=== PATIENT | male | born 1965 | race Caucasian/White ===

== ENCOUNTER → 2021-01-28 12:23 | Outpatient (REF) | payer MEDICAID, SELFPAY ==
--- NOTE | 2021-01-28 13:00 | CA_ITS ---
Transthoracic Echocardiogram Patient (Last, First, Middle): Radhames Carrillo, Gender: Male Date of : 1965 Age: 55 Procedure Date: 01/28/2021 Procedure Type: Transthoracic Echocardiogram Location: OP Height: 180.34 cm Weight: 108.86 kg BSA: 2.28 m2 Heart Rate: bpm BP: 122 / 80 mmHg Echocardiograph Tech: Referring MD: Hever Finch MD Symptoms: I42.8 CARDIOMYOPATHY Study Quality: Good ECG Rhythm: Sinus Conclusions: - The left ventricular systolic function is normal. The visually estimated ejection fraction is between 60-65%. - No obvious valvular pathology seen on this study. Findings Left Ventricle Normal left ventricular cavity size. There is normal left ventricular wall thickness. The left ventricular systolic function is normal. The visually estimated ejection fraction is between 60-65%. There is no evidence of regional wall motion abnormalities. Diastolic function is normal for age. Right Ventricle Normal right ventricular cavity size and systolic function. Atria The left atrium is normal in size. The right atrium is normal in size. Aortic Valve There is a normal trileaflet aortic valve. There is no aortic valve stenosis. There is no aortic valve regurgitation. Mitral Valve The mitral valve appears normal. There is no mitral valve regurgitation. There is no mitral valve stenosis. Pulmonic Valve The pulmonic valve was not well visualized. Tricuspid Valve Normal tricuspid valve structure. There is trace tricuspid valve regurgitation. The pulmonary artery systolic pressure is normal. Great Vessels Top normal ascending aortic size at 3.7 cm. Venous The inferior vena cava is normal in size and collapses greater than 50% with inspiration. Pericardium/Pleural There is no evidence of pericardial effusion. Prior Study Comparison No significant change compared to prior study dated: 11/14/2019. Recommendations, Care & Conclusions No obvious valvular pathology seen on this study. Measurements 2D Linear Measurements IVSd: 1.02 0.6-0.9/0.6-1.0 cm LVIDd: 4.35 3.9-5.3/4.2-5.9 cm LVIDd Index: 1.91 2.4-3.2/2.2-3.1 cm/m2 LVIDs: 2.88 2.0-3.6 cm LVPWd: 0.96 0.7-1.1 cm Ao Root: 3.80 2.1-3.5 cm LA Diam: 3.80 2.7-3.8/3.0-4.0 cm LAIDs Index: 1.67 1.5-2.3 cm/m2 LV Mass: 178.55 67-162/88-224 g LV Mass Index: 78.31 43-95/49-115 g/m2 LVOT Diam: 2.20 3.0+(-)1.3 cm 2D Systolic Function EF 4C: 63.50 >55% EF 2C: 50.00 >55% EF BiP: 59.30 >55% Mitral Valve MV Pk E: 0.67 MV PK A: 0.91 MV Decel Time: 92.00 E/A: 0.70 E'Lateral: 11.10 E'Medial: 6.67 E/E' Med: 10.10 E/E' Lat: 6.10 PHT: 27.00 MVA PHT: 8.15 Decel Grundy: 7.36 Aortic Valve AoV Pk Alan: 1.44 AoV Mn Alan: 0.92 AoV VTI: 0.23 AoV Pk Grad: 8.00 Aov Mn Grad: 4.00 EDOUARD Cont.VTI: 3.38 LVOT LVOT Pk Alan: 1.15 LVOT Mn Alan: 0.76 LVOT VTI: 0.20 LVOT Pk Grad: 5.00 LVOT Mn Grad: 3.00 LVOT Diam: 2.20 LVOT Area: 3.80 Diastolic Function MV Pk E: 0.67 MV Pk A: 0.91 E/A: 0.70 E'Medial: 6.67 E/E' Med: 10.10 E' Laterial: 11.10 E/E' Lat: 6.10 Tricuspid Valve TR Pk Alan: 2.50 TR Pk Grad: 25.00 RA Press: 3.00 RVSP: 28.00 Great Vessels Aorta Ao Root-2D: 3.80 2.0-3.7 cm Ao Asc: 3.70 2.1-3.4 cm Pulmonary Valve PV Pk Alan: 1.00 Peak PV Grad: 4.00 Updated in Other Vendor System with Status of Final James Julian MD electronically signed on 01/28/2021 4:45:48 PM with status of Final
== END ==
LOC: HO.CARD 12:23
PROVIDERS: PCP Family Medicine; Visit Provider Internal Medicine Cardiovascular Disease
DX: I42.9 Cardiomyopathy, unspecified (principal)
CPT/HCPCS: 93306

== ENCOUNTER → 2021-04-24 09:44 | Outpatient (REF) | payer MEDICAID, SELFPAY ==
--- NOTE | ~2021-04-24 | NM_ITS ---
Myocardial perfusion study Indication: Chest pain to evaluate for myocardial ischemia Technique: The patient was brought in for a Lexiscan perfusion study on 04/24/2021. Patient performed low-level exercise and was injected 0.4 mg of Lexiscan intravenously. Within a minute of injection, 35 mCi of sestamibi was given intravenously. Images were obtained using the SPECT gamma camera interlaced with the gating device. Images were obtained in supine position. Resting perfusion study was performed on 04/25/2021. Patient was administered 35 mCi of sestamibi intravenously at rest. Images were then obtained in supine position. Images obtained with and without CT attenuation. Total DLP 104 mGy-cm. Images were processed with the software and compared side to side in short axis, horizontal long axis and vertical long axis views. Findings: The stress perfusion study showed nondistended images show mildly reduced uptake in the inferior wall of the LV myocardium. Remainder of the LV myocardium normally perfused. Attenuation corrected images show normal uptake of radiotracer in all segments of LV myocardium. The gated study shows normal LV systolic function with calculated LVEF of 70%. LV cavity is normal in size. The gated study shows normal systolic wall thickening and contraction of segments. Resting study shows no change in perfusion in compared to stress perfusion study. Gating at rest reveals normal systolic wall motion with ejection fraction at 57%. The findings are consistent with normal myocardial perfusion. NM/NM gopi perf SPECT rest & str Impression: 1. Myocardial perfusion imaging study shows normal myocardial perfusion 2. Gated LVEF is 70% 3. Transient ischemic dilatation not present EKG is nondiagnostic for ischemia
--- NOTE | 2021-04-24 09:51 | CA_ITS ---
Acquisition Time: 2021-04-24 10:05:56 Total Exercise Time: 00:02:00 Test Indications: SOB, CP Medications: SEE CHART Protocol: LEXISCAN Max HR: 122 BPM 73% of Pred: 167 BPM Max BP: 130/080 mmHG Max Work Load: 1.0 METS Pharmacological stress test with Lexiscan injection, while sitting and kicking his legs, without anginal symptoms, with isolated PVC, with normotensive response to injection, with nondiagnostic EKG for ischemia. Nuclear images pending. Test reviewed with Dr Saucedo. Referred By: Hever Finch Overread By: MARIAN NOVAK
== END ==
LOC: HO.CARD 09:44
PROVIDERS: Visit Provider Internal Medicine Cardiovascular Disease
DX: R07.9 Chest pain, unspecified (principal); I42.9 Cardiomyopathy, unspecified
CPT/HCPCS: 78452; 93017; A9500; J0280; J2785

== ENCOUNTER 2021-04-28 00:41 | Emergency (ER) | payer MEDICAID, SELFPAY ==
--- NOTE | 2021-04-28 | ECG_ITS ---
Test Reason : WEAKNESS Blood Pressure : / mmHG Vent. Rate : 109 BPM Atrial Rate : 109 BPM P-R Int : 134 ms QRS Dur : 088 ms QT Int : 338 ms P-R-T Axes : 034 041 053 degrees QTc Int : 455 ms Sinus tachycardia Possible Left atrial enlargement Nonspecific ST and T wave abnormality Abnormal ECG When compared with ECG of 27-OCT-2018 00:25, No significant change was found Referred By: Generic ED Physician Electronically Signed By:MARIN LANG MD
--- NOTE | ~2021-04-28 | XR_ITS ---
EXAMINATION: XR CHEST CLINICAL INFORMATION: sob COMPARISON: None TECHNIQUE: Frontal view of the chest was obtained. FINDINGS: Low lung volumes. Patchy linear opacities in both lungs most consistent with atelectasis. No pneumothorax or pleural effusion. Cardiac and mediastinal contours are normal. Pulmonary vasculature is unremarkable. No acute osseous findings. XR/XR chest 1V IMPRESSION: Low lung volumes with bibasilar lateral linear subsegmental atelectasis. No focal airspace consolidation.
--- NOTE | ~2021-04-28 | CT_ITS ---
EXAMINATION: CT ABDOMEN AND PELVIS WITHOUT CONTRAST CLINICAL INFORMATION: Abdominal pain. COMPARISON: 04/25/2019 TECHNIQUE: Multidetector volumetric imaging was performed from the superior aspect of the liver through the pubic symphysis. Sagittal and coronal reformatted images were obtained on the technologist's workstation. This CT examination was performed using dose optimization techniques as appropriate, variously including the following: *Automated exposure control *Adjustment of mA and/or kV according to patient size (this includes techniques or standardized protocols for targeted exams where dose is matched to indication/reason for exam; i.e. extremities or head) *Use of iterative reconstruction technique DLP: 812 mGy-cm FINDINGS: LUNG BASES: Mild subsegmental bibasilar atelectasis, dependent in location. LIVER, GALLBLADDER, AND BILIARY TREE: Relative hypoattenuation of the hepatic parenchyma is consistent with steatosis. There is focal fatty sparing around the gallbladder fossa. Liver is enlarged, measuring 25 cm craniocaudal. Contour is normal. No focal lesions are identified in these unenhanced images. No biliary ductal dilatation. The gallbladder is unremarkable with no evidence of radiopaque gallstones, gallbladder wall thickening, or obvious pericholecystic inflammatory changes. PANCREAS: Unremarkable. SPLEEN: Enlarged, measuring 17 cm in greatest diameter. No focal lesions. ADRENAL GLANDS: Unremarkable. KIDNEYS AND URETERS: The kidneys are normal in size, shape, and attenuation. No hydronephrosis, hydroureter, or calculi seen. Mild bilateral perinephric stranding. BLADDER: Unremarkable. GASTROINTESTINAL TRACT: Stomach, small bowel, and colon are normal in caliber. There is mild pericolonic fat stranding in the cecum and ascending colon. Sensitivity for bowel wall thickening is somewhat limited given the absence of intravenous or oral contrast material. Mild bowel wall thickening is present in the ascending and transverse colon as well. Appendix is not well seen. No evidence of acute appendicitis. No intraperitoneal free fluid or free air. ABDOMINAL WALL: No significant hernia is appreciated. LYMPH NODES: A few small reactive mesenteric nodes are present in the right lower quadrant, measuring up to 8 mm in diameter. No retroperitoneal adenopathy. VASCULAR: A few foci of calcific atherosclerosis are present at the major visceral branches of the abdominal aorta. No aneurysmal dilatation. PELVIC VISCERA: The prostate and seminal vesicles are unremarkable. OSSEOUS STRUCTURES: Mild to moderate degenerative disc disease is present at L5-S1. Mild osteoarthritis is evident in both hips. Focal AVN is evident at the left femoral head, likely chronic. CT/CT abdomen pelvis wo con IMPRESSION: 1. Mild pericolonic fat stranding in the cecum and ascending colon with subtle wall thickening as can be seen with mild colitis. Sensitivity and specificity are somewhat limited without oral or intravenous contrast. 2. Hepatosplenomegaly. Hepatic steatosis.
[2021-04-28 00:49] VITALS: BP 123/69; BP 136/86; PULSE 105; RESP 30; TEMP 37.2; O2SAT 89; O2SAT 94; BMI 33.5
--- NOTE | 2021-04-28 01:17 | ED.NAVMDI ---
HPI - Nausea/Vomiting/Diarrhea General Chief complaint: Nausea/Vomiting/Diarrhea Stated complaint: abd pain vomiting diarrhea Time Seen by Provider: 04/28/21 01:16 History of Present Illness HPI Narrative: 55-year-old male with a history of non-Hodgkin's lymphoma presents today with having abdominal pain. Diffuse. Associated with nausea vomiting diarrhea. No travel history patient from home. Positive history of non-Hodgkin's. Currently not on chemo or radiation. Patient having some fever with these episodes. Patient denies any coughing congestion upper respiratory symptoms. Had had his coronavirus vaccine x2 over 2 weeks ago. Patient denies any blood in his stool. Pain is diffuse 03/10 Related Data Previous Rx's Medication Instructions Recorded ondansetron 4 mg PO TID PRN 5 Days #10 tab 04/28/21 Allergies Allergy/AdvReac Type Severity Reaction Status Date / Time iodine [IODINE] Allergy Unknown DIFFICULTY Unverified 07/18/20 16:25 BREATHING SEAFOOD Allergy Unknown ANAPHYLAXIS Uncoded 07/18/20 16:25 seafood Allergy Unknown Uncoded 05/06/20 00:00 Review of Systems Review of Systems: Constitutional: No Weight loss, No Fever, No Chills, No Night Sweats, No Fatigue, No Malaise ENT/Mouth: No Hearing loss, No Ear Pain, No Nasal Congestion, No Sinus Pain, No Hoarseness, No sore throat, No Rhinorrhea, No Swallowing Difficulty Eyes: No Eye Pain, No Swelling, No Redness, No Foreign Body, No Discharge, No Vision Changes Cardiovascular: No Chest Pain, No SOB, No Dyspnea on Exertion, No Orthopnea, No Edema, No Palpitations Respiratory: No Cough, No Sputum, No Wheezing, No Smoke Exposure, No Dyspnea Gastrointestinal: positive nausea, positive vomiting positive diarrhea Genitourinary: no irregular bleeding, No Dysuria, No Urinary Frequency, No Hematuria, No Urinary Incontinence, No Urgency, No Flank Pain, No Urinary Flow Changes, No Hesitancy Musculoskeletal: No joint pain, No Myalgias, No Joint Swelling Skin: No Skin Lesions, No rash Neuro: No Weakness, No Numbness, No Paresthesias, No Loss of Consciousness, No Dizziness, No Headache Psych: No Anxiety/Panic, No Depression, No SI/HI/AH/VH, No Social Issues, Heme/Lymph: No Bruising, No Bleeding,No Lymphadenopathy Endocrine: No Polyuria, No Polydipsia, No Temperature Intolerance [facility] Past Medical History Attestation statement: The following information was validated with the patient. Social History Social History Advance Directives: No Physical Exam Vital Signs: Vital Signs: Last Vital Signs Temp 99.0 F 04/28/21 00:49 Pulse 107 H 04/28/21 02:00 Resp 32 H 04/28/21 02:00 BP 128/71 04/28/21 02:00 Pulse Ox 96 04/28/21 02:00 Oxygen Flow Rate 2 04/28/21 00:49 Body Mass Index 33.5 Appearance: Alert. Oriented X3. No acute distress. Eyes: Pupils equal, round and reactive to light. ENT: Pharynx normal. Neck: Normal inspection. Neck supple. No lymph nodes noted. No crepitus CVS: Normal heart rate and rhythm. Pulses normal. Normal S1 and S2 Respiratory: No respiratory distress. Breath sounds normal. No Wheezing. No rales Abdomen: Soft and nontender. No rigidity. No distention. good BS x4 Skin: Skin warm and dry. Normal skin color. Normal skin turgor. Extremities: No lower extremity edema. Neurovascular intact to all extremities. No Lacerations. No Rash Neuro: Oriented X 3. No motor deficit. No sensory deficit. Moving all extermities. No slurred speech MDM - Nausea/Vomiting/Diarrhea MDM Narrative Medical decision making narrative: CT scan of the abdomen negative for obstruction, abscess, perforation. LFTs are normal white counts normal hemoglobin is normal. Patient's lipase was normal. No evidence for pancreatitis. Chest x-ray was negative for any acute evidence of pneumonia pneumothorax. Patient's COVID test was negative. In stable condition will discharge patient home Lab Data Result diagrams: 04/28/21 01:49 04/28/21 01:49 Labs: Lab Results 04/28/21 04/28/21 04/28/21 Range/Units 01:49 01:49 01:49 WBC 9.0 (4.8-10.8) X10*3/uL RBC 4.34 L (4.60-5.80) X10*6/uL Hgb 13.5 L (14.0-18.0) g/dl Hct 41.7 L (42-52) % MCV 96.1 (80-98) fL MCH 31.1 (27.0-33.0) pg MCHC 32.4 (31.0-36.0) g/dl RDW 12.5 (11.0-16.0) % Plt Count 128 L (160-400) X10*3/uL MPV 9.7 (9.4-12.4) fL Immature Gran % (Auto) 0.4 (0.0-0.4) % Neut % (Auto) 84.2 H (45-73) % Lymph % (Auto) 9.2 L (20-40) % [place] % (Auto) 5.9 (2-11) % Eos % (Auto) 0.1 (0-4) % Baso % (Auto) 0.2 (0-2) % Lymph # (Auto) 0.8 L (1.2-4.9) X10*3/uL [place] # (Auto) 0.5 (0.1-1.2) X10*3/uL Eos # (Auto) 0.0 (0.0-0.4) X10*3/uL Baso # (Auto) 0.0 (0.0-0.2) X10*3/uL Abs Immat Gran (auto) 0.04 H (0.00-0.03) X10*3/uL Absolute Neuts (auto) 7.5 (2.0-8.3) X10*3/uL Absolute Nucleated RBC 0.000 (0.0-0.012) X10*3/uL Nucleated RBC % (auto) 0.0 (0.0-0.2) /100WBC Sodium 135 (135-145) mmol/L Potassium 4.1 (3.3-5.1) mmol/L Chloride 99 (96-108) mmol/L Carbon Dioxide 23 (22-29) mmol/L Anion Gap 17 (12-20) BUN 14 (9-16) mg/dL Creatinine 0.97 (0.5-1.4) mg/dL Estim Creat Clear Calc 110.5 Estimated GFR > 60 Random Glucose 223 H (60-115) mg/dL Calcium 9.5 (8.4-10.2) mg/dL Total Bilirubin 0.9 (0.0-1.0) mg/dL AST 35 (5-37) U/L ALT 45 H (0-40) U/L Alkaline Phosphatase 90 (39-117) U/L Total Protein 7.4 (6.5-8.0) g/dL Albumin 4.5 (3.5-5.0) g/dL Lipase 30 (8-78) U/L COVID-19 (LAYLA) Negative (Negative) COVID-19 Clin Com See Note Discharge Plan Discharge Clinical Impression: Gastroenteritis Patient Disposition: Home, Self-Care Instructions: Acute Nausea and Vomiting (ED) Prescriptions: New ondansetron 4 mg tablet,disintegrating 4 mg PO TID PRN (Reason: nausea and vomiting) 5 Days Qty: 10 RF: 0 Referrals: Renetta Oliveros MD [Primary Care Provider] - 2 days
[2021-04-28 01:54] LABS: Basophils Percent Auto 0.2 % (0-2); Eosinophils Percent Auto 0.1 % (0-4); Hemoglobin 13.5 g/dl (14.0-18.0); MANUAL DIFF FLAG NO; PLT CLUMP 1; SCAN SMEAR FLAG 1
[2021-04-28 01:56] LABS: Hematocrit 41.7 % (42-52); Imm Gran Abs Auto 0.04 X10*3/uL (0.00-0.03); Imm Gran Pct Auto 0.4 % (0.0-0.4); Lymphocytes Absolute Auto 0.8 X10*3/uL (1.2-4.9); Lymphocytes Percent Auto 9.2 % (20-40); Mean Corpuscular HGB Conc 32.4 g/dl (31.0-36.0); Mean Corpuscular Hemoglobin 31.1 pg (27.0-33.0); Mean Corpuscular Volume 96.1 fL (80-98); Mean Platelet Volume 9.7 fL (9.4-12.4); Monocytes Absolute Auto 0.5 X10*3/uL (0.1-1.2); Monocytes Percent Auto 5.9 % (2-11); Neutrophils Absolute Auto 7.5 X10*3/uL (2.0-8.3); Neutrophils Percent Auto 84.2 % (45-73); Platelet Count 128 X10*3/uL (160-400); Red Blood Count 4.34 X10*6/uL (4.60-5.80); Red Cell Distribution Width 12.5 % (11.0-16.0)
[2021-04-28 02:00] VITALS: BP 128/71; PULSE 107; RESP 32; O2SAT 96
[2021-04-28] MEDS: 0.9 % Sodium Chloride 1,000 ML 999 ML IV (02:07)
[2021-04-28] MEDS: ondansetron HCL 4 MG/2 ML VIAL IVPUSH (02:08)
[2021-04-28 02:10] LABS: COVID-19 Test Negative (Negative); IDNOW Serial# 9DD0AD1C
[2021-04-28 02:22] LABS: Alanine Aminotransferase 45 U/L (0-40); Albumin Level 4.5 g/dL (3.5-5.0); Alkaline Phosphatase 90 U/L (39-117); Anion Gap 17 (12-20); Aspartate Amino Transferase 35 U/L (5-37); Bilirubin Total 0.9 mg/dL (0.0-1.0); Blood Urea Nitrogen 14 mg/dL (9-16); Calcium 9.5 mg/dL (8.4-10.2); Carbon Dioxide 23 mmol/L (22-29); Chloride 99 mmol/L (96-108); Creatinine Clr Calc Pharmacy 110.5; Estimated Glomerular Filt Rate > 60; Glucose Random 223 mg/dL (60-115); Potassium 4.1 mmol/L (3.3-5.1); Sodium 135 mmol/L (135-145); Total Protein 7.4 g/dL (6.5-8.0)
[2021-04-28 03:34] LABS: Lipase 30 U/L (8-78)
[2021-04-28 04:00] VITALS: BP 119/66; PULSE 112; RESP 16; O2SAT 97
[2021-04-28 05:37] VITALS: BP 115/57; PULSE 111; RESP 20; O2SAT 92
== END 2021-04-28 05:46 | disposition home or self-care (01) ==
PROVIDERS: Emergency Provider Emergency Medicine Emergency Medical Services; PCP Family Medicine
DX: K52.9 Noninfective gastroenteritis and colitis, unspecified (principal); Z85.72 Personal history of non-Hodgkin lymphomas; Z20.822 Contact with and (suspected) exposure to COVID-19
CPT/HCPCS: 36415; 71045; 74176; 80053; 83690; 85025; 87635; 93005; 96361; 96374; 99284; 99285; J2405

== ENCOUNTER 2021-06-09 17:01 | Emergency (ER) | payer MEDICAID, SELFPAY ==
--- NOTE | 2021-06-09 18:37 | PC.NURSE ---
pt left without being triaged
== END 2021-06-09 18:38 | disposition left against medical advice (07) ==
PROVIDERS: Emergency Provider Emergency Medicine
DX: R50.9 Fever, unspecified (principal); R19.7 Diarrhea, unspecified

== ENCOUNTER 2021-09-12 08:07 | Outpatient (REF) | payer MEDICAID, SELFPAY | END 2021-09-12 08:08 | disposition home or self-care (01) | LOC: HO.LAB 08:07 | PROVIDERS: Visit Provider Internal Medicine | DX: Z20.822 Contact with and (suspected) exposure to COVID-19 (principal) | CPT/HCPCS: C9803; U0003; U0005 ==

== ENCOUNTER 2021-11-07 12:05 | Outpatient (REF) | payer MEDICAID, SELFPAY ==
[2021-11-07 13:34] LABS: Binax Internal Control QC Valid; Binax Now Covid-19 Ag Positive (Negative)
== END 2021-11-07 12:06 | disposition home or self-care (01) ==
LOC: HO.LAB 12:05
PROVIDERS: Visit Provider Internal Medicine
DX: Z20.822 Contact with and (suspected) exposure to COVID-19 (principal)
CPT/HCPCS: 36415; C9803

== ENCOUNTER 2021-11-21 09:53 | Outpatient (REF) | payer MEDICAID, SELFPAY ==
[2021-11-21 10:17] LABS: Binax Internal Control QC Valid; Binax Now Covid-19 Ag Negative (Negative)
== END 2021-11-21 09:54 | disposition home or self-care (01) ==
LOC: HO.LAB 09:53
PROVIDERS: Visit Provider Internal Medicine
DX: Z20.822 Contact with and (suspected) exposure to COVID-19 (principal)
CPT/HCPCS: C9803

== ENCOUNTER → 2022-04-13 08:24 | Outpatient (BNV) | payer MEDICAID, SELFPAY | PROVIDERS: PCP Family Medicine; Visit Provider Internal Medicine | DX: C81.90 Hodgkin lymphoma, unspecified, unspecified site (principal) | CPT/HCPCS: 99213; 99214 ==

== ENCOUNTER 2022-04-17 | Outpatient (REF) | payer MEDICAID, SELFPAY ==
--- NOTE | ~2022-04-17 | CT_ITS ---
EXAMINATION: CT CHEST, ABDOMEN AND PELVIS WITHOUT CONTRAST CLINICAL INFORMATION: Recurrence. History of lymphoma. COMPARISON: Chest x-ray 04/20/2021, CT chest without contrast 04/25/[address] abdomen 04/28/2021. TECHNIQUE: 5 mm thin axial and reformatted 3 mm thin sagittal and coronal images of chest, abdomen and pelvis were obtained without contrast. DLP: 995 mGy-cm. FINDINGS: CHEST: Lungs: The lungs are well expanded and clear of acute pneumonic process. There are mild atelectatic changes right upper lobe. There are a few scattered lung nodules: A 4 mm nodule left lower lobe axial image 373/7, a 5 mL nodule in the lingula axial image 342/7, a 4 mm nodule left upper lobe para-aortic axial image 200/7, and 4 mm nodule right middle lobe pericardiac axial image 343/7, all stable. No additional nodules seen. There is no mass.. Mediastinum: There is no pericardial effusion. Heart size and the great vessels are normal caliber. Thyroid lobes are symmetric and normal. The central trachea and the bronchi are widely patent. Small shotty lymph nodes are seen in the para-aortic region and the left pretracheal space. Pleura: There is no pleural thickening, effusion or calcified plaques. Axilla: No abnormal lymph nodes seen. The chest wall is unremarkable. Osseous Structures: There is no lytic or sclerotic process seen. There is mild ventral spondylosis throughout dorsal spine. ABDOMEN AND PELVIS: Liver Ducts and Gallbladder: The liver is normal size, mildly attenuated but normal contour. No focal lesion or intrahepatic ductal dilatation seen. The gallbladder is unremarkable. Spleen: Unremarkable. Pancreas: Unremarkable. Adrenal glands: Unremarkable. Kidneys: Both kidneys are normal size, shape and position. No radiopaque renal calculi or hydronephrosis seen. There is mild perinephric stranding. Urinary Bladder: Unremarkable. GI Tract: There is scattered stool and gas seen throughout the colon without distention. Oral contrast-opacified small bowel loops are normal caliber. Abdominal Wall: Unremarkable. Pelvis: There is no free air or free fluid. Lymphovascular Structures The abdominal aorta is normal caliber. There is a prominent left para-aortic lymph node measuring 1.3 cm in axial image 47/3. No additional lymph nodes seen. Osseous Structures: There is a vacuum disc phenomena and ventral spondylosis L5-S1 disc level. No lytic or sclerotic process seen. CT/CT abdomen pelvis wo con IMPRESSION: Stable pulmonary nodules. There is right upper lobe atelectasis. There are small shotty mediastinal lymph nodes, none of which are abnormal size. Prominent left retroperitoneal para-aortic lymph node measuring 1.3 cm. There are small shotty lymph nodes as well. Mild attenuation of liver likely hepatic steatosis.
[2022-04-17] MEDS: Barium Sulfate Oral (Vanilla) 450 ML ORAL.SUSP 900 ML PO (11:12)
== END 2022-04-17 00:01 | disposition home or self-care (01) ==
LOC: HO.CT
PROVIDERS: PCP Family Medicine; Visit Provider Internal Medicine
DX: C81.90 Hodgkin lymphoma, unspecified, unspecified site (principal)
CPT/HCPCS: 71250; 74176

== ENCOUNTER 2022-06-24 10:01 | Outpatient (REF) | payer MEDICAID, SELFPAY ==
--- NOTE | ~2022-06-24 | US_ITS ---
EXAMINATION: US ABDOMEN COMPLETE CLINICAL INFORMATION: Fatty liver. COMPARISON: CT abdomen and pelvis 04/17/2022. Ultrasound abdomen 06/27/2018 and 07/11/2013. TECHNIQUE: Real-time imaging of the abdominal viscera. FINDINGS: PANCREAS: Normal. ABDOMINAL AORTA: The proximal, mid, and distal segments are normal in caliber. INFERIOR VENA CAVA: Visualized portions are normal. LIVER: The liver is normal in size. The liver contour is normal. There is increased liver echogenicity. No focal hepatic lesion. There is no intrahepatic biliary duct dilatation seen. GALLBLADDER: The gallbladder wall thickness is 0.2 cm. The gallbladder is physiologically distended without evidence of stones, sludge, polyps, wall thickening or pericholecystic fluid. COMMON BILE DUCT: Normal in caliber measuring 0.3 cm in diameter. RIGHT KIDNEY: No hydronephrosis or focal parenchymal lesions. There is an echogenic stone in midpole measuring 0.4 x 0.4 cm. The kidney measures 13.0 cm in maximum dimension. LEFT KIDNEY: Normal. No hydronephrosis. No renal calculi or focal parenchymal lesions. The kidney measures 14.0 cm in maximum dimension. SPLEEN: Normal. The spleen measures 13.2 cm in maximum dimension. FREE FLUID: None. US/US abdomen complete IMPRESSION: Small echogenic stone midpole measuring 0.4 x 0.4 cm. No hydronephrosis. Mild hepatic steatosis without focal lesion. Rest of the abdominal ultrasound is unremarkable.
== END 2022-06-24 10:02 | disposition home or self-care (01) ==
LOC: HO.US 10:01
PROVIDERS: Visit Provider Family Medicine
DX: K76.0 Fatty (change of) liver, not elsewhere classified (principal)
CPT/HCPCS: 76700

== ENCOUNTER 2023-03-12 12:16 | Outpatient (REF) | payer MEDICAID, SELFPAY ==
--- NOTE | ~2023-03-12 | XR_ITS ---
EXAMINATION: Bilateral knee x-ray CLINICAL INFORMATION: Bilateral primary osteoarthritis COMPARISON: Previous left knee x-ray most recent April 2020 and right knee x-ray June 2016 TECHNIQUE: 4 views of each knee FINDINGS: Right: Bone alignment is normal. No fracture or dislocation. Mild arthritis at the medial femoral tibial and patellofemoral joints with joint space narrowing and osteophyte formation. Small osteophyte at the quadriceps tendon insertion to the patella. Small joint effusion. Left: Bone alignment is normal. No fracture or dislocation. Moderate to severe at the femoral tibial and patellofemoral joints with joint space narrowing and osteophyte formation. Osteophyte at the quadriceps tendon insertion to the patella. Small joint effusion. XR/XR knee LT 3V IMPRESSION: Bilateral arthritis, left greater than right.
--- NOTE | ~2023-03-12 | XR_ITS ---
EXAMINATION: Bilateral knee x-ray CLINICAL INFORMATION: Bilateral primary osteoarthritis COMPARISON: Previous left knee x-ray most recent April 2020 and right knee x-ray June 2016 TECHNIQUE: 4 views of each knee FINDINGS: Right: Bone alignment is normal. No fracture or dislocation. Mild arthritis at the medial femoral tibial and patellofemoral joints with joint space narrowing and osteophyte formation. Small osteophyte at the quadriceps tendon insertion to the patella. Small joint effusion. Left: Bone alignment is normal. No fracture or dislocation. Moderate to severe at the femoral tibial and patellofemoral joints with joint space narrowing and osteophyte formation. Osteophyte at the quadriceps tendon insertion to the patella. Small joint effusion. XR/XR knee standing BI IMPRESSION: Bilateral arthritis, left greater than right.
--- NOTE | ~2023-03-12 | XR_ITS ---
EXAMINATION: Bilateral knee x-ray CLINICAL INFORMATION: Bilateral primary osteoarthritis COMPARISON: Previous left knee x-ray most recent April 2020 and right knee x-ray June 2016 TECHNIQUE: 4 views of each knee FINDINGS: Right: Bone alignment is normal. No fracture or dislocation. Mild arthritis at the medial femoral tibial and patellofemoral joints with joint space narrowing and osteophyte formation. Small osteophyte at the quadriceps tendon insertion to the patella. Small joint effusion. Left: Bone alignment is normal. No fracture or dislocation. Moderate to severe at the femoral tibial and patellofemoral joints with joint space narrowing and osteophyte formation. Osteophyte at the quadriceps tendon insertion to the patella. Small joint effusion. XR/XR knee RT 3V IMPRESSION: Bilateral arthritis, left greater than right.
[2023-03-12 13:28] LABS: MANUAL DIFF FLAG NO
[2023-03-12 14:34] LABS: Basophils Percent Auto 0.6 % (0-2); Eosinophils Absolute Auto 0.1 X10*3/uL (0.0-0.4); Eosinophils Percent Auto 1.1 % (0-4); Hematocrit 45.6 % (42.0-52.0); Hemoglobin 14.8 g/dl (14.0-18.0); Imm Gran Abs Auto 0.05 X10*3/uL (0.00-0.03); Imm Gran Pct Auto 0.8 % (0.0-0.4); Lymphocytes Absolute Auto 1.8 X10*3/uL (1.2-4.9); Lymphocytes Percent Auto 27.6 % (20-40); Mean Corpuscular HGB Conc 32.5 g/dl (31.0-36.0); Mean Corpuscular Hemoglobin 31.2 pg (27.0-33.0); Monocytes Absolute Auto 0.4 X10*3/uL (0.1-1.2); Monocytes Percent Auto 6.7 % (2-11); Neutrophils Absolute Auto 4.1 x10*3/uL (2.0-8.3); Neutrophils Percent Auto 63.2 % (45-73); Platelet Count 190 X10*3/uL (160-400); Red Blood Count 4.75 X10*6/uL (4.60-5.80); Red Cell Distribution Width 12.6 % (11.0-16.0); White Blood Count 6.4 X10*3/uL (4.8-10.8)
[2023-03-12 15:10] LABS: Alanine Aminotransferase 34 U/L (0-40); Albumin Level 4.8 g/dL (3.5-5.0); Alkaline Phosphatase 117 U/L (39-117); Anion Gap 17 (12-20); Aspartate Amino Transferase 27 U/L (5-37); Bilirubin Total 1.1 mg/dL (0.0-1.0); Blood Urea Nitrogen 23 mg/dL (9-16); Calcium 10.2 mg/dL (8.4-10.2); Carbon Dioxide 29 mmol/L (22-29); Chloride 94 mmol/L (96-108); Estimated Glomerular Filt Rate > 60; Glucose Random 385 mg/dL (60-115); Potassium 4.7 mmol/L (3.3-5.1); Sodium 135 mmol/L (135-145); Total Protein 8.1 g/dL (6.5-8.0)
[2023-03-12 15:21] LABS: Erythrocyte Sedimentation Rate 11 MM/HR (0-15)
== END 2023-03-12 12:17 | disposition home or self-care (01) ==
LOC: HO.LAB 12:16
PROVIDERS: PCP Family Medicine; Visit Provider Student in an Organized Health Care Education/Training Program
DX: M17.0 Bilateral primary osteoarthritis of knee (principal); R74.8 Abnormal levels of other serum enzymes
CPT/HCPCS: 36415; 73562; 73564; 73565; 80053; 82085; 82550; 85025; 85652; 99202

== ENCOUNTER → 2023-04-13 08:31 | Outpatient (BNVA) | payer MEDICAID, SELFPAY | PROVIDERS: PCP Family Medicine; Visit Provider Nurse Practitioner Family | DX: N20.0 Calculus of kidney (principal); Z79.82 Long term (current) use of aspirin; Z79.899 Other long term (current) drug therapy | CPT/HCPCS: 51798; 99202 ==

== ENCOUNTER 2023-05-07 08:28 | Outpatient (REF) | payer MEDICAID, SELFPAY ==
--- NOTE | ~2023-05-07 | US_ITS ---
EXAMINATION: US RETROPERITONEAL LIMITED (RENAL ONLY) CLINICAL INFORMATION: Calculus of kidney. COMPARISON: Ultrasound abdomen complete 06/24/2022 and 06/27/2018. CT abdomen and pelvis 11/17/2021. TECHNIQUE: Real-time imaging of the kidneys. FINDINGS: RIGHT KIDNEY: 14.3 x 7.0 x 7.0 cm (SAG x AP x TRV). The kidney is normal in size, contour, and echogenicity. Renal cortical thickness is normal. No renal calculi or hydronephrosis. 0.8 x 0.4 x 1.0 cm simple lower pole cyst is seen. No imaging follow-up is recommended. LEFT KIDNEY: 13.0 x 6.6 x 6.4 cm (SAG x AP x TRV). The kidney is normal in size, contour, and echogenicity. Renal cortical thickness is normal. No renal calculi or hydronephrosis. 1.1 x 0.7 x 0.7 cm simple lower pole cyst and 0.3 x 0.3 x 0.5 cm simple mid to lower pole cyst are seen. No imaging follow-up is recommended. US/US renal BI IMPRESSION: No significant abnormality.
== END 2023-05-07 08:29 | disposition home or self-care (01) ==
LOC: HO.US 08:28
PROVIDERS: PCP Family Medicine; Visit Provider Nurse Practitioner Family
DX: N20.0 Calculus of kidney (principal)
CPT/HCPCS: 76775

== ENCOUNTER 2023-05-14 08:32 | Outpatient (AMB) | payer MEDICAID, SELFPAY ==
--- NOTE | 2023-05-14 08:35 | MHC.OFFVIS ---
Intake Intake Visit Reasons: 1m/US(set) Intake Note: Patient is present for follow up nephrolithiasis/ultrasound (imaging 05/07/23) Urology Medications: Vitamin B6 Blood Thinner: none Parts Consultant Required: Yes Parts Consultant Name: Brittny Accompanied by: Unknown Allergies iodine [IODINE] Allergy (Unknown, Unverified 05/16/23 16:38) DIFFICULTY BREATHING SEAFOOD Allergy (Unknown, Uncoded 05/16/23 16:38) ANAPHYLAXIS Medication List - Last Reconciled 05/16/23 by VERONICA Lee alcohol swabs (Alcohol Prep Pads) 1 pad topical BID allopurinol 1 tab PO QAM aspirin 1 tab PO QAM atorvastatin 1 tab PO QPM mjykyydmi-igorzywi-vccxzar ala 50-200-25 mg (Biktarvy) 1 tab PO BEDTIME blood sugar diagnostic (FreeStyle Lite Strips) carvedilol 1 tab PO BID cholecalciferol (vitamin D3) 25 mcg PO QAM clotrimazole 1% appl topical DAILY divalproex ER 250 mg PO QAM divalproex ER 500 mg PO BEDTIME empagliflozin (Jardiance) 25 mg PO QAM gabapentin 1 cap PO TID lancets (TRUEplus Lancets) lisinopril 1 tab PO QAM omega-3 fatty acids-fish oil 340-1,000 mg (Fish Oil) 2 caps PO BID prazosin 4 mg PO BEDTIME pyridoxine (vitamin B6) 100 mg PO DAILY 90 days sitagliptin phosphate (Januvia) 100 mg PO QAM trazodone 300 mg PO BEDTIME HPI HPI Comments History of Present Illness Details Radhames is a very pleasant [place] Leonean-speaking male patient of Dr. Oliveros who was accompanied by his at today's visit. He has a past medical history of anemia of chronic diseases, dyslipidemia, hypertension, GERD, HIV on HAART, peripheral polyneuropathy, and treated lymphoma. He presents to the office today for a follow up. Of note, patient was seen with approximately 1 month ago as a new patient for nephrolithiasis at which time a renal ultrasound was ordered for further assessment evaluation. These results were reviewed with the patient and his today. Right kidney with no calculi or hydronephrosis noted. 0.8 x 0.4 x 1.0 cm simple lower pole cyst with no imaging follow-up recommended per radiology report. Left kidney with no calculi or hydronephrosis noted. 1.1 x 0.7 x 0.7 cm simple lower pole cyst and 0.3 x 0.3 x 0.5 cm simple mid to lower pole cysts are seen. With no imaging follow-up is recommended per radiology report. When asked patient reports to be doing and feeling well. He denies any issues with his urination. He reports episodes of flank pain have since subsided. When asked he denies urinary urgency, urinary frequency, incontinence, nocturia, hematuria, dysuria, foul smelling urine, changes to urinary stream, flank pain, fever, and or chills. He is happy with his current voiding parameters. In office urinalysis results reviewed with the patient his today. He otherwise offers no issues or concerns at this time. In review of patient's chart it does not appear PSA has been completed. DOROTHY offered however declined. [facility] Medical History Anemia of chronic disease Dyslipidemia Essential hypertension GERD (gastroesophageal reflux disease) HIV (human immunodeficiency virus infection) Peripheral polyneuropathy Tubular adenoma of colon Surgical History History of cardiac catheterization Family History Sister Diabetes Kidney problem Father Diabetes Mother Diabetes Brother Diabetes Kidney problem Heart problem Brother Diabetes Lymphoma Other Family history of arthritis Social History Household Members: Spouse Housing: Apartment Alcohol intake: former Patient Tobacco Use Status: Former Tobacco user service: No Current occupational status: disabled Review of Systems Const Reports as per HPI Eyes Reports no additional complaints ENT Reports no additional complaints Card Reports as per HPI Resp Reports no additional complaints GI Reports as per HPI Reports as per HPI Musc Reports as per HPI Neuro Reports as per HPI Psych Reports no additional complaints Endo Reports no additional complaints Misael/Lymph Details: Patient with a past medical history of Hodgkin's disease. Physical Exam Const General: cooperative, healthy appearing, comfortable, no acute distress, well developed, alert and awake Orientation/consciousness: patient oriented x3 Limitations: no limitations HEENT Head: Yes normal to inspection, Yes normocephalic and Yes atraumatic Ears: hearing grossly normal bilaterally Eyes General: appearance normal, both eyes and all related structures Neck Neck: Yes normal visual inspection and Yes trachea midline Chest Chest palpation & inspection: normal inspection of the chest Resp Effort & Inspection: normal respiratory effort and able to speak in complete sentences Cardio Rate: regular rate GI Inspection: Yes normal to inspection General: Yes no CVA tenderness Back/Spine/Pelvis Back: no CVA tenderness Skin General skin exam: no rashes or lesions noted Neuro General: patient oriented x3 Extrem General: Yes normal to inspection Psych Appearance: grossly normal and well kempt Mental Status: mental status grossly normal Speech and movement: Normal speech and movement present and Clear speech present Affect: normal affect Attitude: cooperative Thought process: Normal thought process present Thought content: Normal thought content present Insight: Good insight present (Psych) Judgement: Good judgement present (Psych) Results AMB Urinalysis, Automated UA Leukoctes 0 Alex/uL Last Edit by [employer] on 05/14/23 08:46 UA Nitrite Negative Last Edit by [employer] on 05/14/23 08:46 UA Urobilinogen 0.2 mg/dL Last Edit by [employer] on 05/14/23 08:46 UA Protein 15 mg/dL Last Edit by [employer] on 05/14/23 08:46 UA pH 6.0 Last Edit by [employer] on 05/14/23 08:46 UA Blood 0 Eduardo/uL Last Edit by [employer] on 05/14/23 08:46 UA Specific [place] 1.015 Last Edit by [employer] on 05/14/23 08:46 UA Ketone Negative Last Edit by [employer] on 05/14/23 08:46 UA Bilirubin 0 mg/dL Last Edit by [employer] on 05/14/23 08:46 UA Glucose 1000 mg/dL Last Edit by [employer] on 05/14/23 08:46 Results Reviewed Results Reviewed: Laboratory Last Values Urine pH (Auto) 6.0 05/14/23 08:36 Specific [place] (Auto) 1.015 05/14/23 08:36 Urine Protein (Auto) 15 mg/dL 05/14/23 08:36 Glucose (UA)(Auto) 1000 mg/dL 05/14/23 08:36 Urine Ketones (Auto) Negative 05/14/23 08:36 Urine Blood (Auto) 0 Eduardo/uL 05/14/23 08:36 Urine Nitrite (Auto) Negative 05/14/23 08:36 Urine Bilirubin (Auto) 0 mg/dL 05/14/23 08:36 Urine Urobilinogen (Auto) 0.2 mg/dL 05/14/23 08:36 Leukocyte Esterase (Auto) 0 Alex/uL 05/14/23 08:36 Date of Service: 05/07/23 EXAMINATION: US RETROPERITONEAL LIMITED (RENAL ONLY)? FINDINGS: RIGHT KIDNEY: 14.3 x 7.0 x 7.0 cm (SAG x AP x TRV). The kidney is normal in size, contour, and echogenicity. Renal cortical thickness is normal. No renal calculi or hydronephrosis. 0.8 x 0.4 x 1.0 cm simple lower pole cyst is seen. No imaging follow-up is recommended. LEFT KIDNEY: 13.0 x 6.6 x 6.4 cm (SAG x AP x TRV). The kidney is normal in size, contour, and echogenicity. Renal cortical thickness is normal. No renal calculi or hydronephrosis. 1.1 x 0.7 x 0.7 cm simple lower pole cyst and 0.3 x 0.3 x 0.5 cm simple mid to lower pole cyst are seen. No imaging follow-up is recommended. IMPRESSION: No significant abnormality Assessment & Plan Assessment & Plan (1) Renal cyst: Code(s): N28.1 - Cyst of kidney, acquired (2) Nephrolithiasis: Code(s): N20.0 - Calculus of kidney Plan In office urinalysis results reviewed with the patient today; as noted above Recent renal imaging results reviewed with the patient today; as noted above Patient denies any urinary issues or concerns at this time Patient is happy with current voiding parameters Renal ultrasound ordered for 6 months Will obtain PSA for further assessment evaluation Follow-up in 6 months with imaging to be completed prior; or sooner with any issues, concerns, and or questions. Orders: Orders Prostate Specific Antigen 05/14/23 N40.0 - Benign prostatic hyperplasia without lower urinary tract symptoms US renal BI 6 Months N20.0 - Calculus of kidney, N28.1 - Cyst of kidney, acquired AMB Urinalysis Automated 05/14/23 Z13.9 - Encounter for screening, unspecified Patient Instructions: The patient had an opportunity to ask questions regarding the treatment plan. All questions were answered. Physical exam, labs, and imaging were discussed and reviewed in detail. As well as risks, benefits, and discussion of treatment choices. No major barriers to understanding were identified. The patient expressed understanding and agreement with the above treatment plan. The patient was made aware they should contact our office by phone for worsening of their current condition, the appearance of new symptoms, or with any questions or concerns. Compliance is encouraged with any medications and follow up testing that is ordered. It is a privilege to be allowed the opportunity to participate in? your urological care.? Again, if you have any questions or concerns If you have any questions or concerns please do not hesitate to contact me. The office is [phone]. This note is constructed using voice recognition software. While every effort has been made to ensure accuracy plc programmer errors may have been included. Yours sincerely, VERONICA Lee Coding Level of Care Code Est Pt Level 3 (08388) Diagnoses Renal cyst N28.1 Nephrolithiasis N20.0
== END 2023-05-14 09:20 | disposition home or self-care (01) ==
PROVIDERS: PCP Family Medicine; Visit Provider Nurse Practitioner Family
DX: N28.1 Cyst of kidney, acquired (principal); N20.0 Calculus of kidney
CPT/HCPCS: 99213

== ENCOUNTER → 2023-05-14 08:32 | Outpatient (BNVA) | payer MEDICAID, SELFPAY | PROVIDERS: PCP Family Medicine; Visit Provider Nurse Practitioner Family | DX: N28.1 Cyst of kidney, acquired (principal); N20.0 Calculus of kidney | CPT/HCPCS: 99213 ==

== ENCOUNTER → 2023-09-16 19:00 | Outpatient (BNV) | payer MEDICAID, SELFPAY | PROVIDERS: Visit Provider Psychiatry & Neurology Neurology | DX: G47.33 Obstructive sleep apnea (adult) (pediatric) (principal); G47.31 Primary central sleep apnea | CPT/HCPCS: 95810 ==

== ENCOUNTER → 2023-09-16 19:30 | Outpatient (REF) | payer MEDICAID, SELFPAY | LOC: HO.SL 19:30 | PROVIDERS: Visit Provider Family Medicine | DX: G47.33 Obstructive sleep apnea (adult) (pediatric) (principal) | CPT/HCPCS: 95810 ==

== ENCOUNTER 2023-10-08 09:57 | Outpatient (AMB) | payer MEDICAID, SELFPAY ==
[2023-10-08 10:04] VITALS: BP 110/80; PULSE 90; TEMP 36.1; O2SAT 94; BMI 29.5
--- NOTE | 2023-10-08 10:04 | MHC.OFFVIS ---
Intake Vital Signs 10/08/23 10:04 Height 5 ft 11 in Weight 211 lb 10.3 oz BMI 29.5 BP 110/80 Blood Pressure Location Rt brachial Position Sitting Pulse 90 Pulse Source Pulse Oximeter Temp 97 F Temp Source Skin Pulse Oximetry (%) 94 Oxygen Delivery Method Room Air Intake Visit Reasons: CPK elevated Intake Note: Pt last seen 03/12/23, presents today for follow up and test results. Traveling Engineer Required: Yes Traveling Engineer Language: Bioprocess Development Engineer Name: Rani [id number] Information Interpreted: clinical only Accompanied by: Spouse Allergies iodine [IODINE] Allergy (Unknown, Unverified 10/08/23 10:07) DIFFICULTY BREATHING SEAFOOD Allergy (Unknown, Uncoded 10/08/23 10:07) ANAPHYLAXIS Medication List - Last Reconciled 10/08/23 by Ilsa Moeller MD alcohol swabs (Alcohol Prep Pads) 1 pad topical BID allopurinol 1 tab PO QAM aspirin 1 tab PO QAM atorvastatin 1 tab PO QPM cwdcvpzct-kekolvzg-qodaivj ala 50-200-25 mg (Biktarvy) 1 tab PO BEDTIME blood sugar diagnostic (FreeStyle Lite Strips) carvedilol 1 tab PO BID cholecalciferol (vitamin D3) 25 mcg PO QAM clotrimazole 1% 1 appl topical DAILY divalproex ER 250 mg PO QAM divalproex ER 500 mg PO BEDTIME empagliflozin (Jardiance) 25 mg PO QAM gabapentin 1 cap PO TID lancets (TRUEplus Lancets) lisinopril 1 tab PO QAM omega-3 fatty acids-fish oil 340-1,000 mg (Fish Oil) 2 caps PO BID omeprazole 20 mg PO DAILY prazosin 4 mg PO BEDTIME pyridoxine (vitamin B6) 100 mg PO DAILY 90 days sitagliptin phosphate (Januvia) 100 mg PO QAM trazodone 300 mg PO BEDTIME HPI HPI Comments History of Present Illness Details Patient returns for follow-up after completion of his diagnostic workup Initial history: This is a 57-year-old male with past medical history of HIV on HAART, treated lymphoma presents for evaluation of elevated CPK and aldolase. Patient states that he has had bilateral knee pain and bilateral lower extremity pain going up and down his extremities. He was a evaluated by neurologist 2 years ago and was told he has neuropathy. Patient also has diffuse pain everywhere. PFSH Medical History Anemia of chronic disease GERD (gastroesophageal reflux disease) Dyslipidemia Tubular adenoma of colon Essential hypertension Peripheral polyneuropathy HIV (human immunodeficiency virus infection) Surgical History History of cardiac catheterization Family History Sister Diabetes Kidney problem Father Diabetes Mother Diabetes Brother Diabetes Kidney problem Heart problem Brother Diabetes Lymphoma Other Family history of arthritis Social History Household Members: Spouse Housing: Apartment Alcohol intake: former Patient Tobacco Use Status: Former Tobacco user service: No Current occupational status: disabled Review of Systems Const Reports fatigue and Reports weakness Musc Reports stiffness Neuro Reports weakness Psych Reports abnormal sleep pattern, Reports anxiety and Reports depression Endo Reports fatigue Physical Exam Vital Signs: Last Vital Signs Temp 97 F 10/08/23 10:04 Pulse 90 10/08/23 10:04 BP 110/80 10/08/23 10:04 Pulse Ox 94 10/08/23 10:04 Oxygen Delivery Method Room Air 10/08/23 10:04 BMI result Body Mass Index 29.5 Const General: cooperative, healthy appearing and comfortable Nutritional Appearance: obese Orientation/consciousness: patient oriented x3 Limitations: no limitations HEENT Head: Yes normocephalic and Yes atraumatic Mouth: moist mucous membranes Resp Effort & Inspection: normal respiratory effort and able to speak in complete sentences GI Inspection: No distended Palpation (GI): Soft to palpation and nontender Neuro General: patient oriented x3 Extrem Other: Proximal muscle strength 5/5 grossly in all 4 extremities Normal bilateral acid operator strength No myositis skin rashes no heliotrope rash, Shawl sign, V-neck sign, holster sign) no water treatment plant mechanic's hands Normal nailfold capillaroscopy Multiple fibromyalgia tender points Bilateral knee pain with full flexion Results Reviewed Results Reviewed: CPK 2019 284 (<174) Assessment & Plan Assessment & Plan (1) Elevated CPK: Code(s): R74.8 - Abnormal levels of other serum enzymes Plan: This is a 58-year-old male who presents for evaluation of elevated CPK . He has history of HIV on HAART. Patient has grossly normal proximal muscle strength on exam on all 4 extremities. There are no myositis skin rashes. I do not see any evidence of autoimmune myositis. (2) Bilateral primary osteoarthritis of knee: Code(s): M17.0 - Bilateral primary osteoarthritis of knee Plan: Discussed different treatment options for knee arthritis including physical therapy, Tylenol, Voltaren gel and steroid injections. Patient stated that he see the steroid injection years ago and it caused knee swelling the next day. Follow-up as needed Plan I spent 27 minutes reviewing patient's chart, evaluating patient, counseling patient and documenting in the chart Coding Level of Care Code Est Pt Level 4 (13458) Diagnoses Elevated CPK R74.8 Bilateral primary osteoarthritis of knee M17.0
== END 2023-10-08 10:29 | disposition home or self-care (01) ==
PROVIDERS: PCP Family Medicine; Visit Provider Student in an Organized Health Care Education/Training Program
DX: R74.8 Abnormal levels of other serum enzymes (principal); M17.0 Bilateral primary osteoarthritis of knee
CPT/HCPCS: 99214

== ENCOUNTER → 2023-10-08 09:57 | Outpatient (BNVA) | payer MEDICAID, SELFPAY | PROVIDERS: PCP Family Medicine; Visit Provider Student in an Organized Health Care Education/Training Program | DX: R74.8 Abnormal levels of other serum enzymes (principal); M17.0 Bilateral primary osteoarthritis of knee | CPT/HCPCS: 99212 ==

== ENCOUNTER 2023-11-04 09:21 | Outpatient (REF) | payer MEDICAID, SELFPAY ==
[2023-11-04 11:28] LABS: MANUAL DIFF FLAG NO
[2023-11-04 11:32] LABS: Basophils Percent Auto 0.5 % (0-2); Eosinophils Absolute Auto 0.1 X10*3/uL (0.0-0.4); Eosinophils Percent Auto 1.6 % (0-4); Hematocrit 45.6 % (42.0-52.0); Hemoglobin 14.5 g/dl (14.0-18.0); Imm Gran Abs Auto 0.01 X10*3/uL (0.00-0.03); Imm Gran Pct Auto 0.2 % (0.0-0.4); Lymphocytes Absolute Auto 1.6 X10*3/uL (1.2-4.9); Mean Corpuscular HGB Conc 31.8 g/dl (31.0-36.0); Mean Corpuscular Hemoglobin 30.7 pg (27.0-33.0); Mean Corpuscular Volume 96.6 fL (80.0-98.0); Mean Platelet Volume 9.3 fL (9.4-12.4); Monocytes Absolute Auto 0.4 X10*3/uL (0.1-1.2); Monocytes Percent Auto 6.6 % (2-11); Neutrophils Absolute Auto 3.3 x10*3/uL (2.0-8.3); Neutrophils Percent Auto 61.1 % (45-73); Platelet Count 174 X10*3/uL (160-400); Red Blood Count 4.72 X10*6/uL (4.60-5.80); Red Cell Distribution Width 13.1 % (11.0-16.0); White Blood Count 5.5 X10*3/uL (4.8-10.8)
[2023-11-04 11:43] LABS: Alanine Aminotransferase 37 U/L (0-40); Albumin Level 4.5 g/dL (3.5-5.0); Alkaline Phosphatase 89 U/L (39-117); Anion Gap 15 (12-20); Aspartate Amino Transferase 35 U/L (5-37); Bilirubin Total 0.6 mg/dL (0.0-1.0); Blood Urea Nitrogen 16 mg/dL (9-16); Calcium 10.5 mg/dL (8.4-10.2); Carbon Dioxide 26 mmol/L (22-29); Chloride 101 mmol/L (96-108); Estimated Glomerular Filt Rate > 60; Glucose Random 126 mg/dL (60-115); Potassium 4.2 mmol/L (3.3-5.1); Sodium 138 mmol/L (135-145); Total Protein 8.2 g/dL (6.5-8.0)
[2023-11-04 12:00] LABS: ~HepC Num1 0.14 S/CO (0.00-0.79); ~Hepatitis C Antibody Nonreactive (Nonreactive)
[2023-11-06 15:49] LABS: Absolute CD3 Count 1014 cells/uL (840-3060); Absolute CD4 Count 456 cells/uL (490-1740); Absolute CD8 Count 508 cells/uL (180-1170); Absolute Lymphocytes 1469 cells/uL (850-3900); Percent CD3 Cells 69 % (57-85); Percent CD4 Cells 31 % (30-61); Percent CD8 Cells 35 % (12-42)
[2023-11-07 09:33] LABS: TS Negative Control Passed; TS Panel A 0; TS Panel B 1; TS Positive Control Passed; TSpotTB Negative (Negative)
[2023-11-08 14:47] LABS: HIV RNA PCR Qn Copies NOT DETECTED copies/mL (NOT DETECTED); HIV RNA PCR Qn Log Copies NOT DETECTED (NOT DETECTED)
[2023-11-08 18:23] LABS: RPR Rapid Plasma Reagin NON-REACTIVE (NON-REACTIVE)
== END 2023-11-04 09:22 | disposition home or self-care (01) ==
LOC: HO.HHCL 09:21
PROVIDERS: Visit Provider Internal Medicine
DX: B20 Human immunodeficiency virus [HIV] disease (principal)
CPT/HCPCS: 36415; 80053; 85025; 86359; 86360; 86481; 86592; 86803; 87536

== ENCOUNTER 2023-11-05 10:48 | Outpatient (REF) | payer MEDICAID, SELFPAY | END 2023-11-05 10:49 | disposition home or self-care (01) | LOC: HO.US 10:48 | PROVIDERS: PCP Family Medicine; Visit Provider Nurse Practitioner Family | DX: N20.0 Calculus of kidney (principal); N28.1 Cyst of kidney, acquired | CPT/HCPCS: 76775 ==

== ENCOUNTER 2024-05-31 10:36 | Outpatient (REF) | payer MEDICAID, SELFPAY ==
[2024-05-31 11:25] LABS: MANUAL DIFF FLAG NO
[2024-05-31 11:36] LABS: Basophils Percent Auto 0.6 % (0-2); Eosinophils Absolute Auto 0.1 X10*3/uL (0.0-0.4); Eosinophils Percent Auto 1.8 % (0-4); Hematocrit 41.7 % (42.0-52.0); Hemoglobin 13.4 g/dl (14.0-18.0); Imm Gran Abs Auto 0.06 X10*3/uL (0.00-0.03); Imm Gran Pct Auto 1.2 % (0.0-0.4); Lymphocytes Absolute Auto 1.8 X10*3/uL (1.2-4.9); Lymphocytes Percent Auto 36.8 % (20-40); Mean Corpuscular HGB Conc 32.1 g/dl (31.0-36.0); Mean Corpuscular Hemoglobin 32.1 pg (27.0-33.0); Mean Corpuscular Volume 99.8 fL (80.0-98.0); Mean Platelet Volume 9.4 fL (9.4-12.4); Monocytes Absolute Auto 0.3 X10*3/uL (0.1-1.2); Monocytes Percent Auto 6.1 % (2-11); Neutrophils Absolute Auto 2.6 x10*3/uL (2.0-8.3); Neutrophils Percent Auto 53.5 % (45-73); Platelet Count 161 X10*3/uL (160-400); Red Blood Count 4.18 X10*6/uL (4.60-5.80); Red Cell Distribution Width 12.3 % (11.0-16.0); White Blood Count 4.9 X10*3/uL (4.8-10.8)
[2024-05-31 12:32] LABS: Valproate 34.9 mcg/mL (50.0-100.0)
[2024-05-31 12:36] LABS: Alanine Aminotransferase 37 U/L (0-40); Albumin Level 4.4 g/dL (3.5-5.0); Alkaline Phosphatase 94 U/L (39-117); Anion Gap 13 (12-20); Aspartate Amino Transferase 26 U/L (5-37); Bilirubin Total 0.7 mg/dL (0.0-1.0); Blood Urea Nitrogen 19 mg/dL (9-16); Calcium 9.8 mg/dL (8.4-10.2); Carbon Dioxide 27 mmol/L (22-29); Chloride 103 mmol/L (96-108); Cholesterol 100 mg/dL (<200); Estimated Glomerular Filt Rate > 60; Glucose Random 138 mg/dL (60-115); HDL Cholesterol 25 mg/dL (>40); Potassium 4.1 mmol/L (3.3-5.1); Sodium 139 mmol/L (135-145); Total Protein 7.7 g/dL (6.5-8.0); Triglycerides 471 mg/dL (<150)
[2024-05-31 13:05] LABS: Reflex LDLD? Yes
[2024-06-01 13:58] LABS: LDL Cholesterol Direct 30 mg/dL (<100)
[2024-06-02 15:13] LABS: HIV RNA PCR Qn Copies NOT DETECTED copies/mL (NOT DETECTED); HIV RNA PCR Qn Log Copies NOT DETECTED (NOT DETECTED)
[2024-06-04 15:49] LABS: Absolute CD3 Count 1250 cells/uL (840-3060); Absolute CD4 Count 610 cells/uL (490-1740); Absolute CD8 Count 554 cells/uL (180-1170); Absolute Lymphocytes 1779 cells/uL (850-3900); Percent CD3 Cells 70 % (57-85); Percent CD4 Cells 34 % (30-61); Percent CD8 Cells 31 % (12-42)
== END 2024-05-31 10:37 | disposition home or self-care (01) ==
LOC: HO.HHCL 10:36
PROVIDERS: Registered Nurse; Visit Provider Internal Medicine
DX: Z21 Asymptomatic human immunodeficiency virus [HIV] infection status (principal)
CPT/HCPCS: 36415; 80053; 80061; 80164; 83721; 85025; 86359; 86360; 87536

== ENCOUNTER 2024-07-27 12:42 | Outpatient (AMB) | payer MEDICAID, SELFPAY ==
--- NOTE | 2024-07-27 13:06 | A.OFFVIS_ITS ---
Intake Visit Reasons: Follow up/U/S Intake Note: Patient presents today for follow up on: nephrolithiasis and ultrasound results Imaging Completed: 11/05/23 Urology Medications: Vitamin B6 Blood Thinner: none Yard Attendant Required: Yes Yard Attendant Name: SANDY BRAN-CMAngela Accompanied by: Unknown Allergies iodine [IODINE] Allergy (Unknown, Verified 07/27/24 13:59) DIFFICULTY BREATHING SEAFOOD Allergy (Unknown, Uncoded 07/27/24 13:49) ANAPHYLAXIS Medication List - Last Reconciled 07/27/24 by NEY Lee-MAUREEN alcohol swabs (Alcohol Prep Pads) 1 pad topical BID allopurinol 1 tab PO QAM aspirin 1 tab PO QAM atorvastatin 1 tab PO QPM paonnnjhl-pinczddt-rtwvqcu ala 50-200-25 mg (Biktarvy) 1 tab PO BEDTIME blood sugar diagnostic (FreeStyle Lite Strips) carvedilol 1 tab PO BID cholecalciferol (vitamin D3) 25 mcg PO QAM clotrimazole 1% 1 appl topical DAILY divalproex ER 250 mg PO QAM divalproex ER 500 mg PO BEDTIME empagliflozin (Jardiance) 25 mg PO QAM gabapentin 1 cap PO TID lancets (TRUEplus Lancets) lisinopril 1 tab PO QAM omega-3 fatty acids-fish oil 340-1,000 mg (Fish Oil) 2 caps PO BID omeprazole 20 mg PO DAILY prazosin 4 mg PO BEDTIME pyridoxine (vitamin B6) 100 mg PO DAILY 90 days sitagliptin phosphate (Januvia) 100 mg PO QAM trazodone 300 mg PO BEDTIME HPI Comments Details: Radhames is a very pleasant [place]er-speaking male patient of Dr. Oliveros who was accompanied by his at today's visit. He has a past medical history of anemia of chronic diseases, dyslipidemia, hypertension, GERD, HIV on HAART, peripheral polyneuropathy, and treated lymphoma. He presents to the office today for a follow up of his renal cyst and nephrolithiasis. In discussion with the patient today reports since his last office visit here approximately 1 year ago he has been doing and feeling well. He denies any bothersome urinary issues or concerns. Recent renal imaging results reviewed with the patient and his today. Bilateral kidneys with no calculi or hydronephrosis. Multiple bilateral benign Bosniak 1 cyst that require no additional follow-up per radiology report. In review of patient's chart it appears PSA was ordered however never performed. We discussed importance in doing so. He otherwise denies any bothersome urinary issues or concerns. When asked he denies urinary urgency, urinary frequency, incontinence, nocturia, hematuria, dysuria, foul smelling urine, changes to urinary stream, flank pain, fever, and or chills. He is happy with his current voiding parameters. In office urinalysis results reviewed with the patient his today. He otherwise offers no issues or concerns at this time. DOROTHY offered however declined. [facility] Medical History Anemia of chronic disease GERD (gastroesophageal reflux disease) Dyslipidemia Tubular adenoma of colon Essential hypertension Peripheral polyneuropathy HIV (human immunodeficiency virus infection) Surgical History History of cardiac catheterization Family History Sister Diabetes Kidney problem Father Diabetes Mother Diabetes Brother Diabetes Kidney problem Heart problem Brother Diabetes Lymphoma Other Family history of arthritis Social History Household Members: Spouse Housing: Apartment Alcohol intake: former Patient Tobacco Use Status: Former Tobacco user service: No Current occupational status: disabled Review of Systems Const Reports as per HPI Eyes Reports no additional complaints ENT Reports no additional complaints Card Reports as per HPI Resp Reports no additional complaints GI Reports as per HPI Reports as per HPI Musc Reports as per HPI Neuro Reports as per HPI Psych Reports no additional complaints Endo Reports no additional complaints Misael/Lymph Details: Patient with a past medical history of Hodgkin's disease. Physical Exam Const General: cooperative, healthy appearing, comfortable, no acute distress, well developed, alert and awake Orientation/consciousness: patient oriented x3 Limitations: no limitations HEENT Head: Yes normal to inspection, Yes normocephalic and Yes atraumatic Ears: hearing grossly normal bilaterally Eyes General: appearance normal, both eyes and all related structures Neck Neck: Yes normal visual inspection and Yes trachea midline Chest Chest palpation & inspection: normal inspection of the chest Resp Effort & Inspection: normal respiratory effort and able to speak in complete sentences Cardio Rate: regular rate GI Inspection: Yes normal to inspection General: Yes no CVA tenderness Back/Spine/Pelvis Back: no CVA tenderness Skin General skin exam: no rashes or lesions noted Neuro General: patient oriented x3 Extrem General: Yes normal to inspection Psych Appearance: grossly normal and well kempt Mental Status: mental status grossly normal Speech and movement: Normal speech and movement present and Clear speech present Affect: normal affect Attitude: cooperative Thought process: Normal thought process present Thought content: Normal thought content present Insight: Good insight present (Psych) Judgement: Good judgement present (Psych) Results AMB Urinalysis, Automated UA Leukoctes 0 Alex/uL Last Edit by [employer] on 07/27/24 13:50 UA Nitrite Last Edit by [employer] on 07/27/24 13:50 UA Urobilinogen 0.2 mg/dL Last Edit by [employer] on 07/27/24 13:50 UA Protein 0 mg/dL Last Edit by [employer] on 07/27/24 13:50 UA pH 5.5 Last Edit by [employer] on 07/27/24 13:50 UA Blood 0 Eduardo/uL Last Edit by [employer] on 07/27/24 13:50 UA Specific [place] 1.020 Last Edit by [employer] on 07/27/24 13:50 UA Ketone Last Edit by [employer] on 07/27/24 13:50 UA Bilirubin 0 mg/dL Last Edit by [employer] on 07/27/24 13:50 UA Glucose 1000 mg/dL Last Edit by [employer] on 07/27/24 13:50 Results Reviewed Results Reviewed: Laboratory Last Values Urine pH (Auto) 5.5 07/27/24 13:49 Specific [place] (Auto) 1.020 07/27/24 13:49 Urine Protein (Auto) 0 mg/dL 07/27/24 13:49 Glucose (UA)(Auto) 1000 mg/dL 07/27/24 13:49 Urine Blood (Auto) 0 Eduardo/uL 07/27/24 13:49 Urine Bilirubin (Auto) 0 mg/dL 07/27/24 13:49 Urine Urobilinogen (Auto) 0.2 mg/dL 07/27/24 13:49 Leukocyte Esterase (Auto) 0 Alex/uL 07/27/24 13:49 Date of Service: 11/05/23 EXAMINATION: US RENAL, BILATERAL FINDINGS: RIGHT KIDNEY: 13.8 x 5.9 x 7.0 cm (SAG x AP x TRV). The kidney is normal in size, contour, and echogenicity. Renal cortical thickness is normal. No renal calculi or hydronephrosis. A benign lower pole 0.8 cm Bosniak class I renal cyst is noted which requires no additional imaging or follow up. No solid renal masses are seen. LEFT KIDNEY: 14.1 x 5.9 x 6.3 cm (SAG x AP x TRV). The kidney is normal in size, contour, and echogenicity. Renal cortical thickness is normal. No renal calculi or hydronephrosis. Multiple benign Bosniak class I renal cysts are noted, the largest measuring 0.9 cm which require no additional imaging or follow-up. No solid renal masses are seen. Incidental note is made of splenomegaly measuring 13.8 cm. IMPRESSION: 1. No renal calculi are seen. 2. Bilateral benign Bosniak class I renal cysts which require no additional imaging or follow up. 3. Splenomegaly. Assessment & Plan Assessment & Plan (1) Nephrolithiasis: Code(s): N20.0 - Calculus of kidney Category: Medical (2) Renal cyst: Code(s): N28.1 - Cyst of kidney, acquired Category: Medical Plan In office urinalysis results reviewed with the patient today; as noted above. Most recent renal imaging results reviewed with the patient today; as noted above. Patient currently denies any bothersome urinary issues or concerns. He is happy with his current voiding parameters. Discussed and educated on the importance of obtaining PSA for further assessment evaluation. DOROTHY offered however deferred. Will obtain renal ultrasound in 1 year. Follow-up in 1 year with imaging and lab to be completed prior; or sooner with any issues, concerns, and or questions. Orders: Orders US renal BI 1 Year N20.0 - Calculus of kidney, N28.1 - Cyst of kidney, acquired AMB Urinalysis Automated Today Z13.9 - Encounter for screening, unspecified Prostate Specific Antigen 1 Year N40.0 - Benign prostatic hyperplasia without lower urinary tract symptoms Patient Instructions: The patient had an opportunity to ask questions regarding the treatment plan. All questions were answered. Physical exam, labs, and imaging were discussed and reviewed in detail. As well as risks, benefits, and discussion of treatment choices. No major barriers to understanding were identified. The patient expressed understanding and agreement with the above treatment plan. The patient was made aware they should contact our office by phone for worsening of their current condition, the appearance of new symptoms, or with any questions or concerns. Compliance is encouraged with any medications and follow up testing that is ordered. It is a privilege to be allowed the opportunity to participate in? your urological care.? Again, if you have any questions or concerns If you have any questions or concerns please do not hesitate to contact me. The office is [phone]. This note is constructed using voice recognition software. While every effort has been made to ensure accuracy network support specialist errors may have been included. Yours sincerely, VERONICA Lee Coding Level of Care Code Est Pt Level 3 (37670) Complex EM visit Add On G2211 Diagnoses Nephrolithiasis N20.0 Renal cyst N28.1
== END 2024-07-27 13:55 | disposition home or self-care (01) ==
PROVIDERS: PCP Family Medicine; Visit Provider Nurse Practitioner Family
DX: N20.0 Calculus of kidney (principal); N28.1 Cyst of kidney, acquired; Z13.9 Encounter for screening, unspecified
CPT/HCPCS: 99213

== ENCOUNTER → 2024-07-27 12:42 | Outpatient (BNVA) | payer MEDICAID, SELFPAY | PROVIDERS: PCP Family Medicine; Visit Provider Nurse Practitioner Family | DX: N20.0 Calculus of kidney (principal); N28.1 Cyst of kidney, acquired | CPT/HCPCS: 81003; 99212 ==

== ENCOUNTER 2024-10-31 08:10 | Outpatient (REF) | payer MEDICAID, SELFPAY ==
--- OUTSIDE RECORDS SUMMARY | 2024-10-31 08:13 | XMS_ITS ---
Author Organization [facility] Address [address] [place] [address] Support Name Relationship Address Phone REAZ HOLM Emergency Contact [address] [facility] [address] [place], [place] [id number] PABLO GONZALEZ Guarantor Unknown [phone] Care Team Providers Care Seat Scooper Machine Name Role Phone Domo ESPINAL, Renetta Primary Care Provider UnavailRodríguez Garcia Jr [phone] GRACIE ANAYA M.D. Unavailable REASON FOR VISIT conf appt Encounters Encounter Location Date Provider Diagnosis [facility] [address] [place] [address] 07/20/2023 Rodríguez Shah Jr PLAN OF TREATMENT No Information
--- OUTSIDE RECORDS SUMMARY | 2024-10-31 08:13 | XMS_ITS | Patient Health Record ---
Author Organization [facility] Address [address] [place] [address] Support Name Relationship Address Phone REZA HOLM Emergency Contact [address] [facility] [address] [place], [place] [id number] PABLO GONZALEZ Guarantor Unknown Care Team Providers Care Projection Printer Name Role Phone Domo ESPINAL, Renetta Primary Care Provider UnavailRodríguez Garcia Jr Unavailable [phone] GRACIE ANAYA M.D. Unavailable Unavailable ALLERGIES Allergen (clinical drug ingredient) Drug/Non Drug Allergy documented on EMR Reaction Allergy Type Onset Date Status Iodine Unknown Drug Allergy Active REASON FOR REFERRAL No Information MEDICATIONS Medication SIG (Take, Route, Frequency, Duration) Notes Start Date End Date Status metFORMIN HCl ER Act sayra Ranitidine HCl 300 MG 1 capsule at bedti me Orally Once a day for 30 days 11/22/2014 Active Zofran 4 MG/5ML 10 ml Orally Once a day Active Lisinopril 5 MG 1 tablet Orally Once a day Active Loratadine 10 MG 1 tablet Orally Once a day Active Ondansetron Active Aspir-81 81 MG 1 tablet Orally Once a day Active Dexamethasone Active Fish Oil 1000 MG 1 capsule Orally Onc e a day Active Claritin Active Complera 200-25-300 MG 1 tablet with a m eal Orally Once a day Active Ferrous Sulfate Acti ve Albuterol Sulfate (2.5 MG/3ML) 0.083% 3 ml Inhalation Three times a day Active Divalproex Sodium Ac tive ProAir HFA 108 (90 Base) MCG/ACT 2 puffs as needed Inhalation every 4 hrs Active traZODone HCl Active Epzicom Active SOCIAL HISTORY Sex Assigned At : Social History Observation Description Sex Assigned At Unknown PROBLEMS Problem Type ICD Code Onset Dates Problem Status W/U Status Risk SNOMED Code Notes Problem Gastro-esophagea l reflux disease without esophagitis (K21.9) Active confirmed [id number] PLAN OF TREATMENT Pending Test Test Name Order Date XR GI SERIES 11/22/2014 Insurance Providers Payer Name Payer Address Payer Phone Subscriber Number Group Number Insured Name Patient Relationship to Insured Coverage Start Date Coverage End Date MEDICAID OF [employer] [address] [place] [phone] [id number] PABLO MÉNDEZ Self - patient is the insured MEDICAL (GENERAL) HISTORY Medical History History ICD Code asthma esophageal reflux human immunodeficiency virus (HIV), posi tive hypertension Denies CVA,renal disease [place] 2008 glucose intolerance Surgical History Surgery Date(Month/Year) port for chemo
[2024-10-31 11:43] LABS: Creatinine Urine 96.48 mg/dL; Microalbum/Creatinine Ratio Ur 34.2 ug/mg cr (<30)
[2024-10-31 12:26] LABS: Prostate Specific Antigen 0.28 ng/mL (<0.05-4.0)
[2024-10-31 12:29] LABS: Vitamin B12 426 pg/mL (200-900)
== END 2024-10-31 08:11 | disposition home or self-care (01) ==
LOC: HO.HHCL 08:10
PROVIDERS: Family Medicine; Visit Provider Nurse Practitioner Family
DX: N40.0 Benign prostatic hyperplasia without lower urinary tract symptoms (principal); E11.65 Type 2 diabetes mellitus with hyperglycemia
CPT/HCPCS: 36415; 82043; 82570; 82607; 84153

== ENCOUNTER 2024-11-24 11:35 | Outpatient (REF) | payer MEDICAID, SELFPAY ==
[2024-11-24 13:38] LABS: MANUAL DIFF FLAG NO
--- OUTSIDE RECORDS SUMMARY | 2024-11-24 13:49 | XMS_ITS ---
Author Organization [facility] Address [address] [place] [address] Support Name Relationship Address Phone REZA HOLM Emergency Contact [address] [facility] [address] [place], [place] [id number] PABLO GONZALEZ Guarantor Unknown Care Team Providers Care Metal Trades Instructor Name Role Phone Domo ESPINAL, Renetta Primary Care Provider UnavailRodríguez Garcia Jr GRACIE ANAYA M.D. Unavailable REASON FOR VISIT conf appt Encounters Encounter Location Date Provider Diagnosis [facility] [address] [place] [address] 07/20/2023 Rodríguez Shah Jr PLAN OF TREATMENT No Information
--- OUTSIDE RECORDS SUMMARY | 2024-11-24 13:49 | XMS_ITS | Patient Health Record ---
Author Organization [facility] Address [address] [place] [address] Support Name Relationship Address Phone REZA HOLM Emergency Contact [address] [facility] [address] [place], [place] [id number] PABLO GONZALEZ Guarantor Unknown [phone] Care Team Providers Care Wedger And Gluer Name Role Phone Domo ESPINAL, Renetta Primary Care Provider UnavailRodríguez Garcia Jr Unavailable GRACIE ANAYA M.D. Unavailable Unavailable ALLERGIES Allergen [...] reflux disease without esophagitis (K21.9) Active confirmed [id number] PLAN OF TREATMENT Pending Test Test Name Order Date XR GI SERIES 11/22/2014 Insurance Providers Payer Name Payer Address Payer Phone Subscriber Number Group Number Insured Name Patient Relationship to Insured Coverage Start Date Coverage End Date MEDICAID OF [employer] [address] [place] [id number] [id number] PABLO MÉNDEZ Self - patient is the insured MEDICAL (GENERAL) HISTORY Medical History History ICD Code asthma esophageal reflux human immunodeficiency virus (HIV), posi tive hypertension Denies CVA,renal disease [place] 2008 glucose intolerance Surgical History Surgery Date(Month/Year) port for chemo
--- OUTSIDE RECORDS SUMMARY | 2024-11-24 13:49 | XMS_ITS ---
Author Organization [facility] Address [address] [place] [address] Support Name Relationship Address Phone REZA HOLM Emergency Contact [address] [facility] [address] [place], [place] [id number] PABLO GONZALEZ Guarantor Unknown [phone] Care Team Providers Care Rickshaw Driver Name Role Phone Domo ESPINAL, Renetta Primary Care Provider UnavailRodríguez Garcia Jr GRACIE ANAYA M.D. Unavailable REASON FOR VISIT Patient presents today for a FATTY LIVER Encounters Encounter Location Date Provider Diagnosis [facility] [address] [place] [address] 07/22/2023 Rodríguez Shah Jr PLAN OF TREATMENT No Information
[2024-11-24 13:56] LABS: Basophils Percent Auto 0.6 % (0-2); Eosinophils Absolute Auto 0.1 X10*3/uL (0.0-0.4); Eosinophils Percent Auto 1.7 % (0-4); Hemoglobin 14.6 g/dl (14.0-18.0); Imm Gran Abs Auto 0.02 X10*3/uL (0.00-0.03); Imm Gran Pct Auto 0.4 % (0.0-0.4); Lymphocytes Percent Auto 37.5 % (20-40); Mean Corpuscular HGB Conc 33.2 g/dl (31.0-36.0); Mean Corpuscular Hemoglobin 32.6 pg (27.0-33.0); Mean Corpuscular Volume 98.2 fL (80.0-98.0); Mean Platelet Volume 9.7 fL (9.4-12.4); Monocytes Absolute Auto 0.3 X10*3/uL (0.1-1.2); Monocytes Percent Auto 6.1 % (2-11); Neutrophils Absolute Auto 2.8 x10*3/uL (2.0-8.3); Neutrophils Percent Auto 53.7 % (45-73); Platelet Count 170 X10*3/uL (160-400); Red Blood Count 4.48 X10*6/uL (4.60-5.80); Red Cell Distribution Width 12.2 % (11.0-16.0); White Blood Count 5.2 X10*3/uL (4.8-10.8)
[2024-11-24 14:16] LABS: Prostate Specific Antigen 0.27 ng/mL (<0.05-4.0)
[2024-11-24 15:52] LABS: Albumin Level 4.7 g/dL (3.5-5.0); Alkaline Phosphatase 94 U/L (39-117); Anion Gap 17 (12-20); Aspartate Amino Transferase 47 U/L (5-37); Bilirubin Total 0.6 mg/dL (0.0-1.0); Blood Urea Nitrogen 17 mg/dL (9-16); Carbon Dioxide 25 mmol/L (22-29); Chloride 104 mmol/L (96-108); Estimated Glomerular Filt Rate > 60; Glucose Random 170 mg/dL (60-115); Potassium 4.2 mmol/L (3.3-5.1); Sodium 142 mmol/L (135-145); Total Protein 8.4 g/dL (6.5-8.0)
[2024-11-24 16:13] LABS: Alanine Aminotransferase 54 U/L (0-40)
[2024-11-25 08:06] LABS: Syphilis Screen Reactive (Nonreactive)
[2024-11-25 08:21] LABS: HBS Num1 0.16 mIU/mL (0-7.99); HBc Num1 0.13 S/CO (0.00-0.79); HBsAGNum1 0.35 S/CO (0.00-0.99); Hepatitis B Core Antibody Nonreactive (Nonreactive); Hepatitis B Surface Antigen Negative (Negative); ~HepC Num1 0.11 S/CO (0.00-0.79); ~Hepatitis B Surface Antibody NONREACTIVE (Nonreactive); ~Hepatitis C Antibody Nonreactive (Nonreactive)
[2024-11-25 08:23] LABS: Hepatitis A Antibody IgG REACTIVE (Nonreactive); ~Hepatitis A Antibody IgG 10.89 S/CO (0.00-0.99)
[2024-11-27 19:39] LABS: TS Negative Control Passed; TS Panel A 0; TS Panel B 0; TS Positive Control Passed; TSpotTB Negative (Negative)
[2024-11-28 15:52] LABS: Absolute CD3 Count 1312 cells/uL (840-3060); Absolute CD4 Count 668 cells/uL (490-1740); Absolute CD8 Count 578 cells/uL (180-1170); Absolute Lymphocytes 1969 cells/uL (850-3900); CD4 CD8 Ratio 1.15 (0.86-5.00); Percent CD3 Cells 67 % (57-85); Percent CD4 Cells 34 % (30-61); Percent CD8 Cells 29 % (12-42)
[2024-11-28 18:04] LABS: HIV RNA PCR Qn Copies 75 copies/mL (NOT DETECTED); HIV RNA PCR Qn Log Copies 1.88 (NOT DETECTED)
[2024-11-30 14:43] LABS: RPR Quantitative Non-Reactive (Nonreactive); T.Pallidum Particle Agg Test Reactive (Nonreactive)
== END 2024-11-24 11:36 | disposition home or self-care (01) ==
LOC: HO.HHCL 11:35
PROVIDERS: Visit Provider Internal Medicine
DX: Z21 Asymptomatic human immunodeficiency virus [HIV] infection status (principal); Z11.1 Encounter for screening for respiratory tuberculosis; Z11.59 Encounter for screening for other viral diseases; Z11.3 Encounter for screening for infections with a predominantly sexual mode of transmission
CPT/HCPCS: 36415; 80053; 84153; 85025; 86359; 86360; 86481; 86592; 86704; 86706; 86708; 86780; 86803; 87340; 87536

== ENCOUNTER 2024-12-01 09:00 | Outpatient (REF) | payer MEDICAID, SELFPAY ==
[2024-12-06 12:49] LABS: Testosterone, Total 98 ng/dL (250-1100)
== END 2024-12-01 09:01 | disposition home or self-care (01) ==
LOC: HO.HHCL 09:00
PROVIDERS: Visit Provider Internal Medicine
DX: Z21 Asymptomatic human immunodeficiency virus [HIV] infection status (principal)
CPT/HCPCS: 36415; 84403

== ENCOUNTER 2025-02-14 09:16 | Outpatient (REF) | payer MEDICAID, SELFPAY ==
--- OUTSIDE RECORDS SUMMARY | 2025-02-14 10:07 | XMS_ITS | Patient Health Record ---
Author Organization [facility] Address [address] [place] [address] Support Name Relationship Address Phone REZA HOLM Emergency Contact [address] [facility] [address] [place], [place] [id number] PABLO GONZALEZ Guarantor Unknown [phone] Care Team Providers Care Furniture Servicer Name Role Phone Domo ESPINAL, Renetta Primary Care Provider UnavailRodríguez Garcia Jr Unavailable [phone] GRACIE ANAYA M.D. Unavailable Unavailable Allergies Allergen (clinical drug ingredient) Drug/Non Drug Allergy documented on EMR Reaction Allergy Type Onset Date Status Iodine Unknown Drug Allergy Active Reason For Referral No Information Medications Medication SIG (Take, Route, Frequency, Duration) Notes [...] hrs Active traZODone HCl Active Epzicom Active Problems Problem Type SNOMED Code ICD Code Onset Dates Problem Status W/U Status Risk Notes Problem [id number] Gastro-esophagea l reflux disease without esophagitis (K21.9) Active confirmed Plan Of Treatment Pending Test Test Name Order Date XR GI SERIES 11/22/2014 Next Appt Details Provider Name:Rodríguez Placido villegas Jr, 04/30/2025 11:10:00 AM, [address], [address], [place], [address], Insurance Providers Payer Name Payer Address Payer Phone Subscriber Number Group Number Insured Name Patient Relationship to Insured Coverage Start Date Coverage End Date MEDICAID OF [employer] [address] [place] [phone] [id number] PABLO MÉNDEZ Self - patient is the insured Medical (General) History Medical History History ICD Code asthma esophageal reflux human immunodeficiency virus (HIV), posi tive hypertension Denies CVA,renal disease [place] 2008 glucose intolerance Surgical History Surgery Date(Month/Year) port for chemo
[2025-02-14 11:19] LABS: MANUAL DIFF FLAG NO
[2025-02-14 11:31] LABS: B Type Natriuretic Peptide 10 pg/mL (<100)
[2025-02-14 11:32] LABS: Basophils Percent Auto 0.7 % (0-2); Eosinophils Absolute Auto 0.1 X10*3/uL (0.0-0.4); Eosinophils Percent Auto 2.4 % (0-4); Hematocrit 44.6 % (42.0-52.0); Hemoglobin 14.5 g/dl (14.0-18.0); INTERNATIONAL NORM RATIO 0.9 (0.9-1.1); Imm Gran Abs Auto 0.02 X10*3/uL (0.00-0.03); Imm Gran Pct Auto 0.4 % (0.0-0.4); Lymphocytes Absolute Auto 1.7 X10*3/uL (1.2-4.9); Lymphocytes Percent Auto 37.8 % (20-40); Mean Corpuscular HGB Conc 32.5 g/dl (31.0-36.0); Mean Corpuscular Volume 98.5 fL (80.0-98.0); Mean Platelet Volume 9.8 fL (9.4-12.4); Monocytes Absolute Auto 0.3 X10*3/uL (0.1-1.2); Monocytes Percent Auto 7.3 % (2-11); Neutrophils Absolute Auto 2.3 x10*3/uL (2.0-8.3); Neutrophils Percent Auto 51.4 % (45-73); Platelet Count 144 X10*3/uL (160-400); Prothrombin Time 10.1 SEC (10.9-12.4); Red Blood Count 4.53 X10*6/uL (4.60-5.80); Red Cell Distribution Width 12.6 % (11.0-16.0); White Blood Count 4.6 X10*3/uL (4.8-10.8)
[2025-02-14 11:36] LABS: Anion Gap 16 (12-20); Blood Urea Nitrogen 13 mg/dL (9-16); Carbon Dioxide 24 mmol/L (22-29); Chloride 104 mmol/L (96-108); Potassium 4.2 mmol/L (3.3-5.1); Sodium 140 mmol/L (135-145)
[2025-02-14 11:37] LABS: Calcium 9.8 mg/dL (8.4-10.2); Estimated Glomerular Filt Rate > 60; Glucose Random 176 mg/dL (60-115)
== END 2025-02-14 09:17 | disposition home or self-care (01) ==
LOC: HO.HHCL 09:16
PROVIDERS: Visit Provider Internal Medicine Cardiovascular Disease
DX: R07.9 Chest pain, unspecified (principal); I25.10 Atherosclerotic heart disease of native coronary artery without angina pectoris; I10 Essential (primary) hypertension
CPT/HCPCS: 36415; 80048; 83880; 85025; 85610

== ENCOUNTER 2025-03-06 10:24 | Outpatient (REF) | payer MEDICAID, SELFPAY ==
--- NOTE | ~2025-03-06 | US_ITS ---
EXAMINATION: US ABDOMEN COMPLETE WITH LIVER ELASTOGRAPHY HISTORY: MASLD TECHNIQUE: Real-time grayscale ultrasound imaging of the abdomen was performed and images were reviewed. COMPARISON: Comparison is made with the prior examination dated 06/24/2022. FINDINGS: Liver: The right lobe of the liver measures 20.7 cm in size. The left lobe of the liver measures 15.7 cm in size. The liver demonstrates increased echotexture, consistent with steatosis. No focal mass or intrahepatic biliary ductal dilatation is identified. There is normal hepatopedal flow in the portal vein. Ultrasound elastography of the liver was performed with 10 separate measurements of the liver parenchyma with the patient in the supine position. Measurements were obtained approximately 2 cm below Sunday's capsule and perpendicular to the capsule. The Elastography measurements are limited due to inability of the patient to suspend respiration. The median shear wave velocity is 1.64 m/s. The interquartile range/median (IQR/median) is 0.20. Gallbladder and biliary tree: The gallbladder is unremarkable, without evidence of calculi, wall thickening, or pericholecystic fluid. There is no sonographic Vinson sign. The common bile duct is normal in caliber measuring 3 mm. Kidneys: The right kidney measures 13.4 cm in length and demonstrates a cyst in the interpolar region measuring 7 x 6 x 8 mm. The left kidney measures 14.0 cm in length and demonstrates a cyst at the lower pole measuring 11 x 8 x 9 mm. The kidneys are otherwise unremarkable, without evidence of solid masses, hydronephrosis, or calculi. Pancreas: The pancreatic head, neck, and body are unremarkable. The pancreatic tail is obscured by bowel gas. Spleen: The spleen is enlarged, measuring 14.4 cm in length. Abdominal aorta and inferior vena cava: The visualized portions of the abdominal aorta and inferior vena cava are normal in caliber. There is no free fluid in the abdomen. US/US abdomen comp w elastography IMPRESSION: Hepatosplenomegaly and hepatic steatosis. The median shear wave velocity in the liver is 1.64 m/s, corresponding to a median liver stiffness of 8.18 kPa. The IQR/median value is 0.20. This is indicative of a poor quality data set, and the estimated liver stiffness may be unreliable. In addition, elastography is limited due to inability of the patient to adequately suspend respiration. Findings are indicative of a low elastography value which rules out advanced chronic liver disease in asymptomatic patients. REFERENCE: Society of Radiologists in Ultrasound Liver Stiffness Thresholds (2020): LIVER STIFFNESS THRESHOLDS: *Shear wave velocity less than 1.3 m/s (Liver Stiffness equal or less than 5 kPa): High probability of being normal. *Shear wave velocity less than 1.7 m/s (Liver Stiffness less than 9 kPa): In the absence of other known clinical signs, rules out compensated advanced chronic liver disease. *Shear wave velocity between 1.7-2.1 m/s (Liver Stiffness 9-13 kPa): Suggestive of compensated advanced chronic liver disease but need further test for confirmation. *Shear wave velocity between 2.1-2.4 m/s (Liver Stiffness 13-17 kPa): Rules in compensated advanced chronic liver disease. *Shear wave velocity greater than 2.4 m/s (Liver Stiffness over 17 kPa): Suggestive of clinically significant portal hypertension. QUALITY OF DATA SET: *IQR/Median value equal or less that 0.15 implies a quality data set. *IQR/Median value over 0.15 implies a poor quality data set. SIGNIFICANT CHANGE FROM PRIOR EXAM: Significant change if liver stiffness measurement is 10% or greater from prior exam. OTHER CONSIDERATIONS: The stage of liver fibrosis may be overestimated in the setting of acute hepatitis, liver inflammation, elevated liver function tests, hepatic vascular congestion, obstructive cholestasis, non-fasting state, and infiltrative diseases such as amyloidosis and lymphoma. In some patients with NAFLD, the liver stiffness thresholds for compensated advanced chronic liver disease may be lower. In causes other than viral hepatitis and NAFLD, liver stiffness thresholds are not well established. Electronically signed by: Akbar Weber MD 03/06/2025 11:48 AM EDT
--- OUTSIDE RECORDS SUMMARY | 2025-03-06 11:54 | XMS_ITS | Patient Health Record ---
Author Organization [facility] Address [address] [place] [address] Support Name Relationship Address Phone REZA HOLM Emergency Contact [address] [facility] [address] [place], [place] [id number] PABLO GONZALEZ Guarantor Unknown Care Team Providers Care Pony Cylinder Press Operator Name Role Phone Domo ESPINAL, Renetta Primary Care Provider UnavailRodríguez Garcia Jr Unavailable GRACIE ANAYA M.D. Unavailable Unavailable Allergies Allergen [...] Problem Status W/U Status Risk Notes Problem [id number] Gastro-esophagea l reflux disease without esophagitis (K21.9) Active confirmed Plan Of Treatment Pending Test Test Name Order Date XR GI SERIES 11/22/2014 Next Appt Details Provider Name:Rodríguez Placido villegas Jr, 04/30/2025 11:00:00 AM, [address] [facility], [address], [place], [address], Insurance Providers Payer Name Payer Address Payer Phone Subscriber Number Group Number Insured Name Patient Relationship to Insured Coverage Start Date Coverage End Date MEDICAID OF [employer] [address] [place] [phone] [id number] PABLO MÉNDEZ Self - patient is the insured Medical (General) History Medical History History ICD Code asthma esophageal reflux human immunodeficiency virus (HIV), posi tive hypertension Denies CVA,renal disease [place] 2008 glucose intolerance Surgical History Surgery Date(Month/Year) port for chemo
== END 2025-03-06 10:25 | disposition home or self-care (01) ==
LOC: HO.US 10:24
PROVIDERS: PCP Family Medicine; Visit Provider Family Medicine
DX: K75.81 Nonalcoholic steatohepatitis (NASH) (principal)
CPT/HCPCS: 76700; 76981

== ENCOUNTER → 2025-03-06 10:26 | Outpatient (BNV) | payer MEDICAID, SELFPAY | PROVIDERS: PCP Family Medicine; Visit Provider Radiology Diagnostic Radiology | DX: K76.0 Fatty (change of) liver, not elsewhere classified (principal) | CPT/HCPCS: 76700; 76981 ==

== ENCOUNTER 2025-03-20 14:44 | Outpatient (AMB) | payer MEDICAID, SELFPAY ==
--- NOTE | 2025-03-20 15:22 | A.OFFVIS_ITS ---
Intake Visit Reasons: erectile dysfunction (new concern) Intake Note: Patient presents today for new concern of erectile dysfunction Urology Medications: Vitamin B6 Blood Thinner: none Basketball Commentator Required: Yes Basketball Commentator Name: Rupal Gonzalez Accompanied by: Unknown Allergies iodine [IODINE] Allergy (Unknown, Verified 03/20/25 15:55) DIFFICULTY BREATHING SEAFOOD Allergy (Unknown, Uncoded 03/20/25 15:55) ANAPHYLAXIS Medication List - Last Reconciled 03/20/25 by VERONICA Lee alcohol swabs (Alcohol Prep Pads) 1 pad topical BID allopurinol 1 tab PO QAM aspirin 1 tab PO QAM atorvastatin 1 tab PO QPM dqfuqkaul-kqmrdenc-eyjybqb ala 50-200-25 mg (Biktarvy) 1 tab PO BEDTIME blood sugar diagnostic (FreeStyle Lite Strips) carvedilol 1 tab PO BID cholecalciferol (vitamin D3) 25 mcg PO QAM divalproex ER 500 mg PO BEDTIME empagliflozin-metformin 5-1,000 mg ER (Synjardy XR) 1 tab PO DAILY gabapentin 1 cap PO TID lancets (TRUEplus Lancets) lisinopril 1 tab PO QAM omeprazole 20 mg PO DAILY prazosin 4 mg PO BEDTIME pyridoxine (vitamin B6) 100 mg PO DAILY 90 days sitagliptin phosphate (Januvia) 100 mg PO QAM tadalafil (Cialis) 5 mg PO DAILY 90 days trazodone 300 mg PO BEDTIME HPI Comments Details: Radhames is a very pleasant Dominican-speaking male patient of Dr. Oliveros who was accompanied by his at today's visit. He has a past medical history of anemia of chronic diseases, dyslipidemia, hypertension, GERD, HIV on HAART, peripheral polyneuropathy, and treated lymphoma. He presents to the office today for a follow up. In discussion with the patient today he reports having called the office to make a sooner appointment as he has been experiencing issues with maintaining his erections. He does have a previous history of renal cysts and nephrolithiasis in his under surveillance monitoring of these urological conditions. He reports over the last 3-6 months he has been having difficulty maintaining his erections. He does report he is able to obtain an erection. He otherwise denies any bothersome urinary issues or concerns. We discussed at length potential causes of ED and further treatment options and risks and benefits of these treatment options. In office urinalysis results reviewed with the patient today 3+ glucose otherwise within normal limits. In review of patient's chart it appears PSA and testosterone are as follows: PSA: 11/25 0.3 Testosterone: 11/25 98 We discussed correlation of hypogonadism and erectile dysfunction. We discussed obtaining further hormonal labs for further assessment evaluation. When asked he denies urinary urgency, urinary frequency, incontinence, nocturia, hematuria, dysuria, foul smelling urine, changes to urinary stream, flank pain, fever, and or chills. He is happy with his current voiding parameters. We discussed at length the importance of management and diabetes for improvement in ED as well as overall health and well-being. He also discusses following up with his PCP and will soon be undergoing sleep study. He otherwise offers no issues or concerns at this time. PENDING SALE TO [facility] Medical History Anemia of chronic disease GERD (gastroesophageal reflux disease) Dyslipidemia Tubular adenoma of colon Essential hypertension Peripheral polyneuropathy HIV (human immunodeficiency virus infection) Surgical History History of cardiac catheterization Family History Sister Diabetes Kidney problem Father Diabetes Mother Diabetes Brother Diabetes Kidney problem Heart problem Brother Diabetes Lymphoma Other Family history of arthritis Social History Household Members: Spouse Housing: Apartment Alcohol intake: former Patient Tobacco Use Status: Former Tobacco user service: No Current occupational status: disabled Review of Systems Const Reports as per HPI Eyes Reports no additional complaints ENT Reports no additional complaints Card Reports as per HPI Resp Reports no additional complaints GI Reports as per HPI Reports as per HPI Musc Reports as per HPI Neuro Reports as per HPI Psych Reports no additional complaints Endo Reports no additional complaints Misael/Lymph Details: Patient with a past medical history of Hodgkin's disease. Physical Exam Const General: cooperative, healthy appearing, comfortable, no acute distress, well developed, alert, awake and tired appearing Nutritional Appearance: overweight Orientation/consciousness: patient oriented x3 Limitations: no limitations HEENT Head: Yes normal to inspection, Yes normocephalic and Yes atraumatic Ears: hearing grossly normal bilaterally Eyes General: appearance normal, both eyes and all related structures Neck Neck: Yes normal visual inspection and Yes trachea midline Chest Chest palpation & inspection: normal inspection of the chest Resp Effort & Inspection: normal respiratory effort and able to speak in complete sentences Cardio Rate: regular rate GI Inspection: Yes normal to inspection General: Yes no CVA tenderness Back/Spine/Pelvis Back: no CVA tenderness Skin General skin exam: no rashes or lesions noted Neuro General: patient oriented x3 Extrem General: Yes normal to inspection Psych Appearance: grossly normal and well kempt Mental Status: mental status grossly normal Speech and movement: Normal speech and movement present and Clear speech present Affect: normal affect Attitude: cooperative Thought process: Normal thought process present Thought content: Normal thought content present Insight: Fair insight present (Psych) Judgement: Fair judgement present (Psych) Results AMB Urinalysis, Automated UA Leukoctes 0 Alex/uL Last Edit by Temnos on 03/20/25 15:47 UA Nitrite Last Edit by Temnos on 03/20/25 15:47 UA Urobilinogen 0.2 mg/dL Last Edit by Temnos on 03/20/25 15:47 UA Protein 0 mg/dL Last Edit by Temnos on 03/20/25 15:47 UA pH 6.0 Last Edit by Temnos on 03/20/25 15:47 UA Blood 0 Eduardo/uL Last Edit by Temnos on 03/20/25 15:47 UA Specific [employer] 1.010 Last Edit by Temnos on 03/20/25 15:47 UA Ketone Last Edit by Temnos on 03/20/25 15:47 UA Bilirubin 0 mg/dL Last Edit by Temnos on 03/20/25 15:47 UA Glucose 1000 mg/dL Last Edit by Temnos on 03/20/25 15:47 Results Reviewed Results Reviewed: Laboratory Last Values Urine pH (Auto) 6.0 03/20/25 15:44 Specific [employer] (Auto) 1.010 03/20/25 15:44 Urine Protein (Auto) 0 mg/dL 03/20/25 15:44 Glucose (UA)(Auto) 1000 mg/dL 03/20/25 15:44 Urine Blood (Auto) 0 Eduardo/uL 03/20/25 15:44 Urine Bilirubin (Auto) 0 mg/dL 03/20/25 15:44 Urine Urobilinogen (Auto) 0.2 mg/dL 03/20/25 15:44 Leukocyte Esterase (Auto) 0 Alex/uL 03/20/25 15:44 Assessment & Plan Assessment & Plan (1) Erectile dysfunction associated with type 2 diabetes mellitus: Code(s): E11.69 - Type 2 diabetes mellitus with other specified complication; N52.1 - Erectile dysfunction due to diseases classified elsewhere Category: Medical (2) Hypogonadism in male: Code(s): E29.1 - Testicular hypofunction Category: Medical Plan In office urinalysis results reviewed with the patient today; as noted above. Recent PSA and testosterone results reviewed with the patient and his today; as noted above. We discussed at length potential causes of hypogonadism as well as erectile dysfunction; we discussed further treatment options and risks and benefits of these treatment options. Will obtain A1c, prolactin, SHBG, testosterone free and total, LH, FSH, and estradiol for further assessment evaluation. Start low-dose Cialis 5 mg daily as discussed and prescribed. We discussed lifestyle modifications to assist with ED as well as hypogonadism. He currently denies any bothersome urinary issues or concerns. He reports be happy with current voiding parameters. We discussed the importance of maintaining good diabetic control for ED as well as overall health and well-being Follow-up in 3 months with labs to be completed prior; or sooner with any issues, concerns, and or questions Orders: Orders AMB Urinalysis Automated Today Z13.9 - Encounter for screening, unspecified Hemoglobin A1c Today E11.69 - Type 2 diabetes mellitus with other specified complication, N52.1 - Erectile dysfunction due to diseases classified elsewhere Prolactin Today E29.1 - Testicular hypofunction Sex Hormone Binding Globulin Today E29.1 - Testicular hypofunction Testosterone, Free/Total Today E11.69 - Type 2 diabetes mellitus with other specified complication, N52.1 - Erectile dysfunction due to diseases classified elsewhere Lutenizing Hormone Today E29.1 - Testicular hypofunction Follicle Stimulating Hormone Today E29.1 - Testicular hypofunction Estradiol Ultra Sensitive Today E29.1 - Testicular hypofunction Medications: New tadalafil (Cialis) [id number] [facility] [id number] Member [id number] 5 mg PO DAILY 90 days 90 tabs 1RF Patient Instructions: The patient had an opportunity to ask questions regarding the treatment plan. All questions were answered. Physical exam, labs, and imaging were discussed and reviewed in detail. As well as risks, benefits, and discussion of treatment choices. No major barriers to understanding were identified. The patient expressed understanding and agreement with the above treatment plan. The patient was made aware they should contact our office by phone for worsening of their current condition, the appearance of new symptoms, or with any questions or concerns. Compliance is encouraged with any medications and follow up testing that is ordered. It is a privilege to be allowed the opportunity to participate in? your urological care.? Again, if you have any questions or concerns If you have any questions or concerns please do not hesitate to contact me. The office is [phone]. This note is constructed using voice recognition software. While every effort has been made to ensure accuracy mold dresser errors may have been included. Yours sincerely, VERONICA Lee Coding Level of Care Code Est Pt Level 4 (06400) Diagnoses Erectile dysfunction associated with type 2 diabetes mellitus E11.69; N52.1 Hypogonadism in male E29.1
--- OUTSIDE RECORDS SUMMARY | 2025-03-20 16:02 | XMS_ITS | Patient Health Record ---
Author Organization [facility] Address [address] [place] [address] Support Name Relationship Address Phone REZA HOLM Emergency Contact [address] [address] [place], [place] [phone] PABLO GONZALEZ Guarantor Unknown [phone] Care Team Providers Care Insurance Office Manager Name Role Phone Domo ESPINAL, Renetta Primary [...] Problem Status W/U Status Risk Notes Problem [id number] Gastro-esophagea l reflux disease without esophagitis (K21.9) Active confirmed Plan Of Treatment Pending Test Test Name Order Date XR GI SERIES 11/22/2014 Next Appt Details Provider Name:Rodríguez Placido villegas Jr, 04/30/2025 11:00:00 AM, [address] [facility], [address], [place], [address], Insurance Providers Payer Name Payer Address Payer Phone Subscriber Number Group Number Insured Name Patient Relationship to Insured Coverage Start Date Coverage End Date MEDICAID OF [place] [address] [place] [phone] [id number] PABLO MÉNDEZ Self - patient is the insured Medical (General) History Medical History History ICD Code asthma esophageal reflux human immunodeficiency virus (HIV), posi tive hypertension Denies CVA,renal disease [place] 2008 glucose intolerance Surgical History Surgery Date(Month/Year) port for chemo
== END 2025-03-20 15:53 | disposition home or self-care (01) ==
LOC: HO.HUSH 14:45
PROVIDERS: PCP Family Medicine; Visit Provider Nurse Practitioner Family
DX: E11.69 Type 2 diabetes mellitus with other specified complication (principal); N52.1 Erectile dysfunction due to diseases classified elsewhere; E29.1 Testicular hypofunction; Z13.9 Encounter for screening, unspecified
CPT/HCPCS: 99214

== ENCOUNTER → 2025-03-20 14:44 | Outpatient (BNVA) | payer MEDICAID, SELFPAY | PROVIDERS: PCP Family Medicine; Visit Provider Nurse Practitioner Family | DX: E11.69 Type 2 diabetes mellitus with other specified complication (principal); N52.1 Erectile dysfunction due to diseases classified elsewhere; E29.1 Testicular hypofunction | CPT/HCPCS: 81003; 99212 ==

== ENCOUNTER → 2025-04-08 20:30 | Outpatient (BNV) | payer MEDICAID, SELFPAY | PROVIDERS: PCP Family Medicine; Visit Provider Internal Medicine | DX: G47.33 Obstructive sleep apnea (adult) (pediatric) (principal) | CPT/HCPCS: 95810 ==

== ENCOUNTER → 2025-04-08 20:30 | Outpatient (REF) | payer MEDICAID, SELFPAY | LOC: HO.SL 20:30 | PROVIDERS: PCP Family Medicine; Visit Provider Family Medicine | DX: G47.33 Obstructive sleep apnea (adult) (pediatric) (principal); G47.61 Periodic limb movement disorder | CPT/HCPCS: 95810 ==

== ENCOUNTER 2025-04-30 11:15 | Outpatient (REF) | payer MEDICAID, SELFPAY ==
--- OUTSIDE RECORDS SUMMARY | 2025-04-30 12:07 | XMS_ITS | Patient Health Record ---
Author Organization [facility] Address [address] [place] [address] Support Name Relationship Address Phone REZA HOLM Emergency Contact [address] [facility] [address] [place], [place] [phone] PABLO GONZALEZ Guarantor Unknown Care Team Providers Care Print Support Specialist Name Role Phone Domo ESPINAL, Renetta Primary Care Provider Unavailabl e Rodríguez Shah Jr Unavailable [phone] GRACIE ANAYA M.D. Unavailable Unavailable Allergies Allergen (clinical drug ingredient) Drug/Non Drug Allergy documented on EMR Reaction Allergy Type Onset Date Status Iodine Unknown Drug Allergy Active Reason For Referral Referring Provider First Name Renetta Referring Provider Last Name Domo Referring Provider Speciality Internal M edicine Referred Organization [facility] Referred Provider Rodríguez Shah Jr Referred Address [address] [facility] [address],[place],[address], Referred Provider Specialty Gastroentero logy Referral Priority Routine Medications Medication SIG (Take, Route, Frequency, Duration) Notes Start Date End Date Status metFORMIN HCl ER Act sayra Ranitidine HCl 300 MG 1 capsule at bedti ks Orally Once a day for 30 days [...] Problem Status W/U Status Risk Notes Problem [id number] Gastro-esophagea l reflux disease without esophagitis (K21.9) Active confirmed Encounters Encounter Location Date Provider Diagnosis [facility] [address] [facility] [address] [place] [address] 04/10/2025 Rodríguez Shah Jr Plan Of Treatment Pending Test Test Name Order Date XR GI SERIES 11/22/2014 Next Appt Details Provider Name:Rodríguez villegas Jr, 08/29/2025 09:40:00 AM, [address], [address], [place], [address], Insurance Providers Payer Name Payer Address Payer Phone Subscriber Number Group Number Insured Name Patient Relationship to Insured Coverage Start Date Coverage End Date [facility] [address] [place] [phone] [id number] PABLO MÉNDEZ Self - patient is the insured Medical (General) History Medical History History ICD Code asthma esophageal reflux human immunodeficiency virus (HIV), posi tive hypertension Denies CVA,renal disease [place] 2008 glucose intolerance Surgical History Surgery Date(Month/Year) port for chemo
[2025-04-30 13:31] LABS: Estimated Average Glucose 143 mg/dL; Hemoglobin A1c % 6.6 % (<6.0)
[2025-04-30 13:38] LABS: Rheumatoid Factor < 13.0 IU/mL (<15.0)
[2025-04-30 14:10] LABS: Erythrocyte Sedimentation Rate 3 MM/HR (0-15)
[2025-04-30 14:16] LABS: C Reactive Protein 0.15 mg/dL (< or = 0.50); Cholesterol 97 mg/dL (<200); HDL Cholesterol 26 mg/dL (>40); TSH reflex Free T4 2.18 uIU/mL (0.32-4.0); Triglycerides 616 mg/dL (<150); Vitamin D 25-OH Total 69.6 ng/mL (>30)
[2025-04-30 14:45] LABS: Reflex LDLD? Yes
[2025-05-01 06:18] LABS: Sex Hormone Binding Globulin 11 nmol/L (22-77)
[2025-05-01 07:09] LABS: LDL Cholesterol Direct 24 mg/dL (<100)
[2025-05-01 08:38] LABS: Follicle Stimulating Hormone 14.7 mIU/mL (1.4-12.8); Lutenizing Hormone 3.9 mIU/mL (1.5-9.3); Prolactin 3.6 ng/mL (2.0-18.0)
[2025-05-02 09:03] LABS: Anti Nuclear Antibody Screen NEGATIVE (NEGATIVE)
[2025-05-04 09:52] LABS: Cyclic Citrullinated Peptide <16 UNITS
[2025-05-07 01:13] LABS: Testosterone, Total 137 ng/dL (250-1100)
[2025-05-10 06:48] LABS: Estradiol Ultra Sensitive 6 pg/mL (< OR = 29)
== END 2025-04-30 11:16 | disposition home or self-care (01) ==
LOC: HO.HHCL 11:15
PROVIDERS: Nurse Practitioner Family; PCP Family Medicine; Visit Provider Family Medicine
DX: E11.69 Type 2 diabetes mellitus with other specified complication (principal); N52.1 Erectile dysfunction due to diseases classified elsewhere; R53.83 Other fatigue; M79.10 Myalgia, unspecified site; E55.9 Vitamin D deficiency, unspecified; E78.5 Hyperlipidemia, unspecified; R07.89 Other chest pain
CPT/HCPCS: 36415; 80061; 82085; 82306; 82550; 82670; 83001; 83002; 83036; 83721; 84146; 84270; 84402; 84403; 84443; 85652; 86038; 86140; 86200; 86431

== ENCOUNTER 2025-05-01 09:43 | Outpatient (REF) | payer MEDICAID, SELFPAY ==
--- OUTSIDE RECORDS SUMMARY | 2025-04-30 07:00 | XMS_ITS ---
Author Organization [facility] Address [address] [place] [address] Support Name Relationship Address Phone REZA HOLM Emergency Contact [address] [facility] [facility] [address] [place], [place] [phone] GONZALEZ, PABLO Guarantor Unknown [phone] Care Team Providers Care Property Management Supervisor Name Role Phone Domo ESPINAL, Renetta Primary Care Provider Unavailpati Shah Jr, Rodríguez Strong [phone] GRACIE ANAYA M.D. Unavailable REASON FOR VISIT discuss colonoscopy Encounters Encounter Location Date Provider Diagnosis [facility] [address] [place] [address] 04/30/2025 Rodríguez Shah Jr Plan Of Treatment Next Appt Details Provider Name:Rodríguez villegas Jr, 08/29/2025 09:40:00 AM, [address] [place] [address], [address], [place], [address], Progress Notes * GONZALEZ PABLODOB:1964 (59 yo M)Acc No.[id number]:04/30/2025 Progress Notes Patient: PABLO BROWN Provider: Mya Shah MD :1965 A ge:59 Y S ex:Male Date:04/30/2025 Address:[address] [place] [address], [place], [place] Pcp:Renetta Oliveros MD Subjective: * Chief Complaints: [...] Shah MD Date: 0 04/30/2025 Generated for Sne rebolledo/José/Alverto on: 0 05/01/2025 10:33 AM EDT
--- NOTE | ~2025-05-01 | XR_ITS ---
CLINICAL HISTORY: sternal pain Two views of the sternum. COMPARISON: None provided. FINDINGS: Visualized portions of the sternum appear intact and normal in alignment. Visualized portions of the lungs are clear. Mild spondylosis. No acute fracture identified. IMPRESSION: 1. No radiographic evidence of acute injury to the sternum. This document has been electronically signed by: Ilir Fan MD on 05/02/2025 13:52:25
== END 2025-05-01 09:44 | disposition home or self-care (01) ==
LOC: HO.XRAY 09:43
PROVIDERS: PCP Family Medicine; Visit Provider Family Medicine
DX: R07.89 Other chest pain (principal)
CPT/HCPCS: 71120

== ENCOUNTER → 2025-05-01 09:49 | Outpatient (BNV) | payer MEDICAID, SELFPAY | PROVIDERS: PCP Family Medicine; Visit Provider Radiology Diagnostic Radiology | DX: R07.89 Other chest pain (principal) | CPT/HCPCS: 71120 ==

== ENCOUNTER 2025-05-15 07:39 | Outpatient (AMB) | payer MEDICAID, SELFPAY ==
--- OUTSIDE RECORDS SUMMARY | 2025-04-30 07:00 | XMS_ITS ---
Author Organization [facility] Address [address] [place] [address] Support Name Relationship Address Phone REZA HOLM Emergency Contact [address] [facility] [address] [place], [place] [phone] GONZALEZ, PABLO Guarantor Unknown [phone] Care Team Providers Care Supervisor Steffen House Name Role Phone Domo ESPINAL, Renetta Primary Care Provider Unavailpati Shah Jr, Rodríguez Strong GRACIE ANAYA M.D. Unavailable REASON FOR VISIT discuss colonoscopy Encounters Encounter Location Date Provider Diagnosis [facility] [address] [place] [address] 04/30/2025 Rodríguez Shah Jr Plan Of Treatment Next Appt Details Provider Name:Rodríguez villegas Jr, 08/29/2025 09:40:00 AM, [address] [place] [address], [address], [place], [address], Progress Notes * GONZALEZ PABLODOB:1964 (59 yo M)Acc No.[id number]:04/30/2025 Progress Notes Patient: PABLO BROWN Provider: Mya hSah MD :1965 A ge:59 Y S ex:Male Date:04/30/2025 Address:[address] [place] [address], [place], [place] Pcp:Renetta Oliveros MD Subjective: * Chief Complaints: [...] 04/30/2025 Generated for Sen rebolledo/José/Alverto on: 0 05/15/2025 07:41 AM EDT
--- NOTE | 2025-05-15 07:55 | MHC.OFFVIS ---
Vital Signs 05/15/25 07:56 Height 5 ft 11 in Pulse 91 Pulse Source Pulse Oximeter Pulse Oximetry (%) 96 Oxygen Delivery Method Room Air Intake Visit Reasons: INP-KARINA Intake Note: Patient presents BMX RIDER KARINA. Patient states had sleep study 04/2025. Patient states machine he has now is over 5years old. Assistant Professor Of Biochemistry Required: Yes Assistant Professor Of Biochemistry Services: Assistant Professor Of Biochemistry Offered & Declined Assistant Professor Of Biochemistry Name: Information Interpreted: non-clinical & clinical Accompanied by: Spouse Allergies iodine (IODINE) Allergy (Unknown, Verified 05/15/25 07:59) DIFFICULTY BREATHING SEAFOOD Allergy (Unknown, Uncoded 03/20/25 15:55) ANAPHYLAXIS HPI Comments Details: 59 year old male referred to us for a sleep evaluation, by his pcp Dr. Moore. Irene his helps with history today. April 2023 PSG c/w AHI was 43 and oxygen Janak was 82%. April 2025 split night study c/w AHI 67/hr and titration pressure of 4cm gradually to 13cm corrected nocturnal hypoxemia with cpap use. Recommendations full face mask, with humidification and start therapy at [id number], monitor closely for compliance. April 2025 had a sleep study and looking to get a new machine, machine is old and broken. He has trouble going to sleep, he can not relax when he lays down, and feels short of breath and fatigued. He fights to go to sleep. He goes to sleep at 1am to 2am gets up at 5-6am, gets up for the bathroom 2-3 times and or looks around at the ceilings. He snores loudly and and stops breathing, his has to nudge him to wake up and take a breath. He wakes up daily with headaches, feeling dizzy, with vertigo and balance difficulties, 2 years ago he fell in the yard 2x in [place]. The headaches can last all day, start at the temporal area bilaterally, feels as if his head is going to blow up with pressure. RLS syndrome symptoms neuropathy L. lower extremity moderate to severe axonal and sensory peripheral neuropathy. Bilateral hands numbness and stiffness, unable to belt picker and drops articles. Denies parasomnias, he does talk in his sleep. STM is poor he forgets names, tasks, and misplaces things, loses track time and days of week. He does not drive. Mood is irritable due to trauma from his past, and sees his therapist every 2 weeks. He does not smoke or drink alcohol. [facility] Medical History Anemia of chronic disease GERD (gastroesophageal reflux disease) Dyslipidemia Tubular adenoma of colon Essential hypertension Peripheral polyneuropathy HIV (human immunodeficiency virus infection) Surgical History History of cardiac catheterization Family History Sister Diabetes Kidney problem Father Diabetes Mother Diabetes Brother Diabetes Kidney problem Heart problem Brother Diabetes Lymphoma Other Family history of arthritis Social History Household Members: Spouse Housing: Apartment Alcohol intake: former Patient Tobacco Use Status: Former Tobacco user service: No Current occupational status: disabled Physical Exam Vital Signs: Last Vital Signs Pulse 91 05/15/25 07:56 Pulse Ox 96 05/15/25 07:56 Oxygen Delivery Method Room Air 05/15/25 07:56 Const General: cooperative, comfortable and no acute distress Nutritional Appearance: obese Orientation/consciousness: patient oriented x3 Limitations: language barrier HEENT Face and sinus: Yes face symmetric Teeth and gingiva: other ([place] score is 4) Eyes Pupils: Equal, round and reactive pupils present Neck Other: pain on lateral rotation bilaterally Resp Effort & Inspection: normal respiratory effort and able to speak in complete sentences Neuro General: patient oriented x3 and moves all extremities Cranial nerves: Yes Facial sensation intact/muscles of mastication intact, Yes Equal, round and reactive pupils present, Yes Normal accommodation reflex present, Yes Normal facial strength present, Yes Midline tongue present, Yes Ability to bilaterally rotate head present (with pain on rotation bilaterally) and Yes Ability to bilaterally elevate shoulders present Cognition (Neuro): normal cognition Gait exam (Neuro): Normal gait present Motor exam (neuro): 5/5 motor strength present throughout and Normal motor muscle tone present throughout Deep tendon reflexes (DTR's): Right triceps reflex intensity grade: 2+, Left triceps reflex intensity grade: 2+, Rt Biceps (C5, C6): 2+, Left biceps reflex intensity grade: 2+, Right brachioradialis reflex intensity grade: 2+, Left brachioradialis reflex intensity grade: 2+, Right patellar reflex intensity grade: 2+, Left patellar reflex intensity grade: 2+, Right ankle reflex intensity grade: 2+ and Left ankle reflex intensity grade: 2+ Psych Appearance: well kempt Speech and movement: Restless speech present Thought process: Normal thought process present Thought content: Normal thought content present Results Reviewed Results Reviewed: 03/2025 OTHER CONSIDERATIONS: The stage of liver fibrosis may be overestimated in the setting of acute hepatitis, liver inflammation, elevated liver function tests, hepatic vascular congestion, obstructive cholestasis, non-fasting state, and infiltrative diseases such as amyloidosis and lymphoma. In some patients with NAFLD, the liver stiffness thresholds for compensated advanced chronic liver disease may be lower. In causes other than viral hepatitis and NAFLD, liver stiffness thresholds are not well established. Labs reviewed with pt. Triglycerides elevated, A1c is 6.6. TSH normal. FSH/LH Elevated. Testosterone Low. April 2023 PSG c/w AHI was 43 and oxygen Janak was 82%. April 2025 split night study c/w AHI 67/hr and titration pressure of 4cm gradually to 13cm corrected nocturnal hypoxemia with cpap use. Recommendations full face mask, with humidification and start therapy at [id number], monitor closely for compliance. Assessment & Plan Assessment & Plan (1) KARINA (obstructive sleep apnea): Code(s): G47.33 - Obstructive sleep apnea (adult) (pediatric) Category: Medical (2) Bilateral headaches: Comment: sumatriptan Code(s): R51.9 - Headache, unspecified Category: Medical (3) RLS (restless legs syndrome): Comment: will monitor Code(s): G25.81 - Restless legs syndrome Category: Medical (4) Excessive daytime sleepiness: Comment: reviewed labs w/pt. TSH normal, Vit D normal, HDL is low, Triglycerides 616H/ Code(s): G47.19 - Other hypersomnia Category: Medical Plan KARINA Cpap Rx written to be sent, his machine is inoperable will send order for a new machine. Fatiuge r/o deficiencies Labs anemia/ B12/ MMA / Homocysteine/ Headaches Sumatriptan 25mg po at onset of headaches may take one more tablet within 2 hours if headache does not subside for a total dose not to exceed 100mg po daily. Orders: Orders Homocysteine Today G47.19 - Other hypersomnia, G47.9 - Sleep disorder, unspecified, R53.83 - Other fatigue Methylmalonic Acid Today G47.19 - Other hypersomnia, G47.9 - Sleep disorder, unspecified, R53.83 - Other fatigue Vitamin B12 and Folate Today G47.19 - Other hypersomnia Magnesium Today G47.19 - Other hypersomnia IRON PROFILE Today G47.19 - Other hypersomnia, G47.9 - Sleep disorder, unspecified, R53.83 - Other fatigue Ferritin Today G47.19 - Other hypersomnia Medications: New sumatriptan succinate take 1 tab at onset of headache; if no relief may repeat 1 tab after at least 2 hrs; max = 4 tabs/24 hr orally; 12 tabs 0RF bilateral headaches 1 month MDD 100mg R51.9 - Headache, unspecified Patient Instructions: Sleep Hygiene provided: set a scheduled bedtime and wake time to help regulate the circadian rhythm and balance the release of pituitary hormones. Sleep in a dark room, temperatures below 68 degrees, and no devices n bed. Limit caffeinated products 6 hours prior to bed, and limit fluids 2-4 hours prior to bed. Gentle night yoga, diffusing essential oils, and playing soft music can be relaxing. Preventative migraine therapy CGRP antagonists: The G-pants Sumatriptan, Rizatriptan, Ellatriptan at the acute onset of migraines. Triptans 1 tablets with onset of migraine. If migraine does not abort, may repeat one more tablet 2 hours later as needed. Do not exceed 4 tablets in a 24 hour period. Coding Level of Care Code New Pt Level 4 (29901) Diagnoses KARINA (obstructive sleep apnea) G47.33 Bilateral headaches R51.9 RLS (restless legs syndrome) G25.81 Excessive daytime sleepiness G47.19 Time Spent (min) 40 Comment Start Therapy on CPAP Sleep Questionnaire Difficulty falling asleep: Yes Difficulty staying asleep?: Yes Number of arousals: 5-6 Snoring: Yes Witnessed apneas: Yes Gasping arousals: Yes Nocturia: Yes GERD: Yes Vivid dreams: Yes Acting out dreams: Yes Abnormal behavior in sleep: Yes Abnormal movements in sleep: Yes Morning headaches: Yes Excessive daytime sleepiness: Yes Daytime naps: Yes Restless legs: Yes Hallucinations: Yes Sleep paralysis: Yes Drop attacks: Yes Sleep Study: Yes CPAP: Yes
[2025-05-15 07:56] VITALS: PULSE 91; O2SAT 96
== END 2025-05-15 08:56 | disposition home or self-care (01) ==
LOC: HO.HSMS 07:39
PROVIDERS: PCP Family Medicine; Visit Provider Physician Assistant Medical
DX: G47.33 Obstructive sleep apnea (adult) (pediatric) (principal); R51.9 Headache, unspecified; G25.81 Restless legs syndrome; G47.19 Other hypersomnia
CPT/HCPCS: 99204

== ENCOUNTER → 2025-05-15 07:39 | Outpatient (BNVA) | payer MEDICAID, SELFPAY | PROVIDERS: PCP Family Medicine; Visit Provider Physician Assistant Medical | DX: G47.33 Obstructive sleep apnea (adult) (pediatric) (principal); R51.9 Headache, unspecified; G25.81 Restless legs syndrome; G47.19 Other hypersomnia | CPT/HCPCS: 99212 ==

== ENCOUNTER 2025-06-01 09:13 | Outpatient (REF) | payer MEDICAID, SELFPAY ==
--- OUTSIDE RECORDS SUMMARY | 2025-04-30 07:00 | XMS_ITS ---
Author Organization [facility] Address [address] [place] [address] Support Name Relationship Address Phone REZA HOLM Emergency Contact [address] [facility] [address] [place], [place] [phone] GONZALEZ, PABLO Guarantor Unknown [phone] Care Team Providers Care Cushion Cover Inspector Name Role Phone Domo ESPINAL, Renetta Primary Care Provider Unavailpati Shah Jr, Rodríguez Strong [phone] GRACIE ANAYA M.D. Unavailable REASON FOR VISIT discuss colonoscopy Encounters Encounter Location Date Provider Diagnosis [facility] [address] [place] [address] 04/30/2025 Rodríguez Shah Jr Plan Of Treatment Next Appt Details Provider Name:Rodríguez villegas Jr, 08/29/2025 09:40:00 AM, [address] [place] [address], [address], [place], [address], Progress Notes * GONZALEZ, PABLODOB:1964 (59 yo M)Acc No.[id number]:04/30/2025 Progress Notes Patient: PABLO BROWN Provider: Mya Shah MD :1965 A ge:59 Y S ex:Male Date:04/30/2025 Address:[address] [place] [address], [place], [place] Pcp:Renetta Oliveros MD Subjective: * Chief Complaints: [...] 0 04/30/2025 Generated for Sen rebolledo/José/Alverto on: 06/01/2025 09:28 AM EDT
--- OUTSIDE RECORDS SUMMARY | 2025-06-01 09:28 | XMS_ITS | Clinical Summary ---
Author Organization [facility] Address [address] [place] [address] Care Team Providers Care Field Representative Name Role Phone Unknown, Provider DO Primary Care Provider Unava ilable Social History Tobacco Use Types Packs/Day Years Used Date Smoking Tobacco: Never Assessed Sex and Gender Information Value Date Recorded Sex Assigned at Not on file Legal Sex Male 12:50 EST Gender Identity Not on file Sexual Orientation Not on file Plan of Treatment Health Maintenance Due Date Last Done Comments Hepatitis C Screen 1965 Hepatitis B Vaccine (1 of 3 - 19+ 3-dose series) 07/17 COVID-19 Vaccine ( season) 2024 Care Teams Field Representative Relationship Specialty Start Date End Date Unknown, Provider, DO PCP - General 09/06/15
[2025-06-01 12:04] LABS: MANUAL DIFF FLAG NO
[2025-06-01 12:07] LABS: Hematocrit 45.4 % (42.0-52.0); Hemoglobin 14.6 g/dl (14.0-18.0); Imm Gran Abs Auto 0.02 X10*3/uL (0.00-0.03); Imm Gran Pct Auto 0.4 % (0.0-0.4); Lymphocytes Absolute Auto 1.4 X10*3/uL (1.2-4.9); Mean Corpuscular HGB Conc 32.2 g/dl (31.0-36.0); Mean Corpuscular Hemoglobin 31.7 pg (27.0-33.0); Mean Corpuscular Volume 98.7 fL (80.0-98.0); NRBC Abs Auto 0.000 X10*3/uL (0.0-0.012); NRBC Pct Auto 0.0 /100WBC (0.0-0.2); Platelet Count 132 X10*3/uL (160-400); Red Blood Count 4.60 X10*6/uL (4.60-5.80); White Blood Count 5.0 X10*3/uL (4.8-10.8)
[2025-06-01 13:03] LABS: Alanine Aminotransferase 65 U/L (0-40); Albumin Level 4.8 g/dL (3.5-5.0); Alkaline Phosphatase 99 U/L (39-117); Anion Gap 19 (12-20); Aspartate Amino Transferase 58 U/L (5-37); Blood Urea Nitrogen 23 mg/dL (9-16); Calcium 9.8 mg/dL (8.4-10.2); Carbon Dioxide 24 mmol/L (22-29); Chloride 101 mmol/L (96-108); Estimated Glomerular Filt Rate > 60; Iron 72 mcg/dL (45-160); Magnesium 2.0 mg/dL (1.6-2.6); Percent Iron Saturation 20 % (15-50); Potassium 4.5 mmol/L (3.3-5.1); Sodium 139 mmol/L (135-145); Total Iron Binding Capacity 369 mcg/dL (228-428); Total Protein 7.8 g/dL (6.5-8.0); Unsaturated Iron Binding 297 ug/dL
[2025-06-01 13:05] LABS: Cholesterol 99 mg/dL (<200); HDL Cholesterol 24 mg/dL (>40); Triglycerides 666 mg/dL (<150)
[2025-06-01 13:07] LABS: Ferritin 79 ng/mL (20-250)
[2025-06-01 13:43] LABS: Folate 13.6 ng/mL (> or = 4.0); Vitamin B12 401 pg/mL (200-900)
[2025-06-01 14:48] LABS: Reflex LDLD? Yes
[2025-06-05 15:23] LABS: HIV RNA PCR Qn Copies NOT DETECTED copies/mL (NOT DETECTED); HIV RNA PCR Qn Log Copies NOT DETECTED (NOT DETECTED)
[2025-06-06 16:19] LABS: Absolute CD3 Count 858 cells/uL (840-3060); Absolute CD8 Count 436 cells/uL (180-1170); Percent CD3 Cells 65 % (57-85); Percent CD8 Cells 33 % (12-42)
== END 2025-06-01 09:14 | disposition home or self-care (01) ==
LOC: HO.HHCL 09:13
PROVIDERS: Physician Assistant Medical; PCP Family Medicine; Visit Provider Internal Medicine
DX: Z21 Asymptomatic human immunodeficiency virus [HIV] infection status (principal); G47.19 Other hypersomnia; R53.83 Other fatigue; E55.9 Vitamin D deficiency, unspecified
CPT/HCPCS: 36415; 80053; 80061; 82306; 82607; 82728; 82746; 83090; 83540; 83721; 83735; 83921; 85025; 86359; 86360; 87536

== ENCOUNTER 2025-06-18 10:22 | Outpatient (REF) | payer MEDICAID, SELFPAY ==
--- OUTSIDE RECORDS SUMMARY | 2025-04-30 07:00 | XMS_ITS ---
Author Organization [facility] Address [address] [place] [address] Support Name Relationship Address Phone REZA HOLM Emergency Contact [address] [facility] [address] [place], [place] [phone] GONZALEZ, PABLO Guarantor Unknown [phone] Care Team Providers Care Personalization Specialist Name Role Phone Domo ESPINAL, Renetta Primary Care Provider Unavailpati Shah Jr, Rodríguez Strong [phone] GRACIE ANAYA M.D. Unavailable REASON FOR VISIT discuss colonoscopy Encounters Encounter Location Date Provider Diagnosis [facility] [address] [place] [address] 04/30/2025 Rodríguez Shah Jr Plan Of Treatment Next Appt Details Provider Name:Rodríguez villegas Jr, 08/29/2025 09:40:00 AM, [address] [place] [address], [address], [place], [address], Progress Notes * GONZALEZ PABLODOB:1964 (59 yo M)Acc No.[id number]:04/30/2025 Progress Notes Patient: PABLO BROWN Provider: Mya Shah MD :1965 A ge:59 Y S ex:Male Date:04/30/2025 Address:[address] [place] [address], [place], [place] Pcp:Renetta Oliveros MD Subjective: * Chief Complaints: [...] 04/30/2025 Generated for Sen rebolledo/José/Alverto on: 0 06/18/2025 11:25 AM EDT
--- OUTSIDE RECORDS SUMMARY | 2025-06-18 11:26 | XMS_ITS | Clinical Summary ---
Author Organization [facility] Address [address] [place] [address] Care Team Providers Care Nuclear Equipment Research Engineer Name Role Phone Unknown, Provider MD Primary Care Provider Unava ilable Social History [...] COVID-19 Vaccine ( season) 2024 Care Teams Nuclear Equipment Research Engineer Relationship Specialty Start Date End Date Unknown, Provider, PCP - General 09/06/15
[2025-06-18 12:09] LABS: Hemoglobin A1C 231.7120 umol/L; Total Hemoglobin (HGBA1C) 3815.8443 umol/L
[2025-06-18 12:36] LABS: Prostate Specific Antigen 0.33 ng/mL (<0.05-4.0)
[2025-06-19 08:48] LABS: Follicle Stimulating Hormone 12.5 mIU/mL (1.4-12.8)
[2025-06-22 14:42] LABS: Testosterone, Free 46.0 pg/mL (35.0-155.0)
[2025-07-03 06:28] LABS: Estradiol Ultra Sensitive 9 pg/mL (< OR = 29)
== END 2025-06-18 10:23 | disposition home or self-care (01) ==
LOC: HO.HHCL 10:22
PROVIDERS: PCP Nurse Practitioner Family; Visit Provider Nurse Practitioner Family
DX: E29.1 Testicular hypofunction (principal); N40.0 Benign prostatic hyperplasia without lower urinary tract symptoms; E11.69 Type 2 diabetes mellitus with other specified complication; N52.1 Erectile dysfunction due to diseases classified elsewhere
CPT/HCPCS: 36415; 82670; 83001; 83002; 83036; 84146; 84153; 84270; 84402; 84403

== ENCOUNTER 2025-07-20 11:47 | Outpatient (REF) | payer MEDICAID, SELFPAY ==
--- OUTSIDE RECORDS SUMMARY | 2025-04-30 07:00 | XMS_ITS ---
Author Organization [facility] Address [address] [place] [address] Support Name Relationship Address Phone REZA HOLM Emergency Contact [address] [facility] [address] [place], [place] [phone] GONZALEZ, PABLO Guarantor Unknown Care Team Providers Care Computer Technical Specialist Name Role Phone Domo ESPINAL, Renetta Primary Care Provider Unavailpati Shah Jr, Rodríguez tSrong GRACIE ANAYA M.D. Unavailable REASON FOR VISIT discuss colonoscopy Encounters Encounter Location Date Provider Diagnosis [facility] [address] [facility] [address] [place] [address] 04/30/2025 Rodríguez Shah Jr Plan Of Treatment Next Appt Details Provider Name:Rodríguez villegas Jr, 08/29/2025 09:40:00 AM, [address] [place] [address], [address], [place], [address], Progress Notes * GONZALEZ PABLODOB:1964 (60 yo M)Acc No.[id number]:04/30/2025 Progress Notes Patient: PABLO BROWN Provider: Mya Shah MD :1965 A ge:59 Y S ex:Male Date:04/30/2025 Address:[address] [place] [address], [place] Pcp:Renetta Oliveros MD Subjective: * Chief Complaints: [...] 04/30/2025 Generated for Sen rebolledo/José/Alverto on: 0 07/20/2025 12:17 PM EDT
--- NOTE | ~2025-07-20 | US_ITS ---
EXAMINATION: US KIDNEY BILATERAL HISTORY: N20.0 - Calculus of kidney TECHNIQUE: Real-time grayscale ultrasound imaging of the kidneys was performed and images were reviewed. COMPARISON: Comparison is made with the abdominal ultrasound dated 03/06/2025. FINDINGS: Right kidney: The right kidney measures 10.5 x 6.8 x 7.2 cm. Renal parenchymal echotexture and thickness are normal. There is a 6 mm cyst at the lower pole and a 7 x 5 x 8 mm cyst in the interpolar region. There is no hydronephrosis or renal calculi. Left Kidney: The left kidney measures 14.9 x 6.5 x 6.4 cm. Renal parenchymal echotexture and thickness are normal. There is a 1.3 x 0.7 x 0.9 cm cyst at the lower pole and a 7 x 6 x 8 mm cyst in the interpolar region. There is no hydronephrosis or renal calculi. Incidental note is made of splenomegaly. US/US renal BI IMPRESSION: 1. Bilateral renal cysts as described. No evidence of nephrolithiasis. 2. Splenomegaly. Electronically signed by: Akbar Weber MD 07/20/2025 01:12 PM EDT
--- OUTSIDE RECORDS SUMMARY | 2025-07-20 12:17 | XMS_ITS | Patient Health Record ---
Author Organization [facility] Address [address] [place] [address] Support Name Relationship Address Phone REZA HOLM Emergency Contact [address] [place], [place] [id number] PABLO GONZALEZ Guarantor Unknown [phone] Care Team Providers Care Engineer Technician Name Role Phone Domo ESPINAL, Renetta Primary Care Provider Unavailabl e Rodríguez Shah Jr Unavailable [phone] GRACIE ANAYA M.D. Unavailable Unavailable Allergies Allergen (clinical drug ingredient) Drug/Non Drug Allergy documented on EMR Reaction Allergy Type Onset Date Status Iodine Unknown Drug Allergy Active Reason For Referral Referring Provider First Name Renetta Referring Provider Last Name Domo Referring Provider Speciality Internal M edicine Referred Organization [facility] Referred Provider Rodríguez Shah Jr Referred Address [address],[place], [place],[address], Referred Provider Specialty Gastroentero logy Referral Priority Routine Medications Medication SIG (Take, Route, Frequency, Duration) Notes Start Date End Date Status metFORMIN HCl ER Act sayra Ranitidine HCl 300 MG 1 capsule at bedti in Orally Once a day for 30 days [...] Problem Status W/U Status Risk Notes Problem [id number] Gastro-esophagea l reflux disease without esophagitis (K21.9) Active confirmed Encounters Encounter Location Date Provider Diagnosis [facility] [address] [place] [address] 04/10/2025 Rodríguez Shah Jr Plan Of Treatment Pending Test Test Name Order Date XR GI SERIES 11/22/2014 Next Appt Details Provider Name:Rodríguez villegas Jr, 08/29/2025 09:40:00 AM, [address], [address], [place], [address], Insurance Providers Payer Name Payer Address Payer Phone Subscriber Number Group Number Insured Name Patient Relationship to Insured Coverage Start Date Coverage End Date MEDICA[facility] OF [employer] [facility] [address] [place] [phone] [id number] PABLO MÉNDEZ Self - patient is the insured Medical (General) History Medical History History ICD Code asthma esophageal reflux human immunodeficiency virus (HIV), posi tive hypertension Denies CVA,renal disease [place] 2008 glucose intolerance Surgical History Surgery Date(Month/Year) port for chemo
--- OUTSIDE RECORDS SUMMARY | 2025-07-20 12:17 | XMS_ITS | Clinical Summary ---
Author Organization [facility] Address [address] [place] [address] Care Team Providers Care Otr Owner Operator Name Role Phone Unknown, Provider MD Primary [...] COVID-19 Vaccine ( season) 2024 Care Teams Otr Owner Operator Relationship Specialty Start Date End Date Unknown, Provider, PCP - General 09/06/15
== END 2025-07-20 11:48 | disposition home or self-care (01) ==
LOC: HO.US 11:47
PROVIDERS: PCP Family Medicine; Visit Provider Nurse Practitioner Family
DX: N20.0 Calculus of kidney (principal); N28.1 Cyst of kidney, acquired
CPT/HCPCS: 76775

== ENCOUNTER → 2025-07-20 11:48 | Outpatient (BNV) | payer MEDICAID, SELFPAY | PROVIDERS: PCP Family Medicine; Visit Provider Radiology Diagnostic Radiology | DX: N28.1 Cyst of kidney, acquired (principal) | CPT/HCPCS: 76775 ==

== ENCOUNTER 2025-07-23 18:07 | Outpatient (REF) | payer MEDICAID, SELFPAY ==
--- OUTSIDE RECORDS SUMMARY | 2025-04-30 07:00 | XMS_ITS ---
Author Organization [facility] Address [address] [place] [address] Support Name Relationship Address Phone REZA HOLM Emergency Contact [address] [facility] [address] [place], [place] [phone] GONZALEZ, PABLO Guarantor Unknown Care Team Providers Care Basketball Assembler Name Role Phone Domo ESPINAL, Renetta Primary Care Provider Unavailpati Shah Jr, Rodríguez Strong GRACIE ANAYA M.D. Unavailable REASON FOR VISIT discuss colonoscopy Encounters Encounter Location Date Provider Diagnosis [facility] [address] [facility] [address] [place] [address] 04/30/2025 Rodríguez Shah Jr Plan Of Treatment Next Appt Details Provider Name:Rodríguez villegas Jr, 08/29/2025 09:40:00 AM, [address] [place] [address], [address], [place], [address], Progress Notes * GONZALEZ PABLODOB:1964 (60 yo M)Acc No.[id number]:04/30/2025 Progress Notes Patient: PABLO BROWN Provider: Mya Shah MD :1965 A ge:59 Y S ex:Male Date:04/30/2025 Address:[address] [place] [address], [place], [place] Pcp:Renetta Oliveros MD Subjective: * Chief Complaints: [...] 04/30/2025 Generated for Sen rebolledo/José/Alverto on: 0 07/23/2025 05:50 AM EDT
--- OUTSIDE RECORDS SUMMARY | 2025-07-23 18:28 | XMS_ITS | Patient Health Record ---
Author Organization [facility] Address [address] [place] [address] Support Name Relationship Address Phone REZA HOLM Emergency Contact [address] [place], [place] [phone] PABLO GONZALEZ Guarantor Unknown Care Team Providers Care Filter Helper Name Role Phone Domo ESPINAL, Renetta Primary Care Provider Unavailabl e Rodríguez Shah Jr Unavailable GRACIE ANAYA M.D. Unavailable Unavailable Allergies Allergen (clinical drug ingredient) Drug/Non Drug Allergy documented on EMR Reaction Allergy Type Onset Date Status Iodine Unknown Drug Allergy Active Reason For Referral Referring Provider First Name Renetta Referring Provider Last Name Domo Referring Provider Speciality Internal M edicine Referred Organization [facility] Referred Provider Rodríguez Shah Jr Referred Address [address],[place],[address], Referred Provider Specialty Gastroentero logy Referral Priority Routine Medications Medication SIG (Take, Route, Frequency, Duration) Notes Start Date End Date Status metFORMIN HCl ER Act sayra Ranitidine HCl 300 MG 1 capsule at bedti nm Orally Once a day for 30 days [...] Problem Status W/U Status Risk Notes Problem [id number] Gastro-esophagea l reflux disease without esophagitis (K21.9) Active confirmed Encounters Encounter Location Date Provider Diagnosis [facility] [address] [place] [address] 04/10/2025 Rodríguez Shah Jr Plan Of Treatment Pending Test Test Name Order Date XR GI SERIES 11/22/2014 Next Appt Details Provider Name:Rodríguez villegas Jr, 08/29/2025 09:40:00 AM, [address], [address], [place], [address], Insurance Providers Payer Name Payer Address Payer Phone Subscriber Number Group Number Insured Name Patient Relationship to Insured Coverage Start Date Coverage End Date [facility] [address] [place] [phone] [id number] PABLO MÉNDEZ Self - patient is the insured Medical (General) History Medical History History ICD Code asthma esophageal reflux human immunodeficiency virus (HIV), posi tive hypertension Denies CVA,renal disease [place] 2008 glucose intolerance Surgical History Surgery Date(Month/Year) port for chemo
[2025-08-01 14:14] LABS: HPV MRNA E6/E7 Rectal DETECTED
[2025-08-02 12:37] LABS: HPV 16 RNA, Rectal NOT DETECTED; HPV 18/45 RNA Rectal NOT DETECTED
== END 2025-07-23 18:08 | disposition home or self-care (01) ==
LOC: HO.HHCLNP 18:07
PROVIDERS: Visit Provider Family Medicine
DX: Z21 Asymptomatic human immunodeficiency virus [HIV] infection status (principal); Z11.51 Encounter for screening for human papillomavirus (HPV)
CPT/HCPCS: 36415; 87624; 87625; 88112

== ENCOUNTER 2025-07-26 08:23 | Outpatient (AMB) | payer MEDICAID, SELFPAY ==
--- OUTSIDE RECORDS SUMMARY | 2025-04-30 07:00 | XMS_ITS ---
Author Organization [facility] Address [address] [place] [address] Support Name Relationship Address Phone REZA HOLM Emergency Contact [address] [facility] [address] [place], [place] [phone] GONZALEZ, PABLO Guarantor Unknown Care Team Providers Care Bi Data Architect Name Role Phone oDmo ESPINAL, Renetta Primary Care Provider Unavailpati Shah Jr, Rodríguez Strong [phone] GRACIE ANAYA M.D. Unavailable REASON FOR VISIT discuss colonoscopy Encounters Encounter Location Date Provider Diagnosis [facility] [address] [place] [address] 04/30/2025 Rodríguez Shah Jr Plan Of Treatment Next Appt Details Provider Name:Rodríguez villegas Jr, 08/29/2025 09:40:00 AM, [address] [place] [address], [address], [place], [address], Progress Notes * GONZALEZ PABLODOB:1964 (60 yo M)Acc No.[id number]:04/30/2025 Progress Notes Patient: PABLO BROWN Provider: Mya Shah MD :1965 A ge:59 Y S ex:Male Date:04/30/2025 Address:[address] [place] [address], [place], [place] Pcp:Renetta Oliveros MD Subjective: * Chief Complaints: [...] 0 04/30/2025 Generated for Sen rebolledo/José/Alverto on: 0 07/26/2025 08:52 AM EDT
--- NOTE | 2025-07-26 08:28 | A.OFFVIS_ITS ---
Intake Visit Reasons: 1y/US/PSA Intake Note: Patient is present for 1Y/US/PSA Urology Medication:VITAMIN B6,TADALAFIL, Antibiotic Allergy:NONE Blood Thinner:ASPIRIN Manager Registration Required: No Manager Registration Services: Manager Registration Present Manager Registration Name: debra from [facility] [place] Allergies iodine (IODINE) Allergy (Unknown, Verified 07/26/25 09:33) DIFFICULTY BREATHING SEAFOOD Allergy (Unknown, Uncoded 07/26/25 09:33) ANAPHYLAXIS Medication List - Last Reconciled 07/26/25 by VERONICA Lee alcohol swabs (Alcohol Prep Pads) 1 pad topical BID allopurinol 1 tab PO QAM aspirin 1 tab PO QAM atorvastatin 1 tab PO QPM xzbmthdwz-zifoahoh-vqoqpsl ala 50-200-25 mg (Biktarvy) tabs PO begfkpovx-fcgayora-pugtjxe ala 50-200-25 mg (Biktarvy) 1 tab PO BEDTIME blood sugar diagnostic (FreeStyle Lite Strips) carvedilol 1 tab PO BID cholecalciferol (vitamin D3) 25 mcg PO QAM divalproex ER 500 mg PO BEDTIME empagliflozin-metformin 5-1,000 mg ER (Synjardy XR) 1 tab PO DAILY erythromycin 1 appl ophthalmic (eye) DAILY gabapentin 1 cap PO TID lancets (TRUEplus Lancets) olmesartan mg omeprazole 20 mg PO DAILY pioglitazone 15 mg PO DAILY prazosin 4 mg PO BEDTIME pyridoxine (vitamin B6) 100 mg PO DAILY 90 days sitagliptin phosphate (Januvia) 100 mg PO QAM sumatriptan succinate take 1 tab at onset of headache; if no relief may repeat 1 tab after at least 2 hrs; max = 4 tabs/24 hr orally; 1 month MDD 100mg tadalafil (Cialis) 5 mg PO DAILY 90 days trazodone 100 mg PO BEDTIME HPI Comments Details: Radhames is a very pleasant 60-year-old Yakut-speaking male patient of Dr. Oliveros who was accompanied by his at today's visit. He has a past medical history of anemia of chronic diseases, dyslipidemia, hypertension, GERD, HIV on HAART, peripheral polyneuropathy, and treated lymphoma. He presents to the office today for a follow up of his nephrolithiasis, renal cysts, and erectile dysfunction. In discussion with the patient today he reports compliance with daily dosing of tadalafil as ordered. He denies having had any bothersome urinary issues or concerns since his last office visit. Recent labs were reviewed with the patient today as noted and trended below: PSA: 11/25 0.3 Testosterone: 11/25 98, 06/25 154 Free testosterone: 06/25 46.0 SHB/25 8 Estradiol: 06/25 9 FSH: 06/25 125 LH: 06/25 4.7 Prolactin: 06/25 5.0 A1c: 04/25 6.6, 06/25 7.7 Recent renal imaging results reviewed with the patient today. 06/25 bilateral kidneys with normal parenchymal echotexture and thickness. Bilateral kidneys with no hydronephrosis or renal calculi. Bilateral renal cysts noted per radiology report. He continues to experience episodes of erectile dysfunction. However, he does feel low-dose Cialis has been helpful. We did discussed slight increase in testosterone however it does remain low. We did discussed further treatment options of hypogonadism to include stimulation testing verses initiation of testosterone verses surveillance monitoring. Risks and benefits of these interventions were discussed. We discussed correlation of hypogonadism and erectile dysfunction. When asked he denies urinary urgency, urinary freque ncy, incontinence, nocturia, hematuria, dysuria, foul smelling urine, changes to urinary stream, flank pain, fever, and or chills. He is happy with his current voiding parameters. We discussed at length the importance of management and diabetes for improvement in ED as well as overall health and well-being. He also discusses following up with his PCP and will soon be undergoing sleep study. He otherwise offers no issues or concerns at this time. [facility] Medical History Anemia of chronic disease GERD (gastroesophageal reflux disease) Dyslipidemia Tubular adenoma of colon Essential hypertension Peripheral polyneuropathy HIV (human immunodeficiency virus infection) Surgical History History of cardiac catheterization Family History Sister Diabetes Kidney problem Father Diabetes Mother Diabetes Brother Diabetes Kidney problem Heart problem Brother Diabetes Lymphoma Other Family history of arthritis Social History Household Members: Spouse Housing: Apartment Alcohol intake: former Patient Tobacco Use Status: Former Tobacco user service: No Current occupational status: disabled Review of Systems Const Reports as per HPI Eyes Reports no additional complaints ENT Reports no additional complaints Card Reports as per HPI Resp Reports no additional complaints GI Reports as per HPI Reports as per HPI Musc Reports as per HPI Neuro Reports as per HPI Psych Reports no additional complaints Endo Reports no additional complaints Misael/Lymph Details: Patient with a past medical history of Hodgkin's disease. Physical Exam Const General: cooperative, healthy appearing, comfortable, no acute distress, well developed, alert, awake and tired appearing Nutritional Appearance: overweight Orientation/consciousness: patient oriented x3 Limitations: language barrier HEENT Head: Yes normal to inspection, Yes normocephalic and Yes atraumatic Ears: hearing grossly normal bilaterally Eyes General: appearance normal, both eyes and all related structures Neck Neck: Yes normal visual inspection and Yes trachea midline Chest Chest palpation & inspection: normal inspection of the chest Resp Effort & Inspection: normal respiratory effort and able to speak in complete sentences Cardio Rate: regular rate GI Inspection: Yes normal to inspection General: Yes no CVA tenderness Back/Spine/Pelvis Back: no CVA tenderness Skin General skin exam: no rashes or lesions noted Neuro General: patient oriented x3 Extrem General: Yes normal to inspection Psych Appearance: grossly normal and well kempt Mental Status: mental status grossly normal Speech and movement: Normal speech and movement present and Clear speech present Affect: normal affect Attitude: cooperative Thought process: Normal thought process present Thought content: Normal thought content present Insight: Fair insight present (Psych) Judgement: Fair judgement present (Psych) Results AMB Urinalysis, Automated UA Leukoctes 0 Alex/uL Last Edit by REGINA Cheney on 07/26/25 08:55 UA Nitrite Negative Last Edit by REGINA Cheney on 07/26/25 08:55 UA Urobilinogen 0.2 mg/dL Last Edit by REGINA Cheney on 07/26/25 08:5 5 UA Protein 0 mg/dL Last Edit by REGINA Cheney on 07/26/25 08:55 UA pH 6.0 Last Edit by REGINA Cheney on 07/26/25 08:55 UA Blood 0 Eduardo/uL Last Edit by Raya Lynn [facility] on 07/26/25 08:55 UA Specific [place] 1.010 Last Edit by Raya Lynn [facility] on 07/26/25 08: 55 UA Ketone Positive Last Edit by Raya Lynn [facility] on 07/26/25 08:55 UA Bilirubin 0 mg/dL Last Edit by Raya Lynn [facility] on 07/26/25 08:55 UA Glucose 1000 mg/dL Last Edit by Raya Lynn [facility] on 07/26/25 08:55 Results Reviewed Results Reviewed: Laboratory Last Values Urine pH (Auto) 6.0 07/26/25 08:49 Specific [place] (Auto) 1.010 07/26/25 08:49 Urine Protein (Auto) 0 mg/dL 07/26/25 08:49 Glucose (UA)(Auto) 1000 mg/dL 07/26/25 08:49 Urine Ketones (Auto) Positive 07/26/25 08:49 Urine Blood (Auto) 0 Eduardo/uL 07/26/25 08:49 Urine Nitrite (Auto) Negative 07/26/25 08:49 Urine Bilirubin (Auto) 0 mg/dL 07/26/25 08:49 Urine Urobilinogen (Auto) 0.2 mg/dL 07/26/25 08:49 Leukocyte Esterase (Auto) 0 Alex/uL 07/26/25 08:49 Date of Service: 07/20/25 Procedure(s): US renal BI FINDINGS: Right kidney: The right kidney measures 10.5 x 6.8 x 7.2 cm. Renal parenchymal echotexture and thickness are normal. There is a 6 mm cyst at the lower pole and a 7 x 5 x 8 mm cyst in the interpolar region. There is no hydronephrosis or renal calculi. Left Kidney: The left kidney measures 14.9 x 6.5 x 6.4 cm. Renal parenchymal echotexture and thickness are normal. There is a 1.3 x 0.7 x 0.9 cm cyst at the lower pole and a 7 x 6 x 8 mm cyst in the interpolar region. There is no hydronephrosis or renal calculi. Incidental note is made of splenomegaly. IMPRESSION: 1. Bilateral renal cysts as described. No evidence of nephrolithiasis. 2. Splenomegaly. Assessment & Plan Assessment & Plan (1) Hypogonadism in male: Code(s): E29.1 - Testicular hypofunction Category: Medical (2) Nephrolithiasis: Code(s): N20.0 - Calculus of kidney Category: Medical (3) Renal cyst: Code(s): N28.1 - Cyst of kidney, acquired Category: Medical (4) Erectile dysfunction associated with type 2 diabetes mellitus: Code(s): E11.69 - Type 2 diabetes mellitus with other specified complication; N52.1 - Erectile dysfunction due to diseases classified elsewhere Category: Medical Plan In office urinalysis results reviewed with the patient today; as noted above. Recent renal imaging results reviewed with the patient today; as noted above. Recent labs reviewed with the patient today; as noted above. He currently denies any bothersome urinary issues or concerns. He reports be happy with current voiding parameters. We did discussed potential causes and treatment options of hypogonadism and risks and benefits of these treatment options. Information was provided. He would like to think about this. Will obtain testosterone in 3 months. Follow-up in 3 months with lab; or sooner with any issues, concerns, and or questions. Orders: Orders AMB Urinalysis Automated Today Z13.9 - Encounter for screening, unspecified Testosterone, Free/Total 3 Months E11.69 - Type 2 diabetes mellitus with other specified complication, E29.1 - Testicular hypofunction, N52.1 - Erectile dysfunction due to diseases classified elsewhere Lutenizing Hormone 3 Months E11.69 - Type 2 diabetes mellitus with other specified complication, E29.1 - Testicular hypofunction, N52.1 - Erectile dysfunction due to diseases classified elsewhere Hemoglobin A1c 3 Months E11.69 - Type 2 diabetes mellitus with other specified complication, E29.1 - Testicular hypofunction, N52.1 - Erectile dysfunction due to diseases classified elsewhere Patient Instructions: The patient had an opportunity to ask questions regarding the treatment plan. All questions were answered. Physical exam, labs, and imaging were discussed and reviewed in detail. As well as risks, benefits, and discussion of treatment choices. No major barriers to understanding were identified. The patient expressed understanding and agreement with the above treatment plan. The patient was made aware they should contact our office by phone for worsening of their current condition, the appearance of new symptoms, or with any questions or concerns. Compliance is encouraged with any medications and follow up testing that is ordered. It is a privilege to be allowed the opportunity to participate in? your urological care.? Again, if you have any questions or concerns If you have any questions or concerns please do not hesitate to contact me. The office is [phone]. This note is constructed using voice recognition software. While every effort has been made to ensure accuracy data reporting analyst errors may have been included. Yours sincerely, VERONICA Lee Coding Level of Care Code Est Pt Level 3 (18973) Complex EM visit Add On G2211 Diagnoses Hypogonadism in male E29.1 Nephrolithiasis N20.0 Renal cyst N28.1 Erectile dysfunction associated with type 2 diabetes mellitus E11.69; N52.1
--- OUTSIDE RECORDS SUMMARY | 2025-07-26 08:52 | XMS_ITS | Patient Health Record ---
Author Organization [facility] Address [address] [place] [address] Support Name Relationship Address Phone REZA HOLM Emergency Contact [address] [place], [place] [id number] PABLO GONZALEZ Guarantor Unknown Care Team Providers Care Prescription Clerk Lenses Name Role Phone Domo ESPINAL, Renetta Primary Care Provider Unavailabl e Rodríguez Shah Jr Unavailable [phone] GRACIE ANAYA M.D. Unavailable Unavailable Allergies Allergen (clinical drug ingredient) Drug/Non Drug Allergy documented on EMR Reaction Allergy Type Onset Date Status Iodine Unknown Drug Allergy Active Reason For Referral Referring Provider First Name Renetta Referring Provider Last Name Domo Referring Provider Speciality Internal M edicine Referred Organization [facility] Referred Provider Rodríguez Shah Jr Referred Address [address],[place], [place],[address], Referred Provider Specialty Gastroentero logy Referral Priority Routine Medications Medication SIG (Take, Route, Frequency, Duration) Notes Start Date End Date Status metFORMIN HCl ER Act sayra Ranitidine HCl 300 MG 1 capsule at bedti ok Orally Once a day for 30 days [...] Problem Status W/U Status Risk Notes Problem [id number] Gastro-esophagea l reflux disease without esophagitis (K21.9) Active confirmed Encounters Encounter Location Date Provider Diagnosis [facility] [address] [place] [address] 04/10/2025 Rodríguez Shah Jr Plan Of Treatment Pending Test Test Name Order Date XR GI SERIES 11/22/2014 Next Appt Details Provider Name:Rodríguez villegas Jr, 08/29/2025 09:40:00 AM, [address], [address], [place], [address], Insurance Providers Payer Name Payer Address Payer Phone Subscriber Number Group Number Insured Name Patient Relationship to Insured Coverage Start Date Coverage End Date [facility] [address] [place] [phone] [id number] PABLO MÉNDEZ Self - patient is the insured Medical (General) History Medical History History ICD Code asthma esophageal reflux human immunodeficiency virus (HIV), posi tive hypertension Denies CVA,renal disease ID [id number] glucose intolerance Surgical History Surgery Date(Month/Year) port for chemo
--- OUTSIDE RECORDS SUMMARY | 2025-07-26 08:52 | XMS_ITS | Clinical Summary ---
Author Organization [facility] Address [address] [place] [address] Care Team Providers Care Scheduling Analyst Name Role Phone Unknown, Provider MD Primary [...] COVID-19 Vaccine ( season) 2024 Care Teams Scheduling Analyst Relationship Specialty Start Date End Date Unknown, Provider, PCP - General 09/06/15
== END 2025-07-26 09:36 | disposition home or self-care (01) ==
LOC: HO.HUSH 08:24
PROVIDERS: PCP Family Medicine; Visit Provider Nurse Practitioner Family
DX: E29.1 Testicular hypofunction (principal); N20.0 Calculus of kidney; N28.1 Cyst of kidney, acquired; E11.69 Type 2 diabetes mellitus with other specified complication; N52.1 Erectile dysfunction due to diseases classified elsewhere; Z13.9 Encounter for screening, unspecified
CPT/HCPCS: 99213

== ENCOUNTER → 2025-07-26 08:23 | Outpatient (BNVA) | payer MEDICAID, SELFPAY | PROVIDERS: PCP Family Medicine; Visit Provider Nurse Practitioner Family | DX: E29.1 Testicular hypofunction (principal); N20.0 Calculus of kidney; N28.1 Cyst of kidney, acquired; E11.69 Type 2 diabetes mellitus with other specified complication; N52.1 Erectile dysfunction due to diseases classified elsewhere | CPT/HCPCS: 81003; 99212 ==

== ENCOUNTER 2025-08-15 09:02 | Outpatient (AMB) | payer MEDICAID, SELFPAY ==
--- OUTSIDE RECORDS SUMMARY | 2025-04-30 07:00 | XMS_ITS ---
Author Organization [facility] Address [address] [place] [address] Support Name Relationship Address Phone REZA HOLM Emergency Contact [address] [facility] [address] [place], [place] [phone] GONZALEZ, PABLO Guarantor Unknown [phone] Care Team Providers Care Residential Mortgage Manager Name Role Phone Domo ESPINAL, Renetta Primary Care Provider Unavailpati Shah Jr, Rodríguez Strong [phone] GRACIE ANAYA M.D. Unavailable REASON FOR VISIT discuss colonoscopy Encounters Encounter Location Date Provider Diagnosis [facility] [address] [place] [address] 04/30/2025 Rodríguez Shah Jr Plan Of Treatment Next Appt Details Provider Name:Rodríguez villegas Jr, 08/29/2025 09:40:00 AM, [address] [place] [address], [address], [place], [address], Progress Notes * GONZALEZ, PABLODOB:1964 (60 yo M)Acc No.[id number]:04/30/2025 Progress Notes Patient: PABLO BROWN Provider: Mya Shah MD :1965 A ge:59 Y S ex:Male Date:04/30/2025 Address:[address] [place] [address], [place], [place] Pcp:Renetta Oliveros MD Subjective: * Chief Complaints: [...] 0 04/30/2025 Generated for Sen rebolledo/José/Alverto on: 09:51 AM EDT
[2025-08-15 09:14] VITALS: BP 110/70; PULSE 95; O2SAT 89; BMI 32.6
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
--- OUTSIDE RECORDS SUMMARY | 2025-08-15 09:51 | XMS_ITS | Clinical Summary ---
Author Organization [facility] Address [address] [place] [address] Care Team Providers Care Car Storer Name Role Phone Unknown, Provider MD Primary [...] - 19+ 3-dose series) 07/17 COVID-19 Vaccine (2023- season) 2024 Care Teams Car Storer Relationship Specialty Start Date End Date Unknown, Provider, PCP - General 09/06/15
--- OUTSIDE RECORDS SUMMARY | 2025-08-15 09:51 | XMS_ITS | Patient Health Record ---
Author Organization [facility] Address [address] [place] [address] Support Name Relationship Address Phone REZA HOLM Emergency Contact [address] [facility] [place], [place] [id number] PABLO GONZALEZ Guarantor Unknown Care Team Providers Care Soap Press Feeder Name Role Phone Domo ESPINAL, Renetta Primary Care Provider Unavailabl e Rodríguez Shah Jr Unavailable GRACIE ANAYA M.D. Unavailable Unavailable Allergies Allergen (clinical drug ingredient) Drug/Non Drug Allergy documented on EMR Reaction Allergy Type Onset Date Status Iodine Unknown Drug Allergy Active Reason For Referral Referring Provider First Name Renetta Referring Provider Last Name Domo Referring Provider Speciality Internal M edicine Referred Organization [facility] Referred Provider Rodríguez Shah Jr Referred Address [address] [facility] [address] [facility],[place], [place],[address], Referred Provider Specialty Gastroentero logy Referral Priority Routine Medications Medication SIG (Take, Route, Frequency, Duration) Notes Start Date End Date Status metFORMIN HCl ER Act sarya Ranitidine HCl 300 MG 1 capsule at bedti ut Orally Once a day; Duration: 30 days 11/22/2014 Active Zofran 4 MG/5ML [...] Problem Status W/U Status Risk Notes Problem Gastro-esophagea l reflux disease without esophagitis (789468695) Gastro-esophage al reflux disease without esophagitis (K21.9) Active confirmed Encounters Encounter Location Date Provider Diagnosis [facility] [address] [place] [address] 04/10/2025 Rodríguez Shah Jr Plan Of Treatment Pending Test Test Name Order Date XR GI SERIES 11/22/2014 Next Appt Details Provider Name:Rodríguez villegas Jr, 08/29/2025 09:40:00 AM, [address] [place] [address], [address], [place], [address], Insurance Providers Payer Name Payer Address Payer Phone Subscriber Number Group Number Insured Name Patient Relationship to Insured Coverage Start Date Coverage End Date [facility]ICA[facility] [address] [place] [phone] [id number] PABLO MÉNDEZ Self - patient is the insured Medical (General) History Medical History History ICD Code asthma esophageal reflux human immunodeficiency virus (HIV), posi tive hypertension Denies CVA,renal disease [place] 2008 glucose intolerance Surgical History Surgery Date(Month/Year) port for chemo
== END 2025-08-15 10:05 | disposition home or self-care (01) ==
LOC: HO.HSMC 09:03
PROVIDERS: PCP Family Medicine; Visit Provider Physician Assistant Medical
DX: G47.33 Obstructive sleep apnea (adult) (pediatric) (principal); R51.9 Headache, unspecified; G25.81 Restless legs syndrome; G47.19 Other hypersomnia
CPT/HCPCS: 99214

== ENCOUNTER → 2025-08-15 09:02 | Outpatient (BNVA) | payer MEDICAID, SELFPAY | PROVIDERS: PCP Family Medicine; Visit Provider Physician Assistant Medical | DX: G47.33 Obstructive sleep apnea (adult) (pediatric) (principal); R51.9 Headache, unspecified; G25.81 Restless legs syndrome; G47.19 Other hypersomnia; Z99.89 Dependence on other enabling machines and devices; Z79.899 Other long term (current) drug therapy | CPT/HCPCS: 99212 ==

== ENCOUNTER 2025-08-27 20:40 | Emergency (ER) | payer MEDICAID, SELFPAY ==
--- OUTSIDE RECORDS SUMMARY | 2025-04-30 07:00 | XMS_ITS ---
Author Organization [facility] Address [address] [place] [address] Support Name Relationship Address Phone REZA HOLM Emergency Contact [address] [facility] [address] [place], [place] [phone] GONZALEZ, PABLO Guarantor Unknown Care Team Providers Care Applications Analyst Name Role Phone Domo ESPINAL, Renetta Primary Care Provider Unavailpati Shah Jr, Rodríguez Strong [phone] GRACIE ANAYA M.D. Unavailable REASON FOR VISIT discuss colonoscopy Encounters Encounter Location Date Provider Diagnosis [facility] [address] [facility] [address] [place] [address] 04/30/2025 Rodríguez Shah Jr Plan Of Treatment Next Appt Details Provider Name:Rodríguez villegas Jr, 08/29/2025 09:40:00 AM, [address] [place] [address], [address], [place], [address], Progress Notes * GONZALEZ PABLODOB:1964 (60 yo M)Acc No.[id number]:04/30/2025 Progress Notes Patient: PABLO BROWN Provider: Mya Shah MD :1965 A ge:59 Y S ex:Male Date:04/30/2025 Address:[address] [place] [address], [place], [place] Pcp:Renetta Oliveros MD Subjective: * Chief Complaints: [...] 04/30/2025 Generated for Sen rebolledo/José/Alverto on: 1 10:38 PM EDT
[2025-08-27 20:53] VITALS: BP 153/72; PULSE 89; RESP 18; TEMP 36.9; O2SAT 93; BMI 33.3
--- NOTE | 2025-08-27 21:20 | ECG_ITS ---
Test Reason : dizziness Blood Pressure : */* mmHG Vent. Rate : 87 BPM Atrial Rate : 87 BPM P-R Int : 178 ms QRS Dur : 92 ms QT Int : 354 ms P-R-T Axes : 47 34 58 degrees QTcB Int : 425 ms Normal sinus rhythm Normal ECG When compared with ECG of 28-Apr-2021 00:53, No significant change was found Referred By: Generic ED Physician Electronically Signed By: VERO GU
[2025-08-27 21:22] LABS: MANUAL DIFF FLAG NO
[2025-08-27 21:29] LABS: Hematocrit 43.1 % (42.0-52.0); Hemoglobin 13.9 g/dl (14.0-18.0); Imm Gran Abs Auto 0.02 X10*3/uL (0.00-0.03); Imm Gran Pct Auto 0.4 % (0.0-0.4); Lymphocytes Absolute Auto 1.8 X10*3/uL (1.2-4.9); Mean Corpuscular HGB Conc 32.3 g/dl (31.0-36.0); Mean Corpuscular Hemoglobin 31.4 pg (27.0-33.0); Mean Corpuscular Volume 97.3 fL (80.0-98.0); NRBC Abs Auto 0.000 X10*3/uL (0.0-0.012); NRBC Pct Auto 0.0 /100WBC (0.0-0.2); Platelet Count 146 X10*3/uL (160-400); Red Blood Count 4.43 X10*6/uL (4.60-5.80); White Blood Count 5.3 X10*3/uL (4.8-10.8)
[2025-08-27 21:39] LABS: Alanine Aminotransferase 64 U/L (0-40); Albumin Level 4.8 g/dL (3.5-5.0); Alkaline Phosphatase 106 U/L (39-117); Anion Gap 18 (12-20); Aspartate Amino Transferase 49 U/L (5-37); Blood Urea Nitrogen 21 mg/dL (9-16); Calcium 9.6 mg/dL (8.4-10.2); Carbon Dioxide 24 mmol/L (22-29); Chloride 104 mmol/L (96-108); Creatinine Clr Calc Pharmacy 104.9; Estimated Glomerular Filt Rate > 60; Magnesium 1.7 mg/dL (1.6-2.6); Potassium 4.2 mmol/L (3.3-5.1); Sodium 142 mmol/L (135-145); Total Protein 7.7 g/dL (6.5-8.0)
[2025-08-27 21:47] LABS: Troponin-I High Sensitivity < 2.7 ng/L (<3.5-35.0)
[2025-08-27 21:48] LABS: COVID-19 Test Negative (Negative); IDNOW Serial# 55D5AD1C; IDNOW Serial# 58CA691E; Influenza B2 Negative (Negative)
--- OUTSIDE RECORDS SUMMARY | 2025-08-27 22:39 | XMS_ITS | Patient Health Record ---
Author Organization [facility] Address [address] [place] [address] Support Name Relationship Address Phone REZA HOLM Emergency Contact [address] [facility] [address] [place], [place] [phone] PABLO GONZALEZ Guarantor Unknown [phone] Care Team Providers Care Safety Intern Name Role Phone Domo ESPINAL, Renetta Primary Care Provider Unavailabl e Rodríguez Shah Jr Unavailable GRACIE ANAYA M.D. Unavailable Unavailable Allergies Allergen (clinical drug ingredient) Drug/Non Drug Allergy documented on EMR Reaction Allergy Type Onset Date Status Iodine Unknown Drug Allergy Active Reason For Referral Referring Provider First Name Renetta Referring Provider Last Name Domo Referring Provider Speciality Internal M edicine Referred Organization [facility] Referred Provider Rodríguez Shah Jr Referred Address [address] [facility],[place], [place],[address], Referred Provider Specialty Gastroentero logy Referral Priority Routine Medications Medication SIG (Take, Route, Frequency, Duration) Notes Start Date End Date Status metFORMIN HCl ER Act sayra Ranitidine HCl 300 MG 1 capsule at bedti ks Orally Once a day; Duration: 30 days [...] Problem Gastro-esophagea l reflux disease without esophagitis (227793171) Gastro-esophage al reflux disease without esophagitis (K21.9) Active confirmed Encounters Encounter Location Date Provider Diagnosis [facility] [address] [place] [address] 04/10/2025 Rodríguez Shah Jr Plan Of Treatment Pending Test Test Name Order Date XR GI SERIES 11/22/2014 Next Appt Details Provider Name:Rodríguez villegas Jr, 08/29/2025 09:40:00 AM, [address] [place] [address], [address], [place], [address], Insurance Providers Payer Name Payer Address Payer Phone Subscriber Number Group Number Insured Name Patient Relationship to Insured Coverage Start Date Coverage End Date [facility]ICA[id number] [address] [place] [address] [id number] PABLO MÉNDEZ Self - patient is the insured Medical (General) History Medical History History ICD Code asthma esophageal reflux human immunodeficiency virus (HIV), posi tive hypertension Denies CVA,renal disease [place] 2008 glucose intolerance Surgical History Surgery Date(Month/Year) port for chemo
[2025-08-27 23:53] VITALS: BP 135/78; PULSE 84; RESP 16; TEMP 36.8; O2SAT 98
== END 2025-08-28 00:51 | disposition left against medical advice (07) ==
PROVIDERS: Emergency Provider Emergency Medicine; PCP Family Medicine
DX: R42 Dizziness and giddiness (principal); Z03.818 Encounter for observation for suspected exposure to other biological agents ruled out; Z53.21 Procedure and treatment not carried out due to patient leaving prior to being seen by health care provider
CPT/HCPCS: 80053; 83735; 84484; 85025; 87502; 87635; 93005; 99281; 99283

== ENCOUNTER → 2025-08-27 21:20 | Outpatient (BNV) | payer MEDICAID, SELFPAY | PROVIDERS: Emergency Provider Emergency Medicine; PCP Family Medicine; Visit Provider Internal Medicine | DX: R42 Dizziness and giddiness (principal) | CPT/HCPCS: 93010 ==

== ENCOUNTER 2025-08-29 13:15 | Emergency (ER) | payer MEDICAID, SELFPAY ==
--- OUTSIDE RECORDS SUMMARY | 2025-04-30 07:00 | XMS_ITS ---
Author Organization [facility] Address [address] [place] [address] Care Team Providers Care Medical Editor Name Role Phone Domo ESPINAL, Renetta Primary Care Provider Rodríguez Ma Jr REASON FOR VISIT discuss colonoscopy Encounters Encounter Location Date Provider Diagnosis [facility] [address] [place] [phone] 04/30/2025 Rodríguez Shah Jr Plan Of Treatment Next Appt Details Provider Name:Rodríguez villegas Jr, 10/05/2025 09:50:00 AM, [address] [place] [address], [phone], Progress Notes * GONZALEZYOUSIF SCOTTSIDDOB:1964 (60 yo M)Acc No.[id number]:04/30/2025 Progress Notes Patient: PABLO BROWN Provider: Mya Shah MD :1965 A ge:59 Y S ex:Male Date:04/30/2025 Address:[address] [place] [address], [place] Pcp:Renetta Oliveros MD Subjective: * Chief Complaints: [...] 0 04/30/2025 Generated for Sen rebolledo/José/Alverto on: 11:25 AM EDT
--- NOTE | ~2025-08-29 | CT_ITS ---
CLINICAL HISTORY: Headache, dizziness. CT head without contrast Comparison: None provided Findings: No intra-axial mass, midline shift, hydrocephalus, or acute hemorrhage. No significant atrophy. 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 Nonspecific supratentorial white matter hypodensities most suggestive of chronic small-vessel ischemic changes. There is no sinus or mastoid fluid. Mucosal thickening in right maxillary sinus. The orbits are within normal limits. There appears to be bilateral proptosis. No acute skull fracture. IMPRESSION: 1. No acute intracranial findings. 2. Nonacute findings as described. This document has been electronically signed by: Jeanine Che MD on 08/29/2025 17:53:15
--- NOTE | ~2025-08-29 | XR_ITS ---
EXAMINATION: XR CHEST CLINICAL INFORMATION: chest pain COMPARISON: None available. TECHNIQUE: 2 views of the chest were obtained. FINDINGS: Vague somewhat nodular density is present in the left lower lung zone on the frontal view, not clearly confirmed on the lateral view. Lungs are clear otherwise. Heart size is within normal limits. There is no sign of a pleural effusion. XR/XR chest 2V IMPRESSION: Questionable left basilar density, pneumonia not ruled out. Electronically signed by: Ronald Mcgill MD 08/29/2025 02:09 PM EDT
--- OUTSIDE RECORDS SUMMARY | 2025-08-29 05:40 | XMS_ITS ---
Author Organization [facility] Address [address] [place] [address] Support Name Relationship Address Phone REZA HOLM Emergency Contact [address] [place], [place] [id number] PABLO GONZALEZ Guarantor Unknown [phone] Care Team Providers Care Barrel Reamer Name Role Phone Domo ESPINAL, Renetta Primary Care Provider Rodríguez Ma Jr [phone] Allergies Allergen (clinical drug ingredient) Drug/Non Drug Allergy documented on EMR Reaction Allergy Type Onset Date Status Iodine Unknown Drug Allergy Active REASON FOR VISIT Patients presents today for discuss colonoscopy Medications Medication SIG (Take, Route, Frequency, Duration) Notes Start Date End Date Status Prazosin HCl 2 MG 1 capsule at bedtime Orally Once a day; Duration: 30 day(s) 08/29/2025 Active Topiramate 25 MG 1 tablet Orally Once a day; Duration: 30 day(s) 08/29/2025 Active Synjardy XR 12.5-1000 MG 1 tablet with b reakfast Orally Once a day; Duration: 30 day(s) 08/29/2025 Active Ondansetron Not-Taki ng Dexamethasone Not-Ta haley Pioglitazone HCl 15 MG 1 tablet Orally O nce a day; Duration: 30 day(s) 08/29/2025 Active Biktarvy 50-200-25 MG TAKE 1 TABLET BY M OUTH AT BEDTIME Oral; Duration: 30 Days Active Carvedilol 3.125 MG TAKE 1 TABLET BY LIYAH TH TWICE DAILY IN THE MORNING AND IN THE EVENING Oral; Duration: 90 Days Active Olmesartan Medoxomil 5 MG as directed Orally 08/29 Active Gabapentin 300 MG TAKE 1 CAPSULE BY MO UTH THREE TIMES DAILY IN THE MORNING, EVENING, AND BEDTIME Oral; Duration: 30 Days Active Divalproex Sodium Ac tive traZODone HCl Active Claritin Active Ferrous Sulfate Acti ve SUMAtriptan Succinate 25 MG TAKE 1 TABLET BY MOUTH AT ONSET OF MIGRAINE. MAY REPEAT ONCE AFTER 2 HOURS IF NEEDED, DO NOT EXCEED 4 TABLETS / 24 HOURS Oral; Duration: 15 Days Active Epzicom Active metFORMIN HCl ER Act sayra Zofran 4 MG/5ML 10 ml Orally Once a day Active Lisinopril 5 MG 1 tablet Orally Once a day Active Ranitidine HCl 300 MG 1 capsule at bedti me Orally Once a day; Duration: 30 days 11/22/2014 Active Albuterol Sulfate (2.5 MG/3ML) 0.083% 3 ml Inhalation Three times a day Active Fish Oil 1000 MG 1 capsule Orally Onc e a day Active Complera 200-25-300 MG 1 tablet with a m eal Orally Once a day Active Loratadine 10 MG 1 tablet Orally Once a day Active Aspir-81 81 MG 1 tablet Orally Once a day Active Allopurinol 300 MG 1 tablet Orally Once a day Active Atorvastatin Calcium 80 MG 1 tablet Orally Once a day Active ProAir HFA 108 (90 Base) MCG/ACT 2 puffs as needed Inhalation every 4 hrs Active Vitamin B6 Active Tadalafil 5 MG 1 tablet as needed Orally Once a day Active Mounjaro 2.5 MG/0.5ML as directed Subcutaneous Active Vitamin D3 Active Problems Problem Type SNOMED Code ICD Code Onset Dates Problem Status W/U Status Risk Notes Problem Screening for malignant neoplasm of colon (905736520) Encounter for screening for malignant neoplasm of colon (Z12.11) Active confirmed Problem Fatty liver (890153478) Fatty liver (K76.0) Active confirmed Vital Signs Temperature 96.7 degrees Fahrenheit 08/29/20 25 Blood pressure systolic 001 mm Hg 08/29/20 25 Blood pressure diastolic 01 mm Hg 025 Height 70.5 in 08/29/2025 Weight 235.4 lbs 08/29/2025 BMI 33.3 kg/m2 08/29/2025 Encounters Encounter Location Date Provider Diagnosis [facility] [address] [facility] [address] [place] [address] 08/29/2025 Rodríguez Shah Jr Encounter for screening for malignant neoplasm of colon Z12.11 and Fatty liver K76.0 Assessments Encounter Date Diagnosis (ICD Code) Assessment Notes Treatment Notes Treatment Clinical Notes Section Notes 08/29/2025 Encounter for screening for malignant neoplasm of colon (ICD-10 - Z12.11) We discussed fatty liver today. We discussed diet, lifestyle modifications, and weight management regarding treatment of elevated liver function test. He is advised to stop oral hypoglycemics 1 to 3 days before the procedure for his colonoscopy, GLP-1's 1 week before the procedure as well as fish oil and aspirin. Follow-up will be pending the results of his colonoscopy. He is aware of risks and benefits and agrees to proceed. 08/29/2025 Fatty liver (ICD-10 - K76.0) We discussed fatty liver today. We discussed diet, lifestyle modifications, and weight management regarding treatment of elevated liver function test. He is advised to stop oral hypoglycemics 1 to 3 days before the procedure for his colonoscopy, GLP-1's 1 week before the procedure as well as fish oil and aspirin. Follow-up will be pending the results of his colonoscopy. He is aware of risks and benefits and agrees to proceed. Plan Of Treatment Future Test Test Name Order Date COLONOSCOPY 08/29/2025 Next Appt Details Follow Up: 1 Year, Reason: Provider Name:Rodríguez villegas , 10/05/2025 09:50:00 AM, [address] [place] [address], [phone], Progress Notes * YOUSIF GONZALEZSIDDOB:1964 (60 yo M)Acc No.[id number]:08/29/2025 Progress Notes Patient: PABLO BROWN Provider: Mya Shah MD :1965 A ge:60 Y S ex:Male Date:08/29/2025 Address:[address] [place], [place] [phone] Pcp:Renetta Oliveros MD Subjective: * Chief Complaints: * 1 . Patients presents today for discuss colonoscopy. * HPI: N ew symptom(s): The patient is a pleasant 60-year-old man seen today in consultation. He has a history of nonalcoholic steatohepatitis and tubular adenomas. He does not drink alcohol. He has no complaints of jaundice, dysphagia,, pruritus, or fatigue. Weight and appetite have been stable.Records from his procedure are not available but will be obtained. Records that are reviewed include an ultrasound of the liver from March of this year with elastography. Changes were consistent with fatty liver. Elastography was unreliable due to a poor quality data set. Laboratory studies showed mild elevations of the LFTs with an AST of 67 and ALT of 66 on August 29, 2025. We reviewed this today. He has no complaints of rectal bleeding or change in his bowel habits.Records from his procedure are not available but will be obtained. Records that are reviewed include an ultrasound of the liver from March of this year with elastography. Changes were consistent with fatty liver. Elastography was unreliable due to a poor quality data set. Laboratory studies showed mild elevations of the LFTs with an AST of 67 and ALT of 66 on August 29, 2025. We reviewed this today. He has no complaints of rectal bleeding or change in his bowel habits.Records from his procedure are not available but will be obtained. Records that are reviewed include an ultrasound of the liver from March of this year with elastography. Changes were consistent with fatty liver. Elastography was unreliable due to a poor quality data set. Laboratory studies showed mild elevations of the LFTs with an AST of 67 and ALT of 66 on August 29, 2025. We reviewed this today. He has no complaints of rectal bleeding or change in his bowel habits. * ROS: G eneral/Constitutional: Change in appetite d enies. F atigue d enies. ? E NT: Patient denies d ifficulty swallowing. R espiratory: Patient denies s hortness of breath. C ardiovascular: Patient denies c hest pain. G astrointestinal: Comments S [facility] for details. G enitourinary: Difficulty urinating d enies. I ncontinence d enies. M usculoskeletal: Patient denies m uscle aches. S kin: Patient denies p ruritis. N eurologic: Patient denies l ow back pain. P sychiatric: Patient denies m ental or physical abuse. * Medical History: A sthma, Esophageal reflux, human immunodeficiency virus (HIV), positive, Hypertension, [place] 2008, Glucose intolerance. * Surgical History: p ort for chemo . * Family History: F ather: , diagnosed with HTN (hypertension), Heart disease, Diabetes. M other: , diagnosed with HTN (hypertension), Heart disease, Diabetes. M aternal Grand Father: . brother lymphoma living Patient doesnt know family history. * Social History: T obacco Use: T obacco Use/Smoking A re you a: former smoker , How long has it been since you last smoked?: 5-10 years. D rugs/Alcohol: A lcohol Screen P oints: 0, Interpretation: Negative. M iscellaneous: M arital status: . Occupation: unemployed. * Medications: T aking Mounjaro 2.5 MG/0.5ML Solution Auto-injector as directed Subcutaneous , Taking Vitamin D3 , Taking Vitamin B6 , Taking Tadalafil 5 MG Tablet 1 tablet as needed Orally Once a day , Taking Atorvastatin Calcium 80 MG Tablet 1 tablet Orally Once a day , Taking Allopurinol 300 MG Tablet 1 tablet Orally Once a day , Taking ProAir HFA 108 (90 Base) MCG/ACT Aerosol Solution 2 puffs as needed Inhalation every 4 hrs , Taking Albuterol Sulfate (2.5 MG/3ML) 0.083% Nebulization Solution 3 ml Inhalation Three times a day , Taking Complera 200-25-300 MG Tablet 1 tablet with a meal Orally Once a day , Taking Fish Oil 1000 MG Capsule 1 capsule Orally Once a day , Taking Aspir-81 81 MG Tablet Delayed Release 1 tablet Orally Once a day , Taking Loratadine 10 MG Tablet 1 tablet Orally Once a day , Taking Lisinopril 5 MG Tablet 1 tablet Orally Once a day , Taking Zofran 4 MG/5ML Solution 10 ml Orally Once a day , Taking Ranitidine HCl 300 MG Capsule 1 capsule at bedtime Orally Once a day , Taking metFORMIN HCl ER , Taking Epzicom , Taking traZODone HCl , Taking Divalproex Sodium , Taking Ferrous Sulfate , Taking Claritin , Taking SUMAtriptan Succinate 25 MG Tablet TAKE 1 TABLET BY MOUTH AT ONSET OF MIGRAINE. MAY REPEAT ONCE AFTER 2 HOURS IF NEEDED, DO NOT EXCEED 4 TABLETS / 24 HOURS Oral , Taking Biktarvy 50-200-25 MG Tablet TAKE 1 TABLET BY MOUTH AT BEDTIME Oral , Taking Carvedilol 3.125 MG Tablet TAKE 1 TABLET BY MOUTH TWICE DAILY IN THE MORNING AND IN THE EVENING Oral , Taking Gabapentin 300 MG Capsule TAKE 1 CAPSULE BY MOUTH THREE TIMES DAILY IN THE MORNING, EVENING, AND BEDTIME Oral , Taking Olmesartan Medoxomil 5 MG Tablet as directed Orally , Taking Pioglitazone HCl 15 MG Tablet 1 tablet Orally Once a day , Taking Prazosin HCl 2 MG Capsule 1 capsule at bedtime Orally Once a day , Taking Synjardy XR 12.5-1000 MG Tablet Extended Release 24 Hour 1 tablet with breakfast Orally Once a day , Taking Topiramate 25 MG Tablet 1 tablet Orally Once a day , Not-Taking/PRN Dexamethasone , Not-Taking/PRN Ondansetron , Medication List reviewed and reconciled with the patient * Allergies: I odine. Objective: * Vitals: W t:235.4lbs, Ht: 70.5 in, BMI:33.3Index, BP:001/01mm Hg, Temp:96.7, Wt-k.78. * Examination: G eneral Examination: GENERAL APPEARANCE: i n no acute distress. HEAD: n ormocephalic. EYES: s clera non-icteric. ORAL CAVITY: m ucosa moist. NECK/THYROID: n o lymphadenopathy. SKIN: a nicteric. HEART: S 1, S2 normal, no murmurs. LUNGS: c lear to auscultation bilaterally. CHEST: n ormal shape and expansion. ABDOMEN: s oft, nontender, nondistended, bowel sounds present, no organomegaly . EXTREMITIES: n o clubbing, cyanosis, or edema. PSYCH: c ognitive function intact. Assessment: * Assessment: 1. F atty liver - K76.0 (Primary) 2 . E ncounter for screening for malignant neoplasm of colon - Z12.11 We discussed fatty liver tod ay. We discussed diet, lifestyle modifications, and weight management regarding treatment of elevated liver function test. He is advised to stop oral hypoglycemics 1 to 3 days before the procedure for his colonoscopy, GLP-1's 1 week before the procedure as well as fish oil and aspirin. Follow-up will be pending the results of his colonoscopy. He is aware of risks and benefits and agrees to proceed. Plan: * Treatment: * Procedure Codes: G 9903 Pt scrn tbco id as non user, G9744 PATIENT NOT ELIG D/T ACTIVE DX HTN * Preventive Medicine: Counseling: C are goal follow-up plan: A irene Normal BMI Follow-up D ietary management education, guidance, and counseling, B GA management provided Y es. * Follow Up: 1 Year * * Sign off status: Completed true * Provider: Mya Shah MD Date: Generated for Sen rebolledo/José/Nabilasmitting on: 07:51 PM EDT History and Physical Notes * HPI (History of Present Illness) Category Sub-Category Detail Notes Category Not es New symptom(s) The patient is a pleasant 60-year-old man seen today in consultation. He has a history of nonalcoholic steatohepatitis and tubular adenomas. He does not drink alcohol. He has no complaints of jaundice, dysphagia,, pruritus, or fatigue. Weight and appetite have been stable.Records from his procedure are not available but will be obtained. Records that are reviewed include an ultrasound of the liver from March of this year with elastography. Changes were consistent with fatty liver. Elastography was unreliable due to a poor quality data set. Laboratory studies showed mild elevations of the LFTs with an AST of 67 and ALT of 66 on August 29, 2025. We reviewed this today. He has no complaints of rectal bleeding or change in his bowel habits.Records from his procedure are not available but will be obtained. Records that are reviewed include an ultrasound of the liver from March of this year with elastography. Changes were consistent with fatty liver. Elastography was unreliable due to a poor quality data set. Laboratory studies showed mild elevations of the LFTs with an AST of 67 and ALT of 66 on August 29, 2025. We reviewed this today. He has no complaints of rectal bleeding or change in his bowel habits.Records from his procedure are not available but will be obtained. Records that are reviewed include an ultrasound of the liver from March of this year with elastography. Changes were consistent with fatty liver. Elastography was unreliable due to a poor quality data set. Laboratory studies showed mild elevations of the LFTs with an AST of 67 and ALT of 66 on August 29, 2025. We reviewed this today. He has no complaints of rectal bleeding or change in his bowel habits. Examination Category Sub-Category Detail Notes Category Not es General Examination GENERAL APPEARANCE: in no acute di stress HEAD: normocephalic EYES: sclera non-icteric NECK/THYROID: no lymphadenopathy HEART: S1, S2 normal, no mu rmurs CHEST: normal shape and exp ansion LUNGS: clear to auscultatio n bilaterally ABDOMEN: soft, nontender, non distended, bowel sounds present, no organomegaly SKIN: anicteric EXTREMITIES: no clubbing, cyanosi s, or edema PSYCH: cognitive function i ntact ORAL CAVITY: mucosa moist
--- NOTE | 2025-08-29 13:17 | ECG_ITS ---
Test Reason : CP Blood Pressure : */* mmHG Vent. Rate : 81 BPM Atrial Rate : 81 BPM P-R Int : 166 ms QRS Dur : 88 ms QT Int : 376 ms P-R-T Axes : 39 12 54 degrees QTcB Int : 436 ms Normal sinus rhythm Normal ECG When compared with ECG of 27-Aug-2025 21:27, No significant change was found Referred By: Generic ED Physician Electronically Signed By: VERO GU
[2025-08-29 13:24] VITALS: BP 135/84; PULSE 82; RESP 19; TEMP 36.6; O2SAT 96; BMI 32.1
--- NOTE | 2025-08-29 13:24 | ED.GENADULT ---
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 Wing HPI narrative: 60-year-old male came in with his for evaluation of multiple symptoms started all since last week, patient been having headache, feeling dizzy (room spinning around), patient also been complaining of intermittent chest pain with no radiation localized to the mid chest, no recent travel, no recent prolonged immobilization, patient was seen in the emergency department 2 days ago and blood workup was checked patient did not wait till seen by a provider in the ED. Returned today for persistent of his symptoms. Currently complaining of mid chest pain described as mild localized to the mid chest without radiation no other associated symptoms, feeling mild dizziness as room spinning but able to walk steady in the emergency department with no neurological deficit. Related Data Home Medications ?Medication ?Instructions ?Recorded ?Confirmed alcohol swabs (Alcohol Prep Pads) 1 pad topical BID 04/13/22 07/26/25 allopurinol 300 mg tablet 1 tab PO QAM 04/13/22 07/26/25 aspirin 81 mg tablet,delayed 1 tab PO QAM 04/13/22 07/26/25 release atorvastatin 80 mg tablet 1 tab PO QPM 04/13/22 07/26/25 blood sugar diagnostic (FreeStyle 04/13/22 07/26/25 Lite Strips) carvedilol 3.125 mg tablet 1 tab PO BID 04/13/22 07/26/25 gabapentin 300 mg capsule 1 cap PO TID pain 04/13/22 07/26/25 lancets 33 gauge (TRUEplus Lancets) 04/13/22 07/26/25 sitagliptin phosphate 100 mg 100 mg PO QAM 03/12/23 07/26/25 tablet (Januvia) bictegravir 50 mg-emtricitabine 1 tab PO BEDTIME 04/13/23 07/26/25 200 mg-tenofovir alafenam 25 mg tablet (Biktarvy) cholecalciferol (vitamin D3) 25 25 mcg PO QAM 04/13/23 07/26/25 mcg (1,000 unit) tablet divalproex 500 mg tablet,extended 500 mg PO BEDTIME 05/14/23 07/26/25 release 24 hr prazosin 2 mg capsule 4 mg PO BEDTIME 05/14/23 07/26/25 trazodone 150 mg tablet 100 mg PO BEDTIME 05/14/23 07/26/25 empagliflozin 5 mg-metformin ER 1 tab PO DAILY 03/20/25 07/26/25 1,000 mg tablet,extended release 24 hr (Synjardy XR) bictegravir 50 mg-emtricitabine tab PO 05/18/25 07/26/25 200 mg-tenofovir alafenam 25 mg tablet (Biktarvy) olmesartan 5 mg tablet mg 05/18/25 07/26/25 erythromycin 5 mg/gram (0.5 %) eye 1 appl ophthalmic (eye) DAILY 07/26/25 07/26/25 ointment pioglitazone 15 mg tablet 15 mg PO DAILY 07/26/25 07/26/25 Previous Rx's ?Medication ?Instructions ?Recorded omeprazole 20 mg capsule,delayed 20 mg PO DAILY #90 caps 05/31/23 release tadalafil 5 mg tablet (Cialis) 5 mg PO DAILY 90 days #90 tabs 03/20/25 pyridoxine (vitamin B6) 100 mg 100 mg PO DAILY 90 days #90 tabs 05/16/25 tablet sumatriptan succinate 25 mg tablet See Rx Instructions PO .COMPLEX 08/15/25 bilateral headaches 1 month #12 tabs topiramate 25 mg capsule,extended 25 mg PO DAILY headaches 3 months 08/15/25 release 24 hr #90 caps meclizine 25 mg tablet 25 mg PO BID PRN motion sickness 08/29/25 #14 tabs Allergies Allergy/AdvReac Type Severity Reaction Status Date / Time iodine (IODINE) Allergy Unknown DIFFICULTY Verified 08/29/25 13:26 BREATHING SEAFOOD Allergy Unknown ANAPHYLAXIS Uncoded 08/27/25 20:54 Review of Systems Review of Systems: All other systems are reviewed and are negative Constitutional: Reports as per HPI and Reports no additional constitutional complaints Eyes: Reports as per HPI and Reports no additional eye complaints Reports system reviewed and no additional complaints, except as documented Cardiovascular: Reports as per HPI and Reports no additional cardiovascular complaints Respiratory: Reports as per HPI and Reports no additional respiratory complaints Gastrointestinal: Reports as per HPI and Reports no additional gastrointestinal complaints Genitourinary: Reports no additional female genitourinary complaints Musculoskeletal: Reports no additional musculoskeletal complaints Skin/Breast: Reports system reviewed and no additional complaints, except as docu Psychiatric: Reports no additional psychiatric complaints Endocrine: Reports no additional endocrine complaints Hematologic/Lymphatic: Reports no additional hematologic/lymphatic complaints Allergic/Immunologic: Reports no additional allergic/immunologic complaints Reports system reviewed and no additional complaints, except as documented and Reports Abnormal speech present [facility] Past Medical History Medical History Anemia of chronic disease GERD (gastroesophageal reflux disease) Dyslipidemia Tubular adenoma of colon Essential hypertension Peripheral polyneuropathy HIV (human immunodeficiency virus infection) Surgical History History of cardiac catheterization Family History Family History Sister Diabetes Kidney problem Father Diabetes Mother Diabetes Brother Diabetes Kidney problem Heart problem Brother Diabetes Lymphoma Other Family history of arthritis Social History Social History Household Members: Spouse Housing: Apartment Alcohol intake: former Patient Tobacco Use Status: Former Tobacco user Smoked in Last 30 Days: No Use of substances other than those prescribed or required for medical reasons: No Advance Directives: No Advance Directives Information Provided: No service: No Current occupational status: disabled Physical Exam ED Vital Signs: Vital Signs - 24 hr 08/29/25 13:24 08/29/25 16:31 Temperature 97.8 F Pulse Rate 82 93 Respiratory Rate 19 18 Blood Pressure 135/84 129/75 Pulse Oximetry 96 92 Oxygen Delivery Method Room Air Room Air BMI result Body Mass Index 32.1 Vital signs have been reviewed and appear to be correct. Blood pressure elevated. Heart rate normal. Respiratory rate normal. Temperature normal. Oxygen saturation normal. Appearance: Alert. Oriented X3. No acute distress. Head: Normal external exam. Normocephalic. Atraumatic. No Dozier signs noted. No raccoon eyes noted Eyes: PERRLA. EOMI. Conjunctiva and sclera normal. Eyelids normal. ENT: TM's Normal. Pharynx normal. Uvula midline. Moist mucous membranes. No trismus noted. No drooling noted. No muffled voice noted. Neck: Normal inspection. Neck supple. FROM. No adenopathy. Thyroid Normal. No meningeal signs. No neck mass noted. CVS: Normal heart rate and rhythm. Heart sound normal. No murmurs noted. Pulses normal throughout. Respiratory: No respiratory distress. Painless inspiration. Breath sounds normal. No wheezes/rales/rhonchi noted. Chest nontender. No accessory muscle usage noted or decreased air movement noted. Abdomen: Soft and nontender. Bowel sounds normal in all 4 quadrants. No distention noted. No organomegaly noted. No visible injury noted. Back: No CVA tenderness. Full range of motion noted. Skin: Skin warm and dry. Normal skin color. Normal skin turgor. No rashes/lesions/lacerations noted. Extremities: No lower extremity edema. Extremities exhibit normal range of motion. Extremities nontender. Neuro: Mental status: Normal attention, orientation, memory, and affect. Cranial nerves: Pupils are equal, round and reactive to light, EOMI, visual kulkarni are fall, face is symmetric, facial sensations are normal. Motor examination normal muscle tone, strength to 4 extremities. DTR are +2, planter's are flexor. Sensory exam; normal coordination, no ataxia, gait stable. Cerebellar exam: [id number]-[id number] and jnql-uu-ldki is normal. Extrapyramidal system: No tremors, no rigidity with normal facial expressions. Pronator drift not present Course Course Course Narrative: 60 yo male presented to ED for shortness of breath and chest pain. He has been sick recently with headaches, fatigue and nausea. Seen at urgent care and was sent to ED for further evaluation. Rapid medical screening exam was performed. Patient stable at time of evaluation. Nella De Souza, DO 08/29/25 1324 Reevaluation(s) Reevaluation #1: Chest pain with negative troponin x2. Stable vital sign, negative D-dimer. Normal neuro exam, normal head CT, no neuro deficit. Time: 18:00 Medications Administered Discontinued Medications Generic Name Dose Route Start Last Admin Trade Name Freq PRN Reason Stop Dose Admin Meclizine HCl 25 mg 08/29/25 16:18 08/29/25 16:30 Meclizine Hcl 25 Mg Tablet PO 08/29/25 16:19 25 mg ONCE ONE Administration Medical Decision Making Differential Diagnosis Differential Diagnoses: The differential diagnosis associated with the presentation includes (Cerebellar stroke, peripheral vertigo, ACS, pulmonary embolism, pneumonia, pneumothorax, pleural effusion.) Admission/Observation Consideration of admission/observation: Escalation of care including admission/observation considered Lab Data MDM Lab Attestation statement: I reviewed the patient's lab results. 08/29/25 14:22 08/29/25 14:22 Labs: Lab Results 08/29/25 08/29/25 Range/Units 14:22 16:35 WBC 4.8 (4.8-10.8) X10*3/uL RBC 4.54 L (4.60-5.80) X10*6/uL Hgb 14.3 (14.0-18.0) g/dl Hct 44.0 (42.0-52.0) % MCV 96.9 (80.0-98.0) fL MCH 31.5 (27.0-33.0) pg MCHC 32.5 (31.0-36.0) g/dl RDW 12.3 (11.0-16.0) % Plt Count 146 L (160-400) X10*3/uL MPV 9.5 (9.4-12.4) fL Immature Gran % (Auto) 0.4 (0.0-0.4) % Neut % (Auto) 53.6 (45-73) % Lymph % (Auto) 37.7 (20-40) % Boundary % (Auto) 5.8 (2-11) % Eos % (Auto) 2.1 (0-4) % Baso % (Auto) 0.4 (0-2) % Lymph # (Auto) 1.8 (1.2-4.9) X10*3/uL Boundary # (Auto) 0.3 (0.1-1.2) X10*3/uL Eos # (Auto) 0.1 (0.0-0.4) X10*3/uL Baso # (Auto) 0.0 (0.0-0.2) X10*3/uL Abs Immat Gran (auto) 0.02 (0.00-0.03) X10*3/uL Absolute Neuts (auto) 2.6 (2.0-8.3) x10*3/uL Absolute Nucleated RBC 0.000 (0.0-0.012) X10*3/uL Nucleated RBC % (auto) 0.0 (0.0-0.2) /100WBC D-Dimer High Sensitivty 162 NG/ML Sodium 141 (135-145) mmol/L Potassium 4.2 (3.3-5.1) mmol/L Chloride 102 (96-108) mmol/L Carbon Dioxide 30 H (22-29) mmol/L Anion Gap 13 (12-20) BUN 19 H (9-16) mg/dL Creatinine 0.89 (0.5-1.4) mg/dL Estim Creat Clear Calc 111.3 Estimated GFR > 60 Random Glucose 150 H (60-115) mg/dL Calcium 10.0 (8.4-10.2) mg/dL Magnesium 1.9 (1.6-2.6) mg/dL Total Bilirubin 0.8 (0.0-1.0) mg/dL AST 67 H (5-37) U/L ALT 66 H (0-40) U/L Alkaline Phosphatase 92 (39-117) U/L Troponin I High Sens < 2.7 < 2.7 (<3.5-35.0) ng/L Total Protein 7.9 (6.5-8.0) g/dL Albumin 5.0 (3.5-5.0) g/dL COVID-19 (LAYLA) Negative (Negative) COVID-19 Clin Com See Note Influenza Type A (RICH) Negative (Negative) Influenza Type B (RICH) Negative (Negative) Influenza A & B Note See Note Independent Interpretation I performed an independent interpretation of an: Plain X-Ray (Chest: No acute intrathoracic pathology.) and CT Scan (Head: No acute intrathoracic pathology.) Radiology Impression Discussion of test interpretation with radiology: I have reviewed the radiologist's reading. Discharge Plan Discharge Clinical Impression: Chest pain, Dizziness Patient Disposition: Home, Self-Care Instructions: Chest Pain (ED), Vertigo (ED) Prescriptions: New meclizine 25 mg tablet 25 mg PO BID PRN (Reason: motion sickness) Qty: 14 0RF No Action omeprazole 20 mg Capsule,Delayed Release(Dr/Ec) 20 mg PO DAILY Qty: 90 3RF pyridoxine (vitamin B6) 100 mg tablet 100 mg PO DAILY 90 Days Qty: 90 3RF atorvastatin 80 mg tablet 1 tab PO QPM (DME) FreeStyle Lite Strips Strip MISCELLANEOUS aspirin 81 mg tablet,delayed release (DR/EC) 1 tab PO QAM carvedilol 3.125 mg tablet 1 tab PO BID gabapentin 300 mg capsule 1 cap PO TID allopurinol 300 mg tablet 1 tab PO QAM alcohol swabs [Alcohol Prep Pads] Pads, Medicated 1 pad TOPICAL BID (DME) lancets [TRUEplus Lancets] 33 gauge misc MISCELLANEOUS Biktarvy 50-200-25 mg Tablet PO olmesartan 5 mg Tablet Januvia 100 mg tablet 100 mg PO QAM Biktarvy 50-200-25 mg tablet 1 tab PO BEDTIME cholecalciferol (vitamin D3) 25 mcg (1,000 unit) tablet 25 mcg PO QAM pioglitazone 15 mg tablet 15 mg PO DAILY erythromycin 5 mg/gram (0.5 %) ointment 1 appl ophthalmic (eye) DAILY prazosin 2 mg capsule 4 mg PO BEDTIME divalproex 500 mg tablet extended release 24 hr 500 mg PO BEDTIME trazodone 150 mg tablet 100 mg PO BEDTIME Synjardy XR 5-1,000 mg tablet, IR - ER, biphasic 24hr 1 tab PO DAILY tadalafil [Cialis] 5 mg tablet 5 mg PO DAILY 90 Days Qty: 90 1RF Rx Instructions: [id number] [facility] [id number] Member [id number] sumatriptan succinate 25 mg tablet See Rx Instructions PO .COMPLEX MDD 100mg 30 Days Qty: 12 0RF Rx Instructions: take 1 tab at onset of headache; if no relief may repeat 1 tab after at least 2 hrs; max = 4 tabs/24 hr orally; topiramate 25 mg capsule,extended release 24hr 25 mg PO DAILY MDD 25mg 90 Days Qty: 90 0RF Rx Instructions: take one tablet by mouth daily at bedtime. Referrals: Renetta Oliveros MD [Primary Care Provider, Internal Medicine] Print Language: Chinese
[2025-08-29 14:27] LABS: MANUAL DIFF FLAG NO
[2025-08-29 14:31] LABS: Hematocrit 44.0 % (42.0-52.0); Hemoglobin 14.3 g/dl (14.0-18.0); Imm Gran Abs Auto 0.02 X10*3/uL (0.00-0.03); Imm Gran Pct Auto 0.4 % (0.0-0.4); Lymphocytes Absolute Auto 1.8 X10*3/uL (1.2-4.9); Mean Corpuscular HGB Conc 32.5 g/dl (31.0-36.0); Mean Corpuscular Hemoglobin 31.5 pg (27.0-33.0); Mean Corpuscular Volume 96.9 fL (80.0-98.0); NRBC Abs Auto 0.000 X10*3/uL (0.0-0.012); NRBC Pct Auto 0.0 /100WBC (0.0-0.2); Platelet Count 146 X10*3/uL (160-400); Red Blood Count 4.54 X10*6/uL (4.60-5.80); White Blood Count 4.8 X10*3/uL (4.8-10.8)
[2025-08-29 14:44] LABS: IDNOW Serial# 08D9AD1C; Influenza B2 Negative (Negative)
[2025-08-29 14:45] LABS: COVID-19 Test Negative (Negative); IDNOW Serial# 6674DD1D
[2025-08-29 14:50] LABS: Alanine Aminotransferase 66 U/L (0-40); Albumin Level 5.0 g/dL (3.5-5.0); Alkaline Phosphatase 92 U/L (39-117); Anion Gap 13 (12-20); Aspartate Amino Transferase 67 U/L (5-37); Blood Urea Nitrogen 19 mg/dL (9-16); Calcium 10.0 mg/dL (8.4-10.2); Carbon Dioxide 30 mmol/L (22-29); Chloride 102 mmol/L (96-108); Creatinine Clr Calc Pharmacy 111.3; Estimated Glomerular Filt Rate > 60; Magnesium 1.9 mg/dL (1.6-2.6); Potassium 4.2 mmol/L (3.3-5.1); Sodium 141 mmol/L (135-145); Total Protein 7.9 g/dL (6.5-8.0)
[2025-08-29 14:57] LABS: Troponin-I High Sensitivity < 2.7 ng/L (<3.5-35.0)
[2025-08-29 16:31] VITALS: BP 129/75; PULSE 93; RESP 18; O2SAT 92
[2025-08-29 16:50] LABS: D Dimer High Sensitivity 162 NG/ML
[2025-08-29 17:01] LABS: Troponin-I High Sensitivity < 2.7 ng/L (<3.5-35.0)
--- OUTSIDE RECORDS SUMMARY | 2025-08-29 19:51 | XMS_ITS | Clinical Summary ---
Author Organization [facility] Address [address] [place] [id number] Care Team Providers Care Chemical Engraver Name Role Phone Unknown, Provider MD Primary [...] COVID-19 Vaccine (2023- season) 2024 Care Teams Chemical Engraver Relationship Specialty Start Date End Date Unknown, Provider, PCP - General 09/06/15
--- OUTSIDE RECORDS SUMMARY | 2025-08-29 19:51 | XMS_ITS | Patient Health Record ---
Author Organization [facility] Address [address] [place] [address] Support Name Relationship Address Phone REZA HOLM Emergency Contact [address] [place], [place] [id number] PABLO GONZALEZ Guarantor Unknown Care Team Providers Care Anesthesiologist Assistant Certified Name Role Phone Domo ESPINAL, Renetta Primary Care Provider Unavailpati e Rodríguze Shah Jr Unavailable Allergies Allergen (clinical drug ingredient) Drug/Non Drug Allergy documented on EMR Reaction Allergy Type Onset Date Status Iodine Unknown Drug Allergy Active Reason For Referral Referring Provider First Name Renetta Referring Provider Last Name Domo Referring Provider Speciality Internal M edicine Referred Organization [facility] Referred Provider Rodríguez Shah Jr Referred Address [address],[place], [place],[address], Referred Provider Specialty Gastroentero logy Referral Priority Routine Medications Medication SIG (Take, Route, Frequency, Duration) Notes Start Date End Date Status Allopurinol 300 MG 1 tablet Orally Once a day Active Prazosin HCl 2 MG 1 capsule at bedtime Orally Once a day; Duration: 30 day(s) 08/29/2025 Active Atorvastatin Calcium 80 MG 1 tablet Orally Once a day Active Pioglitazone HCl 15 MG 1 tablet Orally O nce a day; Duration: 30 day(s) 08/29/2025 Active Albuterol Sulfate (2.5 MG/3ML) 0.083% 3 ml Inhalation Three times a day Active Topiramate 25 MG 1 tablet Orally Once a day; Duration: 30 day(s) 08/29/2025 Active ProAir HFA 108 (90 Base) MCG/ACT 2 puffs as needed Inhalation every 4 hrs Active Synjardy XR 12.5-1000 MG 1 tablet with b reakfast Orally Once a day; Duration: 30 day(s) 08/29/2025 Active Fish Oil 1000 MG 1 capsule Orally Onc e a day Active Ondansetron Not-Taki ng Complera 200-25-300 MG 1 tablet with a m eal Orally Once a day Active Dexamethasone Not-Ta haley Loratadine 10 MG 1 tablet Orally Once a day Active Aspir-81 81 MG 1 tablet Orally Once a day Active Zofran 4 MG/5ML 10 ml Orally Once a day Active Lisinopril 5 MG 1 tablet Orally Once a day Active Ranitidine HCl 300 MG 1 capsule at bedti in Orally Once a day; Duration: 30 days 11/22/2014 Active Epzicom Active metFORMIN HCl ER Act sayra Divalproex Sodium Ac tive traZODone HCl Active Claritin Active Ferrous Sulfate Acti ve Mounjaro 2.5 MG/0.5ML as directed Subcutaneous Active Biktarvy 50-200-25 MG TAKE 1 TABLET BY M OUTH AT BEDTIME Oral; Duration: 30 Days Active SUMAtriptan Succinate 25 MG TAKE 1 TABLET BY MOUTH AT ONSET OF MIGRAINE. MAY REPEAT ONCE AFTER 2 HOURS IF NEEDED, DO NOT EXCEED 4 TABLETS / 24 HOURS Oral; Duration: 15 Days Active Vitamin B6 Active Vitamin D3 Active Carvedilol 3.125 MG TAKE 1 TABLET BY LIYAH TWICE DAILY IN THE MORNING AND IN THE EVENING Oral; Duration: 90 Days Active Tadalafil 5 MG 1 tablet as needed Orally Once a day Active Olmesartan Medoxomil 5 MG as directed Orally 08/29 Active Gabapentin 300 MG TAKE 1 CAPSULE BY MO UTH THREE TIMES DAILY IN THE MORNING, EVENING, AND BEDTIME Oral; Duration: 30 Days Active Immunizations Vaccine Route Administration Date Status Comme nts Influenza Unknown 08/29/2024 Administered Problems Problem Type SNOMED Code ICD Code Onset Dates Problem Status W/U Status Risk Notes Problem Gastro-esophagea l reflux disease without esophagitis (017867018) Gastro-esophage al reflux disease without esophagitis (K21.9) Active confirmed Vital Signs Temperature 96.7 degrees Fahrenheit 08/29/2025 Blood pressure diastolic 01 mm Hg 08/29/2025 Height 70.5 in 08/29/2025 Blood pressure systolic 001 mm Hg 08/29/2025 Weight 235.4 lbs 08/29/2025 BMI 33.3 kg/m2 08/29/2025 Encounters Encounter Location Date Provider Diagnosis [facility] [address] [place] [phone] 08/29/2025 Rodríguez Shah Jr Encounter for screening for malignant neoplasm of colon Z12.11 [facility] [address] [place] [phone] 08/29/2025 Rodríguez Shah Jr [facility] [address] [place] [phone] 04/10/2025 Rodríguez Shah Jr Assessments Encounter Date Diagnosis (ICD Code) Assessment Notes Treatment Notes Treatment Clinical Notes Section Notes 08/29/2025 Encounter for screening for malignant neoplasm of colon (ICD-10 - Z12.11) Plan Of Treatment Pending Test Test Name Order Date XR GI SERIES 11/22/2014 Future Test Test Name Order Date COLONOSCOPY 08/29/2025 Next Appt Details Provider Name:Rodríguez villegas Jr, 10/05/2025 09:50:00 AM, [address] [place] [address] , [place], [place], [id number], Insurance Providers Payer Name Payer Address Payer Phone Subscriber Number Group Number Insured Name Patient Relationship to Insured Coverage Start Date Coverage End Date MEDICAID OF [employer] [address] [place] [phone] [id number] PABLO MÉNDEZ Self - patient is the insured Medical (General) History Medical History History ICD Code asthma esophageal reflux human immunodeficiency virus (HIV), posi tive hypertension Denies CVA,renal disease [place] 2008 glucose intolerance Surgical History Surgery Date(Month/Year) port for chemo
[2025-08-29 21:09] VITALS: BP 129/75; PULSE 93; RESP 18; TEMP -17.7; TEMP 0; O2SAT 92
== END 2025-08-29 21:10 | disposition home or self-care (01) ==
PROVIDERS: Student in an Organized Health Care Education/Training Program; Emergency Provider Emergency Medicine; PCP Family Medicine
DX: R07.9 Chest pain, unspecified (principal); R42 Dizziness and giddiness; R51.9 Headache, unspecified; I10 Essential (primary) hypertension; B20 Human immunodeficiency virus [HIV] disease; R06.02 Shortness of breath; Z79.899 Other long term (current) drug therapy; Z03.818 Encounter for observation for suspected exposure to other biological agents ruled out
CPT/HCPCS: 36415; 70450; 71046; 80053; 83735; 84484; 85025; 85379; 87502; 87635; 93005; 99284

== ENCOUNTER → 2025-08-29 13:17 | Outpatient (BNV) | payer MEDICAID, SELFPAY | PROVIDERS: Emergency Provider Emergency Medicine; PCP Family Medicine; Visit Provider Internal Medicine | DX: R07.9 Chest pain, unspecified (principal) | CPT/HCPCS: 93010 ==

== ENCOUNTER → 2025-08-29 13:27 | Outpatient (BNV) | payer MEDICAID, SELFPAY | PROVIDERS: PCP Family Medicine; Visit Provider Radiology Diagnostic Radiology | DX: R51.9 Headache, unspecified (principal); R42 Dizziness and giddiness; R07.9 Chest pain, unspecified | CPT/HCPCS: 70450; 71046 ==

== ENCOUNTER 2025-10-05 07:07 | Outpatient (REF) | payer MEDICAID, SELFPAY ==
--- OUTSIDE RECORDS SUMMARY | 2025-04-30 06:00 | XMS_ITS ---
Author Organization [facility] Address [address] [place] [address] Care Team Providers Care Dry Mixer Name Role Phone Domo ESPINAL, Renetta Primary Care Provider Rodríguez Ma Jr [phone] REASON FOR VISIT discuss colonoscopy Encounters Encounter Location Date Provider Diagnosis [facility] [address] [place] [address] 04/30/2025 Rodríguez Shah Jr Plan Of Treatment Next Appt Details Provider Name:Rodríguez villegas Jr, 10/05/2025 09:50:00 AM, [address] [place] [address], [phone], Progress Notes * YOUSIF GONZALEZSIDDOB:1964 (60 yo M)Acc No.[id number]:04/30/2025 Progress Notes Patient: PABLO BROWN Provider: Mya Shah MD :1965 A ge:59 Y S ex:Male Date:04/30/2025 Address:[address] [place] [address], [place], [place] Pcp:Renetta Oliveros MD Subjective: * Chief Complaints: * D iscuss colonoscopy * The named appointment provid er may or may not be the originator of this progress note, and it is not deemed complete until electronically signed by the appointment provider. Sign off status: Pending * Provider: Mya Shah MD Date: 0 04/30/2025 Generated for Sen rebolledo/José/Alverto on: 1 12/06/2024 07:08 AM EST
--- OUTSIDE RECORDS SUMMARY | 2025-10-05 07:09 | XMS_ITS | Patient Health Record ---
Author Organization [facility] Address [address] [place] [address] Support Name Relationship Address Phone REZA HOLM Emergency Contact [address] [place], [place] [phone] PABLO GONZALEZ Guarantor Unknown Care Team Providers Care Help Desk Engineer Name Role Phone Domo ESPINAL, Renetta Primary Care Provider Unavailpati e Rodríguez Shah Jr Unavailable [phone] Allergies Allergen (clinical drug ingredient) Drug/Non Drug Allergy documented on EMR Reaction Allergy Type Onset Date Status Iodine Unknown Drug Allergy Active Reason For Referral Referring Provider First Name Renetta Referring Provider Last Name Domo Referring Provider Speciality Internal M edicine Referred Organization [facility] Referred Provider Rodríguez Shah Jr Referred Address [address] [facility] [facility],[place], [place],[address], Referred Provider Specialty Gastroentero logy Referral Priority Routine Medications Medication SIG (Take, Route, Frequency, Duration) Notes Start Date End Date Status Allopurinol 300 MG Tablet 1 tablet Orally Once a day Active Prazosin HCl 2 MG Capsule 1 capsule at bedtime Orally Once a day; Duration: 30 day(s) 08/29/2025 Active Atorvastatin Calcium 80 MG Tablet 1 tablet Orally Once a day Active Pioglitazone HCl 15 MG Tablet 1 tablet Orally Once a day; Duration: 30 day(s) 08/29/2025 Active Albuterol Sulfate (2.5 MG/3ML) 0.083% Nebulization Solution 3 ml Inhalation Three times a day Active Topiramate 25 MG Tablet 1 tablet Orally Once a day; Duration: 30 day(s) 08/29/2025 Active ProAir HFA 108 (90 Base) MCG/ACT Aerosol Solution 2 puffs as needed Inhalation every 4 hrs Active Synjardy XR 12.5-1000 MG Tablet Extended Release 24 Hour 1 tablet with breakfast Orally Once a day; Duration: 30 day(s) 08/29/2025 Active Fish Oil 1000 MG Capsule 1 capsule Orally Once a day Active Ondansetron Not-Taki ng/PRN Complera 200-25-300 MG Tablet 1 tablet with a meal Orally Once a day Active Dexamethasone Not-Ta haley/PRN Loratadine 10 MG Tablet 1 tablet Orally Once a day Active Aspir-81 81 MG Tablet Delayed Release 1 tablet Orally Once a day Active Zofran 4 MG/5ML Solution 10 ml Orally Once a day Active Lisinopril 5 MG Tablet 1 tablet Orally O nce a day Active MiraLax 17 GM/SCOOP Powder take for bowel prep Orally Once a day; Duration: 1 days 08/29/2025 Active Dulcolax 5 MG Tablet Delayed Release 4 tablets for bowel prep Orally Once a day 08/29/2025 Active Ranitidine HCl 300 MG Capsule 1 capsule at bedtime Orally Once a day; Duration: 30 days 11/22/2014 Active Epzicom Active metFORMIN HCl ER Act sayra Divalproex Sodium Ac tive traZODone HCl Active Claritin Active Ferrous Sulfate Acti ve Mounjaro 2.5 MG/0.5ML Solution Auto-injector as directed Subcutaneous Active Biktarvy 50-200-25 MG Tablet TAKE 1 TABLET BY MOUTH AT BEDTIME Oral; Duration: 30 Days Active SUMAtriptan Succinate 25 MG Tablet TAKE 1 TABLET BY MOUTH AT ONSET OF MIGRAINE. MAY REPEAT ONCE AFTER 2 HOURS IF NEEDED, DO NOT EXCEED 4 TABLETS / 24 HOURS Oral; Duration: 15 Days Active Vitamin B6 Active Vitamin D3 Active Carvedilol 3.125 MG Tablet TAKE 1 TABLET BY MOUTH TWICE DAILY IN THE MORNING AND IN THE EVENING Oral; Duration: 90 Days Active Tadalafil 5 MG Tablet 1 tablet as needed Orally Once a day Active Olmesartan Medoxomil 5 MG Tablet as directed Orally 08/29/2025 Active Gabapentin 300 MG Capsule TAKE 1 CAPSULE BY MOUTH THREE TIMES DAILY IN THE MORNING, EVENING, AND BEDTIME Oral; Duration: 30 Days Active Immunizations Vaccine Route Administration Date Status Comme nts Influenza Unknown 08/29/2024 Administered Social History Social History Additional Details Category Social Info Options Details Miscellaneous: Marital status: Occupation: unemployed Problems Problem Type SNOMED Code ICD Code Onset Dates Problem Status W/U Status Risk Notes Problem Gastro-esophagea l reflux disease without esophagitis (139842486) Gastro-esophage al reflux disease without esophagitis (K21.9) Active confirmed Problem Screening for malignant neoplasm of colon (086381198) Encounter for screening for malignant neoplasm of colon (Z12.11) Active confirmed Problem Fatty liver (774958361) Fatty liver (K76.0) Active confirmed Vital Signs Temperature 96.7 degrees Fahrenheit 08/29/2025 Blood pressure diastolic 01 mm Hg 08/29/2025 Height 70.5 in 08/29/2025 Blood pressure systolic 001 mm Hg 08/29/2025 Weight 235.4 lbs 08/29/2025 BMI 33.3 kg/m2 08/29/2025 Encounters Encounter Location Date Provider Diagnosis [facility] [address] [place] [phone] 08/29/2025 Rodríguez Shah Jr Encounter for screening for malignant neoplasm of colon Z12.11 and Fatty liver K76.0 [facility] [address] [place] [phone] 04/10/2025 Rodríguez Shah Jr [facility] [address] [place] [phone] 08/29/2025 Rodríguez Shah Jr Assessments Encounter Date [...] COLONOSCOPY 08/29/2025 Next Appt Details Provider Name:Rodríguez Placido villegas Jr, 10/05/2025 09:50:00 AM, [address] [place] [address] , [place], [place], [phone], Insurance Providers Payer Name Payer Address Payer Phone Subscriber Number Group Number Insured Name Patient Relationship to Insured Coverage Start Date Coverage End Date [place] [address] [facility] [place] [id number] PABLO MÉNDEZ Self - patient is the insured Medical (General) History Medical History History ICD Code asthma esophageal reflux human immunodeficiency virus (HIV), posi tive hypertension [place] 2008 glucose intolerance Surgical History Surgery Date(Month/Year) port for chemo
--- OUTSIDE RECORDS SUMMARY | 2025-10-05 07:09 | XMS_ITS | Clinical Summary ---
Author Organization [facility] Address [address] [place] [address] Care Team Providers Care Customer Greeter Name Role Phone Unknown, Provider MD Primary [...] - 19+ 3-dose series) 07/17 COVID-19 Vaccine (2024- season) 2025 Care Teams Customer Greeter Relationship Specialty Start Date End Date Unknown, Provider, PCP - General 09/06/15
== END 2025-10-05 07:08 | disposition home or self-care (01) ==
LOC: HO.LAB 07:07
PROVIDERS: PCP Family Medicine; Visit Provider Nurse Practitioner Family
DX: E29.1 Testicular hypofunction (principal); E11.69 Type 2 diabetes mellitus with other specified complication; N52.1 Erectile dysfunction due to diseases classified elsewhere
CPT/HCPCS: 36415; 83002; 83036; 84402; 84403

== ENCOUNTER 2025-10-05 07:28 | Day surgery (SDC) | payer MEDICAID, SELFPAY ==
--- OUTSIDE RECORDS SUMMARY | 2025-04-30 06:00 | XMS_ITS ---
Author Organization [facility] Address [address] [place] [address] Care Team Providers Care Deburr Technician Name Role Phone Domo ESPINAL, Renetta Primary Care Provider Rodríguez Ma Jr REASON FOR VISIT discuss colonoscopy Encounters Encounter Location Date Provider Diagnosis [facility] [address] [place] [address] 04/30/2025 Rodríguez Shah Jr Plan Of Treatment Next Appt Details Provider Name:Rodríguez villegas Jr, 10/05/2025 09:50:00 AM, [address] [place] [address], [phone], Progress Notes * YOUSIF GONZALEZSIDDOB:1964 (60 yo M)Acc No.[id number]:04/30/2025 Progress Notes Patient: PABLO BROWN Provider: Mya Shah MD :1965 A ge:59 Y S ex:Male Date:04/30/2025 Address:[address] [place] [address], [place] Pcp:Renetta Oliveros MD Subjective: * Chief Complaints: * 1 . Discuss colonoscopy. * Medical History: Objective: * Vitals: Assessment: Plan: * Treatment: * * The named appointment provid er may or may not be the originator of this progress note, and it is not deemed complete until electronically signed by the appointment provider. Sign off status: Pending * Provider: Mya Shah MD Date: 0 04/30/2025 Generated for Sen rebolledo/José/Alverto on: 11/06/2024 08:02 AM EST
--- OUTSIDE RECORDS SUMMARY | 2025-09-06 08:03 | XMS_ITS | Patient Health Record ---
Author Organization [facility] Address [address] [place] [address] Support Name Relationship Address Phone REZA HOLM Emergency Contact [address] [place], [place] [phone] PABLO GONZALEZ Guarantor Unknown Care Team Providers Care Psychiatric Specialist Name Role Phone Domo ESPINAL, Renetta Primary Care Provider Unavailpati e Rodríguez Shah Jr Unavailable Allergies Allergen (clinical drug ingredient) Drug/Non Drug Allergy documented on EMR Reaction Allergy Type Onset Date Status Iodine Unknown Drug Allergy Active Reason For Referral Referring Provider First Name Renetta Referring Provider Last Name Domo Referring Provider Speciality Internal M edicine Referred Organization [facility] Referred Provider Rodríguez Shah Jr Referred Address [address],[place], [place],[address], Referred Provider Specialty Gastroentero logy Referral Priority [...] Onc e a day Active Ondansetron Not-Taki kesha Complera 200-25-300 MG 1 tablet with a m eal Orally Once a day Active Dexamethasone Not-Will de leon Loratadine 10 MG 1 tablet Orally Once a day Active Aspir-81 81 MG 1 tablet Orally Once a day Active Zofran 4 MG/5ML 10 ml Orally Once a day Active Lisinopril 5 MG 1 tablet Orally Once a day Active MiraLax 17 GM/SCOOP take for bowel prep Orally Once a day; Duration: 1 days 08/29/2025 Active Dulcolax 5 MG 4 tablets for bowel prep Orally Once a day 08/29/2025 Active Ranitidine HCl 300 MG 1 capsule at bedti id Orally Once a day; Duration: 30 days [...] Problem Gastro-esophagea l reflux disease without esophagitis (788575881) Gastro-esophage al reflux disease without esophagitis (K21.9) Active confirmed Problem Screening for malignant neoplasm of colon (800372215) Encounter for screening for malignant neoplasm of colon (Z12.11) Active confirmed Problem Fatty liver (357841643) Fatty liver (K76.0) Active confirmed Vital Signs Temperature 96.7 degrees Fahrenheit 08/29/2025 Blood pressure diastolic 01 mm Hg 08/29/2025 Height 70.5 in 08/29/2025 Blood pressure systolic 001 mm Hg 08/29/2025 Weight 235.4 lbs 08/29/2025 BMI 33.3 kg/m2 08/29/2025 Encounters Encounter Location Date Provider Diagnosis [facility] [address] [place] [phone] 08/29/2025 Rodríguez Shah Jr Encounter for screening for malignant neoplasm of colon Z12.11 and Fatty liver K76.0 [facility] [address] [place] [phone] 04/10/2025 Rodríguez Shah Jr [facility] [address] [place] [phone] 08/29/2025 Rodríguez Shah Jr Assessments Encounter Date Diagnosis [...] and agrees to proceed. Plan Of Treatment Pending Test Test Name Order Date XR GI SERIES 11/22/2014 Future Test Test Name Order Date COLONOSCOPY 08/29/2025 Next Appt Details Provider Name:Rodríguez Cummins Alphonsocarlos mcgregorabner Burton, 10/05/2025 09:50:00 AM, [address] , [place], [place], [phone], Insurance Providers Payer Name Payer Address Payer Phone Subscriber Number Group Number Insured Name Patient Relationship to Insured Coverage Start Date Coverage End Date [facility] [facility] [address] [place] [address] [id number] PABLO MÉNDEZ Self - patient is the insured Medical (General) History Medical History History ICD Code asthma esophageal reflux human immunodeficiency virus (HIV), posi tive hypertension [place] 2008 glucose intolerance Surgical History Surgery Date(Month/Year) port for chemo
--- NOTE | 2025-10-02 13:32 | HO.ANESPROP2 ---
Documented by User: Carleen Strickland NP 10/04/25 08:45 HPI - Anesthesia Eval Consult details Narrative: 60yo M for Colonoscopy Hodgkins s/p chemo 2015 Remote MD hx 2009 - nml EKG 08/2025 Anesthesia Pre-Procedure Meds Is the patient on any of the following meds?: GLP1/DPP4 and SGLT2 Inhib PMFSH Active Problems Active Problems: All Active Problems Frequent headaches (Acute) Excessive daytime sleepiness (Acute) RLS (restless legs syndrome) (Acute) KARINA (obstructive sleep apnea) (Acute) Bilateral headaches (Acute) Hypogonadism in male (Acute) Erectile dysfunction associated with type 2 diabetes mellitus (Acute) Bilateral primary osteoarthritis of knee (Acute) Renal cyst (Acute) Nephrolithiasis (Acute) Arthritis of both knees (Acute) Elevated CPK (Acute) Past Medical History Medical History Obstructive sleep apnea Glucose intolerance Myocardial infarction (~2008) HTN (hypertension) Asthma Anemia of chronic disease GERD (gastroesophageal reflux disease) Dyslipidemia Tubular adenoma of colon Essential hypertension Peripheral polyneuropathy HIV (human immunodeficiency virus infection) Family History Family History Sister Diabetes Kidney problem Father Diabetes Mother Diabetes Brother Diabetes Kidney problem Heart problem Brother Diabetes Lymphoma Other Family history of arthritis Surgical History Surgical History History of insertion of central venous access port History of cardiac catheterization Social History Social History Household Members: Spouse Housing: Apartment Are you a primary urgent care nurse practitioner to a significant other at home: No Do you presently have visiting nurse or other home services: No Alcohol intake: former Patient Tobacco Use Status: Former Tobacco user service: No Current occupational status: disabled Meds Allergies Allergy/AdvReac Type Severity Reaction Status Date / Time iodine (IODINE) Allergy Unknown DIFFICULTY Verified 10/05/25 08:56 BREATHING SEAFOOD Allergy Unknown ANAPHYLAXIS Uncoded 10/05/25 08:56 Home Medications ?Medication ?Instructions ?Recorded ?Confirmed ?Last Taken ?Type alcohol swabs (Alcohol Prep Pads) 1 pad topical BID 04/13/22 10/03/25 Unknown History allopurinol 300 mg tablet 1 tab PO QAM 04/13/22 10/03/25 Unknown History aspirin 81 mg tablet,delayed 1 tab PO QAM 04/13/22 10/03/25 10/02/25 History release atorvastatin 80 mg tablet 1 tab PO QPM 04/13/22 10/03/25 Unknown History blood sugar diagnostic (FreeStyle 04/13/22 07/26/25 Unknown History Lite Strips) carvedilol 3.125 mg tablet 1 tab PO BID 04/13/22 10/03/25 Unknown History gabapentin 300 mg capsule 1 cap PO TID pain 04/13/22 10/03/25 Unknown History lancets 33 gauge (TRUEplus Lancets) 04/13/22 07/26/25 Unknown History cholecalciferol (vitamin D3) 25 25 mcg PO QAM 04/13/23 10/03/25 Unknown History mcg (1,000 unit) tablet divalproex 500 mg tablet,extended 500 mg PO BEDTIME 05/14/23 10/03/25 Unknown History release 24 hr prazosin 2 mg capsule 2 mg PO BEDTIME 05/14/23 10/03/25 Unknown History trazodone 150 mg tablet 100 mg PO BEDTIME 05/14/23 10/03/25 Unknown History bictegravir 50 mg-emtricitabine 1 tab PO BEDTIME 05/18/25 10/03/25 Unknown History 200 mg-tenofovir alafenam 25 mg tablet (Biktarvy) olmesartan 5 mg tablet 5 mg PO DIRECTED 05/18/25 10/03/25 Unknown History pioglitazone 15 mg tablet 15 mg PO DAILY 07/26/25 10/03/25 Unknown History albuterol sulfate 2.5 mg/3 mL 2.5 mg inhalation TID PRN 10/03/25 10/03/25 Unknown History (0.083 %) solution for nebulization Shortness Of Breath Or Wheezing albuterol sulfate 90 mcg/actuation 2 puff inhalation Q4-6H PRN 10/03/25 10/03/25 Unknown History aerosol inhaler Shortness Of Breath Or Wheezing empagliflozin 12.5 mg-metformin ER 1 tab PO DAILY 10/03/25 10/03/25 10/01/25 History 1,000 mg tablet,extended rel 24 hr (Synjardy XR) emtricitabine 200 mg-rilpivirine 1 tab PO DAILY 10/03/25 10/03/25 Unknown History 25 mg-tenofovir disprox 300 mg tablet (Complera) ferrous sulfate 324 mg (65 mg 324 mg PO DAILY 10/03/25 10/03/25 Unknown History iron) tablet,delayed release lisinopril 5 mg tablet 5 mg PO QAM 10/03/25 10/03/25 Unknown History loratadine 10 mg tablet 10 mg PO DAILY 10/03/25 10/03/25 Unknown History omega 5-vob-fyv-fish oil 60 mg-90 1 cap PO DAILY 10/03/25 10/03/25 Unknown History mg-500 mg capsule (Fish Oil) ranitidine HCl 300 mg tablet 300 mg PO BEDTIME 10/03/25 10/03/25 Unknown History sumatriptan succinate 25 mg tablet 25 mg PO QD-BID migraine 10/03/25 10/03/25 Unknown History tadalafil 5 mg tablet (Cialis) 5 mg PO DAILY PRN Sexual Activity 10/03/25 10/03/25 Unknown History tirzepatide 2.5 mg/0.5 mL 2.5 mg subcut QWEEK 10/03/25 10/03/25 09/22/25 History subcutaneous pen injector (Mounjaro) Exam Pertinent Lab Results Pertinent Lab Results: Laboratory Tests 08/29/25 14:22 WBC 4.8 Hgb 14.3 Hct 44.0 Plt Count 146 L Sodium 141 Potassium 4.2 Chloride 102 Carbon Dioxide 30 H BUN 19 H Creatinine 0.89 Narrative Narrative: EKG 08/2025 Vent. Rate : 81 BPM Atrial Rate : 81 BPM P-R Int : 166 ms QRS Dur : 88 ms QT Int : 376 ms P-R-T Axes : 39 12 54 degrees QTcB Int : 436 ms Normal sinus rhythm Normal ECG When compared with ECG of 27-Aug-2025 21:27, No significant change was found Assessment and Plan Assessment Anesthesia Assessment: Chart Reviewed Documented by User: Taina Liz MD 10/05/25 10:26 [facility] Past Medical History Medical History Obstructive sleep apnea Glucose intolerance Myocardial infarction (~2008) HTN (hypertension) Asthma Anemia of chronic disease GERD (gastroesophageal reflux disease) Dyslipidemia Tubular adenoma of colon Essential hypertension Peripheral polyneuropathy HIV (human immunodeficiency virus infection) Family History Family History Sister Diabetes Kidney problem Father Diabetes Mother Diabetes Brother Diabetes Kidney problem Heart problem Brother Diabetes Lymphoma Other Family history of arthritis Surgical History Surgical History History of insertion of central venous access port History of cardiac catheterization History of Problems with Anesthesia: No Social History Social History Household Members: Spouse Housing: Apartment Are you a primary urgent care nurse practitioner to a significant other at home: No Do you presently have visiting nurse or other home services: No Alcohol intake: former Patient Tobacco Use Status: Former Tobacco user service: No Current occupational status: disabled Meds Allergies Allergy/AdvReac Type Severity Reaction Status Date / Time iodine (IODINE) Allergy Unknown DIFFICULTY Verified 10/05/25 08:56 BREATHING SEAFOOD Allergy Unknown ANAPHYLAXIS Uncoded 10/05/25 08:56 Home Medications ?Medication ?Instructions ?Recorded ?Confirmed ?Last Taken ?Type alcohol swabs (Alcohol Prep Pads) 1 pad topical BID 04/13/22 10/03/25 Unknown History allopurinol 300 mg tablet 1 tab PO QAM 04/13/22 10/03/25 Unknown History aspirin 81 mg tablet,delayed 1 tab PO QAM 04/13/22 10/03/25 10/02/25 History release atorvastatin 80 mg tablet 1 tab PO QPM 04/13/22 10/03/25 Unknown History blood sugar diagnostic (FreeStyle 04/13/22 07/26/25 Unknown History Lite Strips) carvedilol 3.125 mg tablet 1 tab PO BID 04/13/22 10/03/25 Unknown History gabapentin 300 mg capsule 1 cap PO TID pain 04/13/22 10/03/25 Unknown History lancets 33 gauge (TRUEplus Lancets) 04/13/22 07/26/25 Unknown History cholecalciferol (vitamin D3) 25 25 mcg PO QAM 04/13/23 10/03/25 Unknown History mcg (1,000 unit) tablet divalproex 500 mg tablet,extended 500 mg PO BEDTIME 05/14/23 10/03/25 Unknown History release 24 hr prazosin 2 mg capsule 2 mg PO BEDTIME 05/14/23 10/03/25 Unknown History trazodone 150 mg tablet 100 mg PO BEDTIME 05/14/23 10/03/25 Unknown History bictegravir 50 mg-emtricitabine 1 tab PO BEDTIME 05/18/25 10/03/25 Unknown History 200 mg-tenofovir alafenam 25 mg tablet (Biktarvy) olmesartan 5 mg tablet 5 mg PO DIRECTED 05/18/25 10/03/25 Unknown History pioglitazone 15 mg tablet 15 mg PO DAILY 07/26/25 10/03/25 Unknown History albuterol sulfate 2.5 mg/3 mL 2.5 mg inhalation TID PRN 10/03/25 10/03/25 Unknown History (0.083 %) solution for nebulization Shortness Of Breath Or Wheezing albuterol sulfate 90 mcg/actuation 2 puff inhalation Q4-6H PRN 10/03/25 10/03/25 Unknown History aerosol inhaler Shortness Of Breath Or Wheezing empagliflozin 12.5 mg-metformin ER 1 tab PO DAILY 10/03/25 10/03/25 10/01/25 History 1,000 mg tablet,extended rel 24 hr (Synjardy XR) emtricitabine 200 mg-rilpivirine 1 tab PO DAILY 10/03/25 10/03/25 Unknown History 25 mg-tenofovir disprox 300 mg tablet (Complera) ferrous sulfate 324 mg (65 mg 324 mg PO DAILY 10/03/25 10/03/25 Unknown History iron) tablet,delayed release lisinopril 5 mg tablet 5 mg PO QAM 10/03/25 10/03/25 Unknown History loratadine 10 mg tablet 10 mg PO DAILY 10/03/25 10/03/25 Unknown History omega 1-qqn-kjh-fish oil 60 mg-90 1 cap PO DAILY 10/03/25 10/03/25 Unknown History mg-500 mg capsule (Fish Oil) ranitidine HCl 300 mg tablet 300 mg PO BEDTIME 10/03/25 10/03/25 Unknown History sumatriptan succinate 25 mg tablet 25 mg PO QD-BID migraine 10/03/25 10/03/25 Unknown History tadalafil 5 mg tablet (Cialis) 5 mg PO DAILY PRN Sexual Activity 10/03/25 10/03/25 Unknown History tirzepatide 2.5 mg/0.5 mL 2.5 mg subcut QWEEK 10/03/25 10/03/25 09/22/25 History subcutaneous pen injector (Dari) Exam Airway Mallampati Class: III TM Dist: >3cm Neck ROM: Full Loose/Missing/Broken Teeth: No Heart: RRR Lungs: CTA Assessment and Plan Assessment Anesthesia Assessment: Anesthesia Plan Discussed Final Anesthetic Review History of Problems with Anesthesia: No NPO: Yes ASA Class: III Final Preanesthetic Review: Meds/Allgs Chart Reviewed, Consent Obtained/Reviewed and Anes Risks/Benef Reviewed Patient Risk: Intermediate Procedure Risk: Low Anesthetic Plan Anesthetic Plan: MAC: Disposition: Standard PACU
[2025-10-03 12:26] VITALS: BMI 33.7
[2025-10-05] MEDS: Lactated Ringers 1,000 ML 100 ML IVCONT (09:04)
[2025-10-05 09:06] LABS: Glucose, Whole Blood 161 mg/dL (60-115)
[2025-10-05 10:02] VITALS: BP 118/75; PULSE 84; RESP 18; TEMP 36.8; O2SAT 94
--- NOTE | 2025-10-05 10:21 | MHC.SHP ---
Pre-Procedural Eval Section A - 24 Hr Update-Section A only Date of Service: 10/05/25 Section B - Complete if H&P > 30 days Chief Complaint: screening Details of Present Illness: see H&P no changes Relevant Family History (Specify if Yes): No Relevant Social History: None Present Medications: see Short Stay Collaborative assessment Medical History: No relevant PMH History of Previous Operations: No relevant previous surgery Allergies: Allergies Allergy/AdvReac Type Severity Reaction Status Date / Time iodine (IODINE) Allergy Unknown DIFFICULTY Verified 10/05/25 08:56 BREATHING SEAFOOD Allergy Unknown ANAPHYLAXIS Uncoded 10/05/25 08:56 Review of Systems Sugical H&P ROS: Negative: Constitution, Cardiovascular, Respiratory, Neurological, Psychiatric, Hem-Onc, Allergic/Immunologic, Gastrointestinal, Genitourinary, Musculoskeletal, Integumentary, Endocrine and Eyes/Ears/Nose/Throat Exam Surgical H&P Exam: Normal: HEENT, Normal: Heart, Normal: Lungs, Normal: Extremities, Normal: Abdomen, Normal: Skin and Normal: Neurological Plan Diagnosis/Plan: Unchanged I have reviewed the history and physical and performed a pertinent physical examination on my patient. No changes have occurred unless specified. Time Spent With Patient Time: Total time managing care of this patient today ____ minutes.
[2025-10-05 11:07] VITALS: BP 88/51; PULSE 72; RESP 18; TEMP 36.4; O2SAT 98
[2025-10-05 11:22] VITALS: BP 108/63; PULSE 72; RESP 16; O2SAT 94
[2025-10-05 11:37] VITALS: BP 120/72; PULSE 75; RESP 16; TEMP 36.1; O2SAT 94
--- NOTE | 2025-10-05 12:43 | OP_ITS ---
DATE OF SERVICE: 10/05/2025 SURGEON: Rodríguez Shah MD INDICATIONS: Colon cancer screening. PREOPERATIVE DIAGNOSIS: POSTOPERATIVE DIAGNOSIS: PROCEDURE PERFORMED: Colonoscopy to the cecum with biopsy and snare polypectomy. ESTIMATED BLOOD LOSS: COMPLICATIONS: ANESTHESIA: Medications, monitored anesthesia care. ASSISTANTS: SPECIMENS: DESCRIPTION OF PROCEDURE: A history and physical were performed. The risks and benefits of procedure were explained to the patient. Informed consent was obtained. The patient was placed in the left lateral decubitus position. A digital rectal exam was performed and was found to be normal. The Olympus pediatric video colonoscope was introduced through the rectum and advanced to the cecum. The cecum was identified by transillumination, palpation, and identification of ileocecal valve. Examination was performed. The scope was removed. He tolerated the procedure well and was returned to recovery area in stable condition. FINDINGS: The terminal ileum was not examined. The visualized colonic mucosa was normal. The quality of the prep was good. In the cecum, there was less than 5 mm sessile polyp. This was removed with biopsy forceps. At 25 cm from the anal verge, there was a 10 mm polyp, which was removed with a hot snare and recovered via suction. No other polyps were identified. Retroflexed examination was normal. IMPRESSION: Colon polyps. RECOMMENDATION: Follow up the biopsy results. MD MAUREEN Godoy/LEOL / [id number]
== END 2025-10-05 12:11 | disposition home or self-care (01) ==
PROVIDERS: PCP Family Medicine; Visit Provider Internal Medicine Gastroenterology
PROC: 0DJD8ZZ Inspection of Lower Intestinal Tract, Via Natural or Artificial Opening Endoscopic (ICD-10-PCS; CPT 45378; principal; 2025-10-05 09:50)
DX: Z12.11 Encounter for screening for malignant neoplasm of colon (principal); Z86.0101 Personal history of adenomatous and serrated colon polyps; D12.5 Benign neoplasm of sigmoid colon; K63.5 Polyp of colon; K75.81 Nonalcoholic steatohepatitis (NASH); K21.9 Gastro-esophageal reflux disease without esophagitis; R79.89 Other specified abnormal findings of blood chemistry; I10 Essential (primary) hypertension; J45.909 Unspecified asthma, uncomplicated; B20 Human immunodeficiency virus [HIV] disease; I25.2 Old myocardial infarction; R73.09 Other abnormal glucose; Z79.82 Long term (current) use of aspirin; Z79.84 Long term (current) use of oral hypoglycemic drugs; Z79.85 Long-term (current) use of injectable non-insulin antidiabetic drugs; Z79.899 Other long term (current) drug therapy; Z91.041 Radiographic dye allergy status; Z87.891 Personal history of nicotine dependence
CPT/HCPCS: 45385; 45380; 82947; 88305; J2003; J2704

== ENCOUNTER 2025-10-23 08:19 | Outpatient (AMB) | payer MEDICAID, SELFPAY ==
--- OUTSIDE RECORDS SUMMARY | 2025-04-30 06:00 | XMS_ITS ---
Author Organization [facility] Address [address] [place] [address] Care Team Providers Care Welding Machine Operator Name Role Phone Domo ESPINAL, Renetta Primary Care Provider Rodríguez Ma Jr REASON FOR VISIT discuss colonoscopy Encounters Encounter Location Date Provider Diagnosis [facility] [address] [place] [address] 04/30/2025 Rodríguez Shah Jr Plan Of Treatment No Information Progress Notes * PABLO GONZALEZDOB:1964 (60 yo M)Acc No.[id number]:04/30/2025 Progress Notes Patient: PABLO BROWN Provider: Mya Shah MD :1965 A ge:59 Y S ex:Male Date:04/30/2025 Address:[address] [place] [address], [facility] Pcp:Renetta Oliveros MD Subjective: * Chief Complaints: * D iscuss colonoscopy * The named appointment provid er may or may not be the originator of this progress note, and it is not deemed complete until electronically signed by the appointment provider. Sign off status: Pending * Provider: Mya Shah MD Date: 0 04/30/2025 Generated for Janei kesha/José/eTransmitting on: 1 12/24/2024 08:27 AM EST
--- OUTSIDE RECORDS SUMMARY | 2025-10-05 04:50 | XMS_ITS ---
Author Organization [facility] Address [address] [place] [address] Support Name Relationship Address Phone REZA HOLM Emergency Contact [address] [place], [place] [id number] PABLO GONZALEZ Guarantor Unknown Care Team Providers Care Material Stockkeeper Yard Name Role Phone Domo ESPINAL, Renetta Primary Care Provider Rodríguez Ma Jr REASON FOR VISIT screening Encounters Encounter Location Date Provider Diagnosis [facility] [place] Outpatient [address] [place], [place] [phone] 10/05/2025 Rodríguez Shah Jr Plan Of Treatment No Information Progress Notes * PABLO GONZALEZDOB:1964 (60 yo M)Acc No.[id number]:10/05/2025 COLON WITH MAC Patient: PABLO BROWN Provider: Mya Shah MD :1965 A ge:60 Y S ex:Male Date:10/05/2025 Address:[address] [place], [place] [id number] Pcp:Renetta Oliveros MD Subjective: * Chief Complaints: * S creening Billing Information: * Procedure Codes: * The named appointment provid er may or may not be the originator of this progress note, and it is not deemed complete until electronically signed by the appointment provider. Sign off status: Pending * Provider: Mya Shah MD Date: 12/06/2024 Generated for Sen rebolledo/José/eTransmitting on: 12/24/2024 08:27 AM EST
--- NOTE | 2025-10-23 08:26 | MHC.OFFVIS ---
Intake Visit Reasons: 3m/LABS/UA(SET) Intake Note: Patient is present for 3M/LABS/UA LH:4.2 TT:97 FT:24.3 Urology Medication:VITAMIN B6,TADALAFIL,ALLOPURINOL Antibiotic Allergy:NONE Blood Thinner:ASPIRIN Hospital Clerk Required: Yes Hospital Clerk Services: Hospital Clerk Present Hospital Clerk Name: Luis Bolton Allergies iodine (IODINE) Allergy (Unknown, Verified 10/23/25 08:59) DIFFICULTY BREATHING SEAFOOD Allergy (Unknown, Uncoded 10/23/25 08:59) ANAPHYLAXIS Medication List - Last Reconciled 10/23/25 by NEY Lee- albuterol sulfate 2.5 mg inhalation TID PRN albuterol sulfate 90 mcg/actuation 2 puffs inhalation Q4-6H PRN alcohol swabs (Alcohol Prep Pads) 1 pad topical BID allopurinol 1 tab PO QAM aspirin 1 tab PO QAM atorvastatin 1 tab PO QPM sdnelvuqg-idlydovx-jgccevi ala 50-200-25 mg (Biktarvy) 1 tab PO BEDTIME blood sugar diagnostic (FreeStyle Lite Strips) carvedilol 1 tab PO BID cholecalciferol (vitamin D3) 25 mcg PO QAM divalproex ER 500 mg PO BEDTIME empagliflozin-metformin 12.5-1,000 mg ER (Synjardy XR) 1 tab PO DAILY zihtdpuid-sxodroonihp-xjldb DF 200-25-300 mg (Complera) 1 tab PO DAILY ferrous sulfate 324 mg PO DAILY gabapentin 1 cap PO TID lancets (TRUEplus Lancets) lisinopril 5 mg PO QAM loratadine 10 mg PO DAILY olmesartan 5 mg PO DIRECTED omega 5-qqi-wtf-fish oil 60-90-500 mg (Fish Oil) 1 cap PO DAILY pioglitazone 15 mg PO DAILY prazosin 2 mg PO BEDTIME pyridoxine (vitamin B6) 100 mg PO DAILY 90 days ranitidine HCl 300 mg PO BEDTIME sumatriptan succinate 25 mg PO QD-BID tadalafil (Cialis) 5 mg PO DAILY PRN testosterone 2 pumps topical DAILY 30 days tirzepatide (Mounjaro) 2.5 mg subcut QWEEK topiramate XR 25 mg PO DAILY 3 months MDD 25mg trazodone 100 mg PO BEDTIME HPI Comments Details: Radhames is a very pleasant 60-year-old Belarusian-speaking male patient of Dr. Oliveros who was accompanied by his at today's visit. He has a past medical history of anemia of chronic diseases, dyslipidemia, hypertension, GERD, HIV on HAART, peripheral polyneuropathy, and treated lymphoma. He presents to the office today for a follow up of his nephrolithiasis, renal cysts, erectile dysfunction and hypogonadism. In discussion with the patient today he reports compliance with daily dosing of tadalafil as ordered. He denies having had any bothersome urinary issues or concerns since his last office visit. Recent labs were reviewed with the patient today as noted and trended below: PSA: 11/25 0.3 Testosterone: 11/25 98, 06/25 154, 10/25 97 Free testosterone: 06/25 46.0, 10/25 24.3 SHB/25 8 Estradiol: 06/25 9 FSH: 06/25 125 LH: 06/25 4.7, 10/25 4.2 Prolactin: 06/25 5.0 A1c: 04/25 6.6, 06/25 7.7 We did discuss significant decrease in testosterone levels. We discussed potential causes of hypogonadism as well as further treatment options and risks and benefits of these treatment options. He does continue to feel he is struggling with obtaining and maintaining his erections Most recent karla l imaging 06/25 noted bilateral kidneys with normal parenchymal echotexture and thickness. Bilateral kidneys with no hydronephrosis or renal calculi. Bilateral renal cysts noted per radiology report. He reports upon initial initiation of daily dosing of tadalafil he did feel somewhat improvement in his libido and erections. We discussed correlation of hypogonadism and erectile dysfunction. When asked he denies urinary urgency, urinary frequency, incontinence, nocturia, hematuria, dysuria, foul smelling urine, changes to urinary stream, flank pain, fever, and or chills. He is happy with his current voiding parameters. We discussed at length the importance of management and diabetes for improvement in ED as well as overall health and well-being. He also discusses following up with his PCP and is still awaiting to undergo sleep study. He otherwise offers no issues or concerns at this time. [facility] Medical History Obstructive sleep apnea Glucose intolerance Myocardial infarction (~2008) HTN (hypertension) Asthma Anemia of chronic disease GERD (gastroesophageal reflux disease) Dyslipidemia Tubular adenoma of colon Essential hypertension Peripheral polyneuropathy HIV (human immunodeficiency virus infection) Surgical History History of insertion of central venous access port History of cardiac catheterization Family History Sister Diabetes Kidney problem Father Diabetes Mother Diabetes Brother Diabetes Kidney problem Heart problem Brother Diabetes Lymphoma Other Family history of arthritis Social History Household Members: Spouse Housing: Apartment Are you a primary day care director to a significant other at home: No Do you presently have visiting nurse or other home services: No Alcohol intake: former Patient Tobacco Use Status: Former Tobacco user service: No Current occupational status: disabled Review of Systems Const Reports as per HPI Eyes Reports no additional complaints ENT Reports no additional complaints Card Reports as per HPI Resp Reports no additional complaints GI Reports as per HPI Reports as per HPI Musc Reports as per HPI Neuro Reports as per HPI Psych Reports no additional complaints Endo Reports no additional complaints Misael/Lymph Details: Patient with a past medical history of Hodgkin's disease. Physical Exam Const General: cooperative, healthy appearing, comfortable, no acute distress, well developed, alert, awake and tired appearing Nutritional Appearance: overweight Orientation/consciousness: patient oriented x3 Limitations: language barrier HEENT Head: Yes normal to inspection, Yes normocephalic and Yes atraumatic Ears: hearing grossly normal bilaterally Eyes General: appearance normal, both eyes and all related structures Neck Neck: Yes normal visual inspection and Yes trachea midline Chest Chest palpation & inspection: normal inspection of the chest Resp Effort & Inspection: normal respiratory effort and able to speak in complete sentences Cardio Rate: regular rate GI Inspection: Yes normal to inspection General: Yes no CVA tenderness Back/Spine/Pelvis Back: no CVA tenderness Skin General skin exam: no rashes or lesions noted Neuro General: patient oriented x3 Extrem General: Yes normal to inspection Psych Appearance: grossly normal and well kempt Mental Status: mental status grossly normal Speech and movement: Normal speech and movement present and Clear speech present Affect: normal affect Attitude: cooperative Thought process: Normal thought process present Thought content: Normal thought content present Insight: Fair insight present (Psych) Judgement: Fair judgement present (Psych) Results AMB Urinalysis, Automated UA Leukoctes 0 Alex/uL Last Edit by REGINA Cheney on 10/23/25 09:03 UA Nitrite Negative Last Edit by REGINA Cheney on 10/23/25 09:03 UA Urobilinogen 0.2 mg/dL Last Edit by REGINA Cheney on 10/23/25 09:03 UA Protein 0 mg/dL Last Edit by Raya Lynn CCM on 10/23/25 09:03 UA pH 6.0 Last Edit by Raya Lynn [facility] [place] [facility] on 10/23/25 09:03 UA Blood 0 Eduardo/uL Last Edit by Raya Lynn [facility] [place] [facility] on 10/23/25 09:03 UA Specific [place] 1.015 Last Edit by Raya Lynn CCM on 10/23/25 09:03 UA Ketone Negative Last Edit by Raya Lynn CCM on 10/23/25 09:03 UA Bilirubin 0 mg/dL Last Edit by Raya Lynn [facility] [place] [facility] on 10/23/25 09:03 UA Glucose 1000 mg/dL Last Edit by Raya Lynn [facility] [place] [facility] on 10/23/25 09:03 Results Reviewed Results Reviewed: Laboratory Last Values Urine pH (Auto) 6.0 10/23/25 08:34 Specific [place] (Auto) 1.015 10/23/25 08:34 Urine Protein (Auto) 0 mg/dL 10/23/25 08:34 Glucose (UA)(Auto) 1000 mg/dL 10/23/25 08:34 Urine Ketones (Auto) Negative 10/23/25 08:34 Urine Blood (Auto) 0 Eduardo/uL 10/23/25 08:34 Urine Nitrite (Auto) Negative 10/23/25 08:34 Urine Bilirubin (Auto) 0 mg/dL 10/23/25 08:34 Urine Urobilinogen (Auto) 0.2 mg/dL 10/23/25 08:34 Leukocyte Esterase (Auto) 0 Alex/uL 10/23/25 08:34 Assessment & Plan Assessment & Plan (1) Erectile dysfunction associated with type 2 diabetes mellitus: Code(s): E11.69 - Type 2 diabetes mellitus with other specified complication; N52.1 - Erectile dysfunction due to diseases classified elsewhere Category: Medical (2) Hypogonadism in male: Code(s): E29.1 - Testicular hypofunction Category: Medical Plan In office urinalysis results reviewed with the patient today; as noted above. Most recent testosterone labs reviewed with the patient today; as noted above. We did discuss hypogonadism and erectile dysfunction at length. We discussed further treatment options and risks and benefits of these treatment options. All questions were answered to the best of my ability. He currently denies any bothersome urinary issues. Reports be happy with current voiding parameters. Start testosterone as discussed and prescribed. We did discussed lifestyle modifications. Will obtain CBC, PSA, and testosterone free and total in 3 months. Follow-up in 3 months with labs; or sooner with any issues, concerns, and or questions. Orders: Orders AMB Urinalysis Automated Today Z13.9 - Encounter for screening, unspecified Complete Blood Count no Diff 3 Months E29.1 - Testicular hypofunction Prostate Specific Antigen 3 Months E29.1 - Testicular hypofunction Testosterone, Free/Total 3 Months E11.69 - Type 2 diabetes mellitus with other specified complication, E29.1 - Testicular hypofunction, N52.1 - Erectile dysfunction due to diseases classified elsewhere Prolactin Today E29.1 - Testicular hypofunction Medications: New testosterone apply 2 pumps over max area - alternate shoulders on alternate days 2 pumps topical DAILY 75 grams 3RF 30 days E29.1 - Testicular hypofunction, R79.89 - Other specified abnormal findings of blood chemistry Patient Instructions: The patient had an opportunity to ask questions regarding the treatment plan. All questions were answered. Physical exam, labs, and imaging were discussed and reviewed in detail. As well as risks, benefits, and discussion of treatment choices. No major barriers to understanding were identified. The patient expressed understanding and agreement with the above treatment plan. The patient was made aware they should contact our office by phone for worsening of their current condition, the appearance of new symptoms, or with any questions or concerns. Compliance is encouraged with any medications and follow up testing that is ordered. It is a privilege to be allowed the opportunity to participate in? your urological care.? Again, if you have any questions or concerns If you have any questions or concerns please do not hesitate to contact me. The office is [phone]. This note is constructed using voice recognition software. While every effort has been made to ensure accuracy payroll consultant errors may have been included. Yours sincerely, VERONICA Lee Coding Level of Care Code Est Pt Level 4 (89941) Add On Problem Visit Only Diagnoses Erectile dysfunction associated with type 2 diabetes mellitus E11.69; N52.1 Hypogonadism in male E29.1
--- OUTSIDE RECORDS SUMMARY | 2025-10-23 08:28 | XMS_ITS | Patient Health Record ---
Author Organization [facility] Address [address] [place] [address] Support Name Relationship Address Phone REZA HOLM Emergency Contact [address] [place], [place] [id number] PABLO GONZALEZ Guarantor Unknown [phone] Care Team Providers Care Health Information Director Name Role Phone Domo ESPINAL, Renetta Primary Care Provider Candis e Rodríguez Sahh Jr Unavailable [phone] Allergies Allergen (clinical drug ingredient) Drug/Non Drug Allergy documented on EMR Reaction Allergy Type Onset Date Status Iodine Unknown Drug Allergy Active Results Component Value Reference Range Flag Notes Glucose, Whole Blood Reviewed date:10/08/2025 08:37:50 AM Interpretation: Performing Lab:[facility], [address] [place] [phone] Notes/Report: Glucose, Whole Blood 161 60-115 mg/dL H [place] TER #: [id number] Pathology Reviewed date:10/11/2025 10:33:48 AM Interpretation: Performing Lab:[facility], [address] [place] [phone] Notes/Report: Reason For Referral Referring Provider First Name Renetta Referring Provider Last Name Domo Referring Provider Speciality Internal M edicine Referred Organization [facility] Referred Provider Rodríguez Shah Jr Referred Address [address],[place], [place],[address], Referred Provider Specialty Gastroentero logy Referral Priority [...] Problem Gastro-esophagea l reflux disease without esophagitis (980237488) Gastro-esophage al reflux disease without esophagitis (K21.9) Active confirmed Problem Screening for malignant neoplasm of colon (919361844) Encounter for screening for malignant neoplasm of colon (Z12.11) Active confirmed Problem Fatty liver (854899446) Fatty liver (K76.0) Active confirmed Vital Signs Temperature 96.7 degrees Fahrenheit 08/29/2025 Blood pressure diastolic 01 mm Hg 08/29/2025 Height 70.5 in 08/29/2025 Blood pressure systolic 001 mm Hg 08/29/2025 Weight 235.4 lbs 08/29/2025 BMI 33.3 kg/m2 08/29/2025 Encounters Encounter Location Date Provider Diagnosis [facility] [address] [place] [id number] 10/05/2025 Rodríguez Shah Jr [facility] [address] [place] [phone] 08/29/2025 Rodríguez Shah Jr Encounter for screening for malignant neoplasm of colon Z12.11 and Fatty liver K76.0 [facility] [address] [place] [phone] 04/10/2025 Rodríguez Shah Jr [facility] [address] [place] [phone] 08/29/2025 Rodríguez Shah Jr [facility] [address] [place] [phone] 10/11/2025 Rodríguez Shah Jr [facility] [address] [place] [phone] 10/11/2025 Rodríguez Shah Assessments Encounter Date Diagnosis (ICD Code) Assessment [...] Test Test Name Order Date COLONOSCOPY 08/29/2025 Insurance Providers Payer Name Payer Address Payer Phone Subscriber Number Group Number Insured Name Patient Relationship to Insured Coverage Start Date Coverage End Date MEDICAID [facility] [address] [place] [id number] PABLO MÉNDEZ Self - patient is the insured Medical (General) History Medical History History ICD Code asthma esophageal reflux human immunodeficiency virus (HIV), posi tive hypertension [place] 2008 glucose intolerance Surgical History Surgery Date(Month/Year) port for chemo
== END 2025-10-23 08:58 | disposition home or self-care (01) ==
LOC: HO.HUSH 08:20
PROVIDERS: PCP Family Medicine; Visit Provider Nurse Practitioner Family
DX: E11.69 Type 2 diabetes mellitus with other specified complication (principal); N52.1 Erectile dysfunction due to diseases classified elsewhere; E29.1 Testicular hypofunction; Z13.9 Encounter for screening, unspecified
CPT/HCPCS: 99214

== ENCOUNTER → 2025-10-23 08:19 | Outpatient (BNVA) | payer MEDICAID, SELFPAY | PROVIDERS: PCP Family Medicine; Visit Provider Nurse Practitioner Family | DX: E11.69 Type 2 diabetes mellitus with other specified complication (principal); N52.1 Erectile dysfunction due to diseases classified elsewhere; E29.1 Testicular hypofunction; R79.89 Other specified abnormal findings of blood chemistry; Z79.82 Long term (current) use of aspirin; Z79.4 Long term (current) use of insulin | CPT/HCPCS: 81003; 99212 ==

== ENCOUNTER 2025-10-24 09:20 | Outpatient (AMB) | payer MEDICAID, SELFPAY ==
--- OUTSIDE RECORDS SUMMARY | 2025-04-30 06:00 | XMS_ITS ---
Author Organization [facility] Address [address] [place] [address] Care Team Providers Care Diaphragm Builder Name Role Phone Domo ESPINAL, Renetta Primary Care Provider Rodríguez Ma Jr REASON FOR VISIT discuss colonoscopy Encounters Encounter Location Date Provider Diagnosis [facility] [address] [place] [address] 04/30/2025 Rodríguez Shah Jr Plan Of Treatment No Information Progress Notes * PABLO GONZALEZDOB:1964 (60 yo M)Acc No.[id number]:04/30/2025 Progress Notes Patient: PABLO BROWN Provider: Mya Shah MD :1965 A ge:59 Y S ex:Male Date:04/30/2025 Address:[address] [place] [address], [facility] Pcp:Renetta Oliveros MD Subjective: * Chief Complaints: * D iscuss colonoscopy * The named appointment provid er may or may not be the originator of this progress note, and it is not deemed complete until electronically signed by the appointment provider. Sign off status: Pending * Provider: Mya Shah MD Date: 0 04/30/2025 Generated for Janei kesha/José/eTransmitting on: 1 12/25/2024 09:24 AM EST
--- OUTSIDE RECORDS SUMMARY | 2025-10-05 04:50 | XMS_ITS ---
Author Organization [facility] Address [address] [place] [address] Support Name Relationship Address Phone REZA HOLM Emergency Contact [address] [place], [place] [id number] PABLO GONZALEZ Guarantor Unknown [phone] Care Team Providers Care Spot Cleaner Name Role Phone Domo ESPINAL, Renetta Primary Care Provider Rodríguez Ma Jr REASON FOR VISIT screening Encounters Encounter Location Date Provider Diagnosis [facility] [place] Out[facility] [address] [place], [place] [id number] 10/05/2025 Rodríguez Shah Jr Plan Of Treatment No Information Progress Notes * PABLO GONZALEZDOB:1964 (60 yo M)Acc No.[id number]:10/05/2025 COLON WITH MAC Patient: PABLO BROWN Provider: Mya Shah MD :1965 A ge:60 Y S ex:Male Date:10/05/2025 Address:[address] [place], [place] [phone] Pcp:Renetta Oliveros MD Subjective: * Chief Complaints: * S creening Billing Information: * Procedure Codes: * The named appointment provid er may or may not be the originator of this progress note, and it is not deemed complete until electronically signed by the appointment provider. Sign off status: Pending * Provider: Mya Shah MD Date: 12/06/2024 Generated for Janei kesha/José/eTransmitting on: 12/25/2024 09:24 AM EST
--- OUTSIDE RECORDS SUMMARY | 2025-10-24 09:24 | XMS_ITS | Clinical Summary ---
Author Organization [facility] Address [address] [place] [address] Care Team Providers Care Antique Furniture Reproducer Name Role Phone Unknown, Provider MD Primary [...] COVID-19 Vaccine (2024- season) 2025 Care Teams Antique Furniture Reproducer Relationship Specialty Start Date End Date Unknown, Provider, PCP - General 09/06/15
--- OUTSIDE RECORDS SUMMARY | 2025-10-24 09:25 | XMS_ITS | Patient Health Record ---
Author Organization [facility] Address [address] [place] [address] Support Name Relationship Address Phone REZA HOLM Emergency Contact [address] [place], [place] [id number] PABLO GONZALEZ Guarantor Unknown Care Team Providers Care Co Teacher Name Role Phone Domo ESPINAL, Renetta Primary Care Provider Candis e Rodríguez Shah Jr Unavailable [phone] Allergies Allergen (clinical drug ingredient) Drug/Non Drug Allergy documented on EMR Reaction Allergy Type Onset Date Status Iodine Unknown Drug Allergy Active Results Component Value Reference Range Flag Notes Glucose, Whole Blood Reviewed date:10/08/2025 08:37:50 AM Interpretation: Performing Lab:[facility], [address] [place] [phone] Notes/Report: Glucose, Whole Blood 161 60-115 mg/dL H [place] TER #: [id number] Pathology Reviewed date:10/11/2025 10:33:48 AM Interpretation: Performing Lab:[facility], [address] [place] [phone] Notes/Report: Reason For Referral Referring Provider First Name Renetta Referring Provider Last Name Domo Referring Provider Speciality Internal M edicine Referred Organization [facility] Referred Provider Rodríguez Shah Jr Referred Address [address] [facility],[place], [place],[address], Referred Provider Specialty Gastroentero logy Referral Priority [...] prep Orally Once a day 08/29/2025 Active raNITIdine HCl 300 MG Capsule 1 capsule at [...] Problem Gastro-esophagea l reflux disease without esophagitis (641324618) Gastro-esophage al reflux disease without esophagitis (K21.9) Active confirmed Problem Screening for malignant neoplasm of colon (949601303) Encounter for screening for malignant neoplasm of colon (Z12.11) Active confirmed Problem Fatty liver (783470176) Fatty liver (K76.0) Active confirmed Vital Signs Temperature 96.7 degrees Fahrenheit 08/29/2025 Blood pressure diastolic 01 mm Hg 08/29/2025 Height 70.5 in 08/29/2025 Blood pressure systolic 001 mm Hg 08/29/2025 Weight 235.4 lbs 08/29/2025 BMI 33.3 kg/m2 08/29/2025 Encounters Encounter Location Date Provider Diagnosis [facility] [address] [place] [id number] 10/05/2025 Rodríguez Shah Jr [facility] [address] [place] [phone] 08/29/2025 Rodríguez Shah Jr Encounter for screening for malignant neoplasm of colon Z12.11 and Fatty liver K76.0 [facility] [address] [place] [phone] 04/10/2025 Rodríguez Shah Jr [facility] [address] [place] [phone] 08/29/2025 Rodríguez Shah Jr [facility] [address] [place] [phone] 10/11/2025 Rodríguez Shah Jr [facility] [address] [place] [phone] 10/11/2025 Rodríguez Shah Assessments Encounter Date Diagnosis [...] Start Date Coverage End Date [facility] [address] [place] [id number] PABLO MÉNDEZ Self - patient is the insured Medical (General) History Medical History History ICD Code asthma esophageal reflux human immunodeficiency virus (HIV), posi tive hypertension [place] 2008 glucose intolerance Surgical History Surgery Date(Month/Year) port for chemo
--- NOTE | 2025-10-24 09:54 | MHC.OFFVIS ---
Intake Visit Reasons: Diabetic mellitus Intake Note: Radhames is a 60 year old male who presents today as a new patient for a diabetic foot exam. Patient reports glocose 153 as of this morning last A1C: 6.6 ON 10.05.25 Allergies iodine (IODINE) Allergy (Unknown, Verified 10/24/25 09:55) DIFFICULTY BREATHING SEAFOOD Allergy (Unknown, Uncoded 10/23/25 08:59) ANAPHYLAXIS HPI HPI Diabetic mellitus: Details: 60-year-old male with past medical history diabetes mellitus type 2, hypertension, hyperlipidemia, KARINA, bilateral knee arthritis, restless legs syndrome seen today for initial diabetic foot evaluation and bilateral foot pain. He denies any burning or tingling sensation to his feet. He does endorse symptoms of numbness. He is also complaining of bilateral heel arch pain, worse when ambulating. He has not tried any treatment thus far. [facility] Medical History Obstructive sleep apnea Glucose intolerance Myocardial infarction (~2008) HTN (hypertension) Asthma Anemia of chronic disease GERD (gastroesophageal reflux disease) Dyslipidemia Tubular adenoma of colon Essential hypertension Peripheral polyneuropathy HIV (human immunodeficiency virus infection) Surgical History History of insertion of central venous access port History of cardiac catheterization Family History Sister Diabetes Kidney problem Father Diabetes Mother Diabetes Brother Diabetes Kidney problem Heart problem Brother Diabetes Lymphoma Other Family history of arthritis Social History Household Members: Spouse Housing: Apartment Are you a primary caregiver assisted living to a significant other at home: No Do you presently have visiting nurse or other home services: No Alcohol intake: former Patient Tobacco Use Status: Former Tobacco user service: No Current occupational status: disabled Review of Systems Const All systems reviewed & are unremarkable except as noted in HPI and below Physical Exam Psych Other: *Bilateral Lower Extremity Focused Diabetic Foot Exam Vascular: DP/PT 2/4, CFT<3s to digits, TG warm to cool, no pedal edema, pedal hair absent Derm: Skin: No open lesions, ulcerations, or calluses. Interdigital spaces: Clear, no maceration or fungal infection. Nails: No onychomycosis, paronychia, or ingrown nails. Neuro: New [place]-naman monofilament (10g) test 8/10 intact to right foot, 9/10 intact to left foot. Msk: mild tenderness on palpation of plantar medial calcaneal tubercle bilateral feet. No pain on palpation of the Achilles tendon. Ankle dorsiflexion 0 degrees on knee extension, 3-4 degrees on knee flexion. Moderate arch cavus feet deformity bilaterally. Deformities: No evidence of hammertoes, bunions, Charcot changes, or other structural abnormalities. Muscle strength: 5/5 in all muscle groups. Gait: Normal, no antalgic or steppage gait observed. Footwear Assessment: Shoes inspected; appropriate fit, no excessive wear, or foreign objects noted. Results Reviewed Results Reviewed: Laboratory Tests 10/05/25 07:17 Hemoglobin A1c % 6.6 H Assessment & Plan Assessment & Plan (1) Plantar fasciitis, bilateral: Code(s): M72.2 - Plantar fascial fibromatosis Category: Medical Plan: Discussed etiology of the patient's foot pain. Differential diagnosis includes plantar fasciitis, neuritis, tendinitis. Patient educated on the nature and etiology of plantar fasciitis, which involves inflammation and microtearing of the plantar fascia due to repetitive stress and overuse. The patient was counseled on conservative management of plantar fasciitis, including daily stretching exercises targeting the plantar fascia and Achilles tendon, use of supportive and properly fitting footwear, and consideration of [id number] orthotics to improve foot biomechanics and arch support. A handout for powerstep was dispensed. Discussed that if symptoms persist despite these measures, further interventions such as corticosteroid injections may be considered. Instructed the patient on home stretching and range of motion exercises including calf-stretches, frozen water bottle therapy, band-therapy. A handout was dispensed Referred to physical therapy. Follow up in 3 weeks. May consider steroid injection at that point. (2) Type 2 diabetes mellitus: Code(s): E11.9 - Type 2 diabetes mellitus without complications Category: Medical Qualifiers: Diabetes mellitus skilled nursing insulin use: without skilled nursing use Diabetes mellitus complication status: with neurologic complications Diabetes mellitus complication detail: with polyneuropathy Qualified Code(s): E11.42 - Type 2 diabetes mellitus with diabetic polyneuropathy Plan: Risk Stratification: No current ulceration, infection, or pre-ulcerative lesion. Mild loss of protective sensation. No significant clinical exams of peripheral arterial disease. No plans for further testing/referrals for non-invasive vascular studies. Patient is at low risk for diabetic foot complications at this time. Recommendations: Continue routine foot care and daily self-inspection. Recommend moisturizing daily. Recommend supportive proper fitting shoe-wear. The patient may require diabetic shoes in the future. Reinforced diabetic foot education and risks from peripheral neuropathy. 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
== END 2025-10-24 10:28 | disposition home or self-care (01) ==
LOC: HO.HPODS 09:21
PROVIDERS: PCP Family Medicine; Visit Provider Student in an Organized Health Care Education/Training Program
DX: M72.2 Plantar fascial fibromatosis (principal); E11.42 Type 2 diabetes mellitus with diabetic polyneuropathy
CPT/HCPCS: 99204

== ENCOUNTER → 2025-10-24 09:20 | Outpatient (BNVA) | payer MEDICAID, SELFPAY | PROVIDERS: PCP Family Medicine; Visit Provider Student in an Organized Health Care Education/Training Program | DX: M72.2 Plantar fascial fibromatosis (principal); E11.42 Type 2 diabetes mellitus with diabetic polyneuropathy | CPT/HCPCS: 99202 ==